=== PATIENT | female | born 1940 | race Caucasian/White ===

== ENCOUNTER 2023-10-09 22:49 | Inpatient (IN) | payer MEDICARE, SELFPAY ==
[2023-10-09] VITALS (8 sets, daily range): BP systolic 133–179; BP diastolic 80–103
[2023-10-09 20:48] LABS: Glucose - Point of Care 120 mg/dl (70-99)
--- NOTE | 2023-10-09 21:05 | ED.CVA ---
History of Present Illness
General
Chief Complaint: CVA/TIA Symptoms
Source: family (Son) and ambulance crew
Exam Limitations: none
Time Seen by Provider: 10/09/23 20:39
Onset of Stroke Symptoms
Onset of symptoms known: Yes
Date of onset of symptoms: 10/09/23
Time of onset of symptoms: 17:30
Travel History
Have you had any contact with someone who has COVID-19?: Unable to Answer
Do you have any symptoms of coronavirus? Fever > 100 degrees, chills, cough, shortness of breath, sore throat, loss of taste or smell, muscle aches, or headache?: Unable to Answer
History of Present Illness
History of Present Illness:
83-year-old female lives in assisted living with her . At about 530 her noted difficulty expressing herself and seemed confused. They contacted the staff and patient was brought in as a prehospital stroke alert. Initial history was
very difficult to get and the ambulance crew was somewhat confused as to the time onset and her baseline. Patient does not add history
Past History
Past History
ED Past Medical History: Arrthythmia, CAD, Other (Dementia) and Other (Rheumatoid arthritis)
Review of Systems
Review of Systems
All Other Systems: Not applicable
Phy Exam
Physical Exam
Physical Exam:
GENERAL: Alert. No distress. Nontoxic-appearing
EYE: Orbits normal.
NECK: Supple, no significant adenopathy.
ENT: Pharynx without erythema
CARDIAC: Regular rate and rhythm with moderate midsystolic murmur s.
LUNGS: Clear breath sounds,normal
ABDOMEN: Soft, without focal tenderness or distention
NEUROLOGICAL: Alert. Oriented to first name. Will reorient the last name with confrontation. Aware she is in the hospital. No facial droop. Eye confrontation normal. No arm drift. Bilateral lower extremity leg weakness but symmetrical. Light
touch difficult to evaluate but appears intact. Moderate expressive aphasia
SKIN: Warm and dry, no rash or lesion, no discoloration, skin intact.
MUSCULOSKELETAL: No edema,no deformity.Good color
PSYCH: Normal and appropriate interaction.
Scores
NIH Stroke Score
Level of Consciousness: 0 - Alert
LOC Questions: 0-Answers both correctly
LOC Commands: 0-Performs both correctly
Best Horizontal Gaze: 0-Normal
Visual Bridges: 0=Normal, no visual loss
Facial Palsy: 0=Normal, symmetrical
Motor - Right Arm: 0=No drift 10 seconds
Motor - Left Arm: 0=No drift 10 seconds
Motor - Right Le-No drift 5 seconds
Motor - Left Le-No drift 5 seconds
Limb Ataxia: 0-Absent
Sensation: 0-Normal
Best Language: 2-Severe aphasia
Dysarthria: 0-Normal
Extinction and Inattention: 0-No abnormality
Total Score:: 2
Course
Orders/Labs/Results
Orders:
Orders
10/09/23 20:35
CT Head W/o Cont STROKE ALERT Stat
Comment:
Reason For Exam: stroke alert
10/09/23 20:37
Electrocardiogram (*1) Urgent
Reason for Study: Other
Other Reason for Exam: Possible Stroke
Bedside Glucose- Treatment ONCE
Cardiac Monitoring- Treatment ONCE
EKG- Treatment ONCE
IV Insert/Care/Rem.- Treatment PRN
Urinalysis Reflex To Culture Urgent
Date Specimen was Collected: 10/09/23
Time Specimen was Collected: 20:37
Vital Signs As Directed
Frequency: Other
Weight As Directed
Frequency: Once
Comment: ZERO STRETCHER SCALE FOR ACCURATE WEIGHT
O2 Therapy [RESP] Urgent
Titrate/Wean O2 to maintain O2 sat greater than (%): 93
Special Instructions: MAINTAIN CONTINUOUS O2 SATS > OR = 93%
10/09/23 21:20
Complete Blood Count/With Diff Urgent
Comprehensive Metabolic Panel Urgent
PTT Urgent
Prothrombin Time Urgent
Troponin I Urgent
10/09/23 21:42
Aspirin Chewable [Low Strength Aspirin] 324 mg PO NOW STA
Clopidogrel Bisulfate [Plavix] 300 mg PO NOW STA
10/09/23 22:07
Admit/Transfer Patient As Directed
Co-Sign Provider:
Level of Care: Observation services
Assign to:: Telemetry
Physician / Group: lance
Diagnosis: cva
Reason for Telemetry: CVA/TIA
Date to Stop Telemetry: 10/12/23
Time to Stop Telemetry: 11:00
10/09/23 22:08
Code Status As Directed
Resuscitation Status: Full Code
10/09/23 22:49
Acetaminophen [Tylenol/Feverall] 650 mg RECTAL Q4HPRN PRN
Acetaminophen [Tylenol] 650 mg PO Q4HPRN PRN
Polyethylene Glycol Powder [Miralax] 17 grams PO DAILY PRN
10/09/23 22:49
Case Management Consult ONCE
Case Management Consult: Discharge Planning
Comment: stroke/tia
Consult Notification Routine
Specialty to Notify: Neurology
DIETARY CONSULT Routine
Reason for Consult: stroke/TIA
NEUROLOGY CONSULT Urgent
Consulting Provider: Steven Kunz
Was physician already notified: No
Reason for consult: cvA
Transition Program Manager Urgent
Glycohemoglobin (HgbA1c) Routine
MA [place] [facility] [place] Routine
Comment:
Reason For Exam: stroke/TIA
Recent pill cam endoscopy?: No
MA Neck With Contrast Routine
Comment:
Reason For Exam: stroke/TIA
Recent pill cam endoscopy?: No
MR Brain Without Contrast Routine
Comment:
Reason For Exam: stroke/TIA
Recent pill cam endoscopy?: No
Activity As Directed
Activity Level: As Tolerated
NIH Stroke Scale As Directed
Directions: Per protocol
Comment: every shift and with any change in condition or mental status
Neurological Checks As Directed
Frequency: q4h
Additional Instructions:: q4h x 24h upon admission to the floor, then qshift & with any change in condition
and mental status
Patient Education As Directed
Type: Stroke education packet
Comment: provide to patient and family
Pneumatic Compression Sleeves As Directed
Type: Thigh high
Swallow Screening CVA/TIA ONLY As Directed
Comment: NPO until swallowing screening completed
If patient FAILS swallow screening:: NPO, Speech Therapy consult, Aspiration Precautions
If patient PASSES swallow screening, diet:: Cholesterol Lowering
Vital Signs As Directed
Frequency: Per unit guidelines
Ot Eval And Treat Routine
Pt Eval And Treat Routine
Activity Level: As Tolerated
Speech Therapy Eval & Treat Routine
DX Deep Vein Thrombosis Video Routine
10/10/23 00:00
Oxycodone [Roxicodone] 10 mg PO Q6H
10/10/23 06:00
Basic Metabolic Panel IN AM
Cardiovascular Evaluation IN AM
Complete Blood Count/No Diff IN AM
Acetaminophen [Tylenol] 650 mg PO Q8H
mtuhnkvvtcu-njengjflb-ezk C-Mn [Glucosamine Chondroitin MaxStr] 1 cap PO TID@0600,1400,22
10/10/23 08:00
Aspirin Chewable [Low Strength Aspirin] 81 mg PO DAILY
Clopidogrel Bisulfate [Plavix] 75 mg PO DAILY
Docusate Sodium [Colace] 100 mg PO Q48H
Pantoprazole [Protonix] 40 mg PO DAILY
10/10/23 09:00
Rosuvastatin Calcium [Crestor] 40 mg PO DAILY@0900
camphor-methyl salicyl-menthol [Salonpas] 1 patch TOPICAL DAILY@0900
10/10/23 21:00
Sertraline HCl [Zoloft] 25 mg PO DAILY@2100
10/12/23 11:00
DC Protocol for Telemetry ONCE
Abnormal Lab Results
10/09/23 10/09/23
20:44 21:20
RBC 3.59 L 10^6/uL
(4.20-5.40)
Hgb 10.3 L g/dL
(12.0-16.0)
Hct 30.0 L %
(37.0-47.0)
Absolute Lymphs (auto) 1.1 L 10^3/uL
(1.2-3.4)
Absolute Monos (auto) 0.8 H 10^3/uL
(0.1-0.6)
Lymphocytes % 17.4 L %
(20.5-51.1)
Monocytes % 11.6 H %
(1.7-9.3)
Sodium 134 L mmol/L
(135-145)
Creatinine 0.5 L mg/dL
(0.6-1.0)
Glucose 111 H mg/dl
(70-99)
POC Glucose 120 H mg/dl
(70-99)
10/09/23 21:20
10/09/23 21:20
Vital Signs
Initial and Last Documented VS:
Initial Vital Signs
Temp Pulse Resp BP Pulse Ox
98.0 F 94 18 165/92 97
10/09/23 20:43 10/09/23 20:43 10/09/23 20:43 10/09/23 20:43 10/09/23 20:43
Last Documented Vital Signs
Temp Pulse Resp BP Pulse Ox
98.0 F 93 19 154/90 98
10/09/23 20:43 10/09/23 22:00 10/09/23 22:00 10/09/23 22:00 10/09/23 21:46
*Radiology
Radiology exam reviewed: radiology read reviewed (Negative CT)
*Pulse Oximetry
Patient hypoxic: no
*Critical Care Note
Total Time (30-74mins, 75-104mins- exclusive of procedures): 40
Update Note
Update Note:
2109.... Lengthy discussion with the son. Patient is in the window for thrombolytics. Major issue is clearly her speech. Risk of thrombolytics versus benefit explained to the son. 5% bleed rate. 30 to 35% improvement in 2 to 3 months. Son
states patient had a similar episode a year or so ago at [facility] that self resolved. He does not want to take the risk of a bleed. He is fully aware that this may not resolve and may stay permanent or may only partly improved.
ED Attending Note
-
Portions of this chart may have been created with voice recognition software.� Occasional wrong word or��sound alike� substitutions may have occurred due to the inherent limitations of voice recognition software.
Discharge Plan
Departure
Patient Disposition: Admit
Date of Disposition: 10/09/23
Time of Disposition: 21:43
Presentation/result/management discussed w/ accepting MD/DO: Neurology
Discharge Problem:
Expressive aphasia/CVA
Interventions
Interventions:
*Risk Screen - Suicide Last Done: 10/09/23 20:43
*General Assessment Last Done: 10/09/23 20:43
*Neglect/Abuse Screening Last Done: 10/09/23 20:43
ED- Fall Risk Assessment Last Done: 10/09/23 22:55
*ED COVID-19 Vaccine History Last Done: 10/09/23 22:54
*Nursing Disposition Last Done: 10/09/23 22:55
ED- Pulmonary Assessment Last Done: 10/09/23 21:23
ED- Neurological Assessment Last Done: 10/09/23 21:13
ED- Cardiac Assessment Last Done: 10/09/23 21:23
ED Swallowing Screen Last Done: 10/09/23 22:08
Discharge Date and Time
Discharge Date/Time: 10/09/23 22:56
[2023-10-09 21:26] LABS: % Basophils 0.6 % (0-2); % Eosinophils 2.9 % (0-6); % Immature Granulocytes 0.3 % (0-0.5); % Lymphocytes 17.4 % (20.5-51.1); % Monocytes 11.6 % (1.7-9.3); % Neutrophils 67.2 % (42.2-75.2); Absolute Eosinophils 0.2 10^3/uL (0-0.7); Absolute Lymphocytes 1.1 10^3/uL (1.2-3.4); Absolute Monocytes 0.8 10^3/uL (0.1-0.6); Absolute Neutrophils 4.4 10^3/uL (1.4-6.5); Hemoglobin 10.3 g/dL (12.0-16.0); Mean Corp Hgb Conc. 34.3 g/dL (33.0-37.0); Mean Corpuscular Hgb 28.7 pg (27.0-31.0); Mean Corpuscular Volume 83.6 fL (81.0-99.0); Mean Platelet Volume 8.9 fL (7.4-10.4); Nucleated Red Blood Cells % 0 %; Platelet Count 249 10^3/uL (130-400); Red Blood Cell Count 3.59 10^6/uL (4.20-5.40); Red Cell Dist. Width 14.4 % (11.5-14.5); White Blood Cell Count 6.6 10^3/uL (4.8-10.8)
[2023-10-09 21:38] LABS: ALT (SGPT) 11 U/L (0-35); AST (SGOT) 21 U/L (14-36); Alkaline Phosphatase 38 U/L (38-126); Blood Urea Nitrogen 15 mg/dl (7-17); Calcium 9.4 mg/dl (8.4-10.2); Carbon Dioxide 30 mmol/L (22-30); Chloride 99 mmol/L (98-107); Glucose 111 mg/dl (70-99); Potassium 3.7 mmol/L (3.5-5.1); Sodium 134 mmol/L (135-145); Total Bilirubin 0.4 mg/dl (0.2-1.3); Total Protein 6.6 g/dl (6.3-8.2); eGFR > 60.00
[2023-10-09 21:39] LABS: INR 0.96; PT 12.5 Sec (11.4-14.6)
[2023-10-09 21:40] LABS: APTT 27.5 Sec (23.4-35.0)
--- NOTE | 2023-10-09 21:46 | HPS.HSE ---
Family Physician
-
Family Physician: Luis Fernando Bonilla
Chief Complaint
-
dysphagia
History of Present Illness
83 year old with PMH for Gait dysfunction, CAD, Dementia, HLD, pulmonary HTn, valvular heart disease, GERD presented to us with dysphagia. patient having difficultly expressing. follows commands. denied FLAHERTY, dizzy or syncopal episode. denied chest
pain, sob. denied abdominal pain.
Head CT with no acute findings. admitting for further management.
Medical History
Past Medical History
Past Medical History: Reports Other
Additional Past Medical History:
gait dysfunction
CAD
RA
HLD
pulmonary HTN
Valvualr heart disease
GERD
Past Surgical History: Reports None
Social History
Unable to obtain full social history at this time due to: Other (aphasia)
Family History
Family History: Not pertinent
Allergies / Home Medications
Allergies reflects when Allergies were last updated in [facility].
Home Medications with original date entered in [facility]
Allergy/Medication List:
Allergies
Allergy/AdvReac Type Severity Reaction Status Date / Time
No Known Allergies Allergy Unverified 10/09/23 20:43
Home Medications
acetaminophen 325 mg tablet (Tylenol) 650 mg PO Q8H@0600,1400,22 3000 mg 10/09/23
camphor 3.1 %-methyl salicylate 10 %-menthol 6 % topical patch (Salonpas) 1 patch topical DAILY@0900 apply to painful area 10/09/23
docusate sodium 100 mg capsule 100 mg PO Q48H@0800 10/09/23
ahoksefrslf-oulajfggh-vnz C-Mn 500 mg-400 mg capsule (Glucosamine Chondroitin Maximum Strength) 1 cap PO TID@0600,1400,22 10/09/23
oxycodone 10 mg tablet 10 mg PO Q6H@0000,0600,12,18 10/09/23
pantoprazole 40 mg tablet,delayed release 40 mg PO DAILY 10/09/23
polyethylene glycol 3350 17 gram oral powder packet 17 g PO DAILY PRN constipation 10/09/23
rosuvastatin 10 mg tablet 10 mg PO DAILY@0900 10/09/23
sertraline 25 mg tablet 25 mg PO DAILY@2100 10/09/23
Review of Systems
-
Constitutional: Reports No Symptoms
EENT: Reports No Symptoms
Respiratory: Reports No Symptoms
Cardiac: Reports No Symptoms
Abdomen/GI: Reports No Symptoms
: Reports No Symptoms
Musculoskeletal: Reports No Symptoms
Skin: Reports No Symptoms
Neurological: Reports No Symptoms
Endocrine: Reports No Symptoms
Hematologic/Lymphatic: Reports No Symptoms
Psych: Reports No Symptoms
Physical Exam
Vital Signs
Vital Signs
Temp Pulse Resp BP Pulse Ox
98.0 F 97 16 157/101 95
10/09/23 20:43 10/09/23 21:15 10/09/23 21:15 10/09/23 21:15 10/09/23 21:00
Physical Exam
General: Well Developed, Well Nourished and No Apparent Distress
HEENT: NormoCephalic, Moist mucous membranes and Atraumatic
Respiratory: Clear
Cardiac: S1/S2 and Regular Rhythm; No Murmur or Rub
GI: Soft, Non Tender, Non Distended and Normal Bowel Sounds; No Organomegaly
Rectal: Deferred by Provider
Musculoskeletal: No Clubbing, No Cyanosis and No Edema
Skin: No Rash
Neuro: Nonfocal/grossly intact
Psych: Calm
Laboratory Results
-
10/09/23 21:20
10/09/23 21:20
Laboratory Results
PT 12.5 Sec (11.4-14.6) 10/09/23 21:20
INR 0.96 10/09/23 21:20
APTT 27.5 Sec (23.4-35.0) 10/09/23 21:20
Total Bilirubin 0.4 mg/dl (0.2-1.3) 10/09/23 21:20
AST 21 U/L (14-36) 10/09/23 21:20
ALT 11 U/L (0-35) 10/09/23 21:20
Alkaline Phosphatase 38 U/L (38-126) 10/09/23 21:20
Data Reviewed
-
CT Scan: Report Reviewed by me
Lab Data: Labs Reviewed by me
Impression/Plan
-
#expressive aphasia likely CVA
-head CT with no acute intracranial abnormality, moderate atrophy, minimal acute sphenoid sinusitis
-MRI of head
-MRA of neck
-asa/statin
-Plavix continued
-obtain a1c,lipid profile
-neurology consulted
#normocytic anemia likely chronic
-hgb 10.3
-no active bleeding
-ctm
#chronic pain
-oxy, Tylenol continued
#GERD
-PPI continued
#depression
-sertraline continued
#DVT prophylaxis
-scd
#CODE status
-full code
[2023-10-09 21:49] LABS: Troponin I < 0.012 ng/ml
[2023-10-09] MEDS: PLAVIX 300 MG PO (22:02)
[2023-10-09] MEDS: LOW STRENGTH ASPIRIN 324 MG PO (22:02)
--- NOTE | 2023-10-09 22:22 | W.PN.UPDATE ---
Update Note
Progress Note Update
Patient seen and examined independently. Agree with findings and plan as set forth in today's H&P by ARIS Mccoy.
Patient is an 83y F with PMH significant for ASCVD, dementia and valvular heart disease who presents to ED for evaluation of confusion, apparent speech abnormality. Patient resides at local assisted living where she was initially noted to appear
confused around 5:30PM by her . Patient was brought to the ED for further evaluation and treatment. Stroke alert was activated. Initial imaging of the head was unremarkable. Patient in the ED was noted to have significant expressive
aphasia without evident motor deficits or apparent receptive aphasia.
ED staff spoke with son re: thrombolytic therapy. Family decline TNKase.
Son states that patient had a similar episode about one year ago at [facility] which fully resolved.
Ass:
Expressive Aphasia
Likely CVA
ASCVD
Valvular Heart Disease
Pulmonary Hypertension
Senile Dementia
Normocytic Anemia
Plan:
Admit for further evaluation and treatment.
Family opted against thrombolytic therapy.
Begin DAPT.
Follow for changes in serial neuro exams.
PT / OT Speech therapy evals in AM.
Neuro consult.
MRI brain in AM.
Loose BP control for now - goal of normotension prior to discharge.
Check iron studies, etc.
[2023-10-10] VITALS (7 sets, daily range): BP systolic 143–166; BP diastolic 82–97; PULSE 94; O2SAT 96
[2023-10-10] MEDS: ROXICODONE 10 MG PO ×4 (00:39→17:33)
--- NOTE | 2023-10-10 01:41 | PTCARENOTE ---
Patient arrived from ED via stretcher at approximately 2245. Patient ambulated from stretcher to bed x1 assist with rolling walker. Patient AAOx1 - self only, confused/forgetful @ times w/ severe aphasia. Patient with history of dementia. VSS as
documented. Assessment as documented. NIH performed and documented upon admission. Patient with NIH of 6 - see NIH documentation. NIH of 2 in ER. RESIDENTIAL CONCIERGE notified of changes in NIH assessment. Patient oriented to room. Bed in lowest position. Call winston
within reach. Bed alarm placed for patient safety.
[2023-10-10] MEDS: TYLENOL 650 MG PO ×3 (05:27→21:10)
[2023-10-10 05:30] LABS: Hematocrit 31.4 % (37.0-47.0); Hemoglobin 10.5 g/dL (12.0-16.0); Mean Corp Hgb Conc. 33.4 g/dL (33.0-37.0); Mean Corpuscular Hgb 28.2 pg (27.0-31.0); Mean Corpuscular Volume 84.2 fL (81.0-99.0); Mean Platelet Volume 8.9 fL (7.4-10.4); Platelet Count 252 10^3/uL (130-400); Red Blood Cell Count 3.73 10^6/uL (4.20-5.40); Red Cell Dist. Width 14.3 % (11.5-14.5); White Blood Cell Count 6.7 10^3/uL (4.8-10.8)
[2023-10-10 05:57] LABS: Urine Albumin Negative (Neg - Trace); Urine Bilirubin Negative (Negative); Urine Character Clear (Clear); Urine Color Yellow; Urine Glucose Negative (Negative); Urine Ketone Negative (Negative); Urine Leukocyte Negative (Negative); Urine Nitrite Negative (Negative); Urine Occult Blood Trace (Negative); Urine Urobilinogen Negative (Neg - 1+)
[2023-10-10 06:00] LABS: Blood Urea Nitrogen 11 mg/dl (7-17); Calcium 9.9 mg/dl (8.4-10.2); Carbon Dioxide 31 mmol/L (22-30); Chloride 96 mmol/L (98-107); Glucose 95 mg/dl (70-99); HDL Cholesterol 52 mg/dl; Iron 68 ug/dl (37-170); LDL Cholesterol, Calculated 38 mg/dl; Potassium 3.5 mmol/L (3.5-5.1); Sodium 137 mmol/L (135-145); Total Cholesterol 104 mg/dl (50-199); Triglyceride 73 mg/dl (10-149); Very Low Density Lipoprotein 14 mg/dl (0-30); eGFR > 60.00
[2023-10-10 06:09] LABS: Urine Red Blood Cell 0-2 /HPF (0-2); Urine White Cell None Seen /HPF (0-5)
[2023-10-10 06:10] LABS: Percent Saturation 28 % (20-50); Total Iron Binding Capacity 240 ug/dl (265-497)
[2023-10-10] MEDS: CRESTOR 40 MG PO (08:04)
[2023-10-10] MEDS: LIDOCAINE 4% PATCH 1 PATCH TOPICAL (08:05)
[2023-10-10] MEDS: PROTONIX 40 MG PO (08:05)
[2023-10-10] MEDS: DESENEX/MITRAZOL/ZEASORB 1 APPLIC TOPICAL ×2 (08:05→21:09)
[2023-10-10] MEDS: LOW STRENGTH ASPIRIN 81 MG PO (08:05)
[2023-10-10] MEDS: PLAVIX 75 MG PO (08:05)
[2023-10-10] MEDS: COLACE 100 MG PO (08:05)
--- NOTE | 2023-10-10 08:21 | W.PN.HOSP.TC ---
Today's Communication/Plan
-
Await brain MRI
Assessment / Plan
Assessment / Plan
HPI: 83y F with PMH significant for ASCVD, dementia and valvular heart disease who presents to ED for evaluation of confusion, apparent speech abnormality. Patient resides at local assisted living where she was initially noted to appear
confused around 5:30PM by her . Patient was brought to the ED for further evaluation and treatment. Stroke alert was activated. Initial imaging of the head was unremarkable. Patient in the ED was noted to have significant expressive
aphasia without evident motor deficits or apparent receptive aphasia.
ED staff spoke with son re: thrombolytic therapy. Family decline TNKase.
Son states that patient had a similar episode about one year ago at [facility] which fully resolved.
A/P:
#Expressive Aphasia
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
Patient's family declined TNK
She was loaded with aspirin and Plavix in the ER
Appreciate neurology input, for brain MRI today
Continue DAPT with aspirin 81mg and Plavix 75mg daily x21 days, then continue aspirin 81mg daily only, indefinitely.
Permissive hypertension until today (10/10/23) at 1730, then goal normotension.
LDL is 38. Continue home rosuvastatin 10mg daily, HgbA1c is 5.5.
PT/OT/ST
#Normocytic Anemia
Iron studies reviewed, add ferritin
#ASCVD
#Valvular Heart Disease
#Pulmonary Hypertension
#Senile Dementia
DVT prophylaxis�start subcu heparin
Full code
Physical Exam
General: Frail, elderly, no acute distress
HEENT: Normocephalic, Atraumatic, EOMI, MMM
Respiratory: Clear to Auscultation bilaterally
Cardiac: Normal S1/S2, Regular Rate and Rhythm, loud murmur noted
GI: Soft, Nontender, Nondistended, Normal Bowel Sounds
Extremities: No Clubbing, Cyanosis, or Edema
Neuro: Expressive aphasia noted
Psych: Calm, Cooperative
Anticipated Discharge: 24 - 48 hours
Subjective/Interval History
-
Date of Service: October 10, 2023
Patient continues to have expressive aphasia, improved from admission. No fever, no vomiting.
Objective Data
-
Labs:
Laboratory Results
10/09/23 10/10/23
21:20 04:06
WBC 6.6 6.7
Hgb 10.3 L 10.5 L
Hct 30.0 L 31.4 L
Plt Count 249 252
PT 12.5
INR 0.96
APTT 27.5
Sodium 134 L 137
Potassium 3.7 3.5
Chloride 99 96 L
Carbon Dioxide 30 31 H
BUN 15 11
Creatinine 0.5 L 0.5 L
Glucose 111 H 95
Calcium 9.4 9.9
Total Bilirubin 0.4
AST 21
ALT 11
Alkaline Phosphatase 38
Vital Signs:
Vital Signs
Temp Pulse Resp BP Pulse Ox
98.4 F 91 16 162/88 95
10/10/23 07:40 10/10/23 07:40 10/10/23 07:40 10/10/23 07:40 10/10/23 07:40
I&O
10/09/23 10/10/23 10/11/23
06:59 06:59 06:59
Intake Total 180 / 180
Balance 180 / 180
[2023-10-10 08:52] LABS: Glycohemoglobin (HgbA1c) 5.5 % (4.0-5.6)
--- NOTE | 2023-10-10 08:55 | PTOTSP ---
Speech Language Pathology
Pt seen for speech/language evaluations. No dysarthria or dysphonia noted. Language evaluated via the Quick Aphasia Battery (QAB), form 1. Pt with an overall score of 4.76, indicating overall severe deficits. Pt with the following scores
(severity ratings) on the following subtests: word comprehension= 7.92 (mild); sentence comprehension= 0.00 (severe); word-finding= 1.50 (severe); grammatical construction= 5.00 (mod); speech motor programming= 10.00 (WNL); repetition= 5.42 (mod);
reading= 8.33 (mild). Pt with frequent jargon with neologisms and phonemic paraphasias. Pt only intermittently aware of these errors.
Pt also seen for clinical bedside swallow evaluation. RN reported no difficulty with meds whole with water earlier this date. P.O. trials of puree, regular solids, and thin liquids provided. Adequate mastication, bolus formation, and A-P transit
noted with no oral residue. No overt signs of aspiration.
Recommend:
(1) Continue regular solids/thin liquids
(2) General aspiration precautions
(3) Meds as tolerated
(4) INVESTIGATOR FRAUD to continue to follow for aphasia tx
--- NOTE | 2023-10-10 09:09 | CON.NEURO4 ---
Addendum entered and electronically signed by Steven Kunz MD 10/10/23 11:31:
Studies reviewed.
I have personally examined the patient. I reviewed and agree with the CORRECTIONS SERGEANT's Note.
My addenda:
Awake, alert, interactive. No acute distress.
Speech some automatic phrases, some neologisms. Rate of speech production was unremarkable. Patient at times correctly produces short phrases. At times receptive aphasia, mostly patient able to perform two-step requests without difficulty. No
tremor.
Extra-ocular movements grossly intact.
Facial movements full and symmetric. Hearing intact to normal conversational volume.
Normal UE movements bilaterally.
Neck: full ROM.
Chest: no dyspnea
Heart: no JVD
Ext: (-) Clubbing, (-) Cyanosis, (-) Edema
IMPRESSIONS/RECOMMENDATIONS:
Abrupt onset of worsening aphasia
Although the patient was not utilizing present medications and has a history of rheumatoid arthritis, the possibility of encephalitis is possible although less likely than either exacerbation of underlying dementia or acute left�hemispheric ischemic
stroke
Check MRI of brain
Patient initiated on aspirin and clopidogrel, maintain same until clarity regarding the possibility of acute ischemic stroke
Consider lumbar puncture based on MRI of brain results
Continue rosuvastatin
Consider provision of medical educational materials
Check blood work for possible metabolic causes for the patient's underlying cognitive dysfunction
Will continue to follow patient.
Original Note:
Documented by User: Madison Real NP 10/10/23 10:58
Consultation - Neurology 4
-
CONSULTING PHYSICIAN: Steven Kunz MD
REFERRING PHYSICIAN: Hospitalists/ARIS Mccoy
DICTATED BY: ARIS Buitrago
DATE/TIME OF REQUEST: 10/09/23
DATE/TIME OF CONSULTATION: 10/10/23
Reason for Consultation: Aphasia
History of Present Illness:
This is an 83-year-old right-handed female who has presented to the hospital on 10/09/23 with report of confusion and expressive aphasia. Patient was noted to be in her usual state yesterday (10/09/23) when around 1730 her noted her to be
confused with nonsensical speech. CT head was obtained in the ER and was negative for any acute abnormalities. NIHSS was 2 for severe aphasia. Patient's family declined TNK and there was no evidence of LVO for IAT, NIHSS <6. She was loaded with
aspirin and Plavix in the ER. Today, patient remains aphasic and is unable to provide many details about recent events. She denies any headache, dizziness, swallowing difficulty, numbness, weakness, chest pain, palpitations, and shortness of breath.
She notes chronic left shoulder pain and intermittent nausea. She has no history of TIA, stroke, or events like this in the past and she is not taking any blood-thinning medications.
Past Medical History: Dementia, CAD, HTN, rheumatoid arthritis, anemia
Surgical History: b/l TKR, left shoulder TSA, b/l cataract removal
Family History: Reviewed and noncontributory.
Social History: Denies tobacco, alcohol, and illicit drug use.
Allergies: No known allergies.
Home Medications: See below.
Review of Symptoms:
Patient denies any fever, headache, chest pain, shortness of breath, or symptoms.
�Per the HPI.�All systems are reviewed negative except above.
Physical Exam:
The patient is afebrile, abdomen is nondistended, breathing is unlabored, skin is warm and dry, no edema.
NIH Stroke Scale:
I performed the NIH stroke scale on the patient on 10/10/23 at 0920. The patient scored 3 points on the NIH stroke scale assessment, which were assigned as follows: See below.
Neurologic Examination:
The patient is awake and alert. She is oriented to self only. She is able to follow commands. She can answer intermittent questions appropriately. There is moderate expressive aphasia, very slight receptive aphasia. Speech is jargon/perseveration
with intermittent appropriate words. No dysarthria. On cranial nerve assessment, pupils are 3 mm bilateral, round and reactive to light and accommodation. MAITE visual bridges. Extraocular movements are restricted upwards and laterally. There is no
facial asymmetry. Hearing is intact bilaterally to normal conversation volume. Tongue palate and uvula are midline. Sternocleidomastoid strengths are full bilaterally. Motor strengths are 5/5 bilateral upper and lower extremities on medical research
[place] scale. There is no drift or involuntary movement noted. Deep tendon reflexes are 2+ bilateral upper and lower extremities and Babinski is absent bilaterally. There was no extinction noted on double simultaneous stimulation. Coordination is
intact by finger to nose bilaterally. Severe swan neck changes.
Lab Results: See below.
Neuro Imaging:
1. CT Head 10/09/23: No acute intracranial abnormality noted. Moderate atrophy. Aspects score 10.
Differentials for the patient's presentation include:
1. Acute L MCA territory ischemic infarct likely producing speech changes.
Patient has the following risk factors for their symptoms: Age, HLD
IV Tenecteplase/IAT candidacy: Patient's family declined TNK and there was no evidence of LVO for IAT, NIHSS <6.
Recommendations:
-Continue DAPT with aspirin 81mg and Plavix 75mg daily x21 days. After 21 days, discontinue Plavix and continue aspirin 81mg daily only, indefinitely.
-Permissive hypertension until today (10/10/23) at 1730, then goal normotension.
-MRI brain noncontrast, MRA head/neck ordered/pending.
-LDL goal <70. LDL is 38. Continue home rosuvastatin 10mg daily.
-Goal normoglycemia, hbA1c is 5.5.
-NIHSS and neurological checks per unit guidelines.
-Provide patient/family with a stroke education packet.
-PT/OT/ST evaluations.
-DVT prophylaxis.
-Will follow pending results.
Discussed patient care with: Dr. Kunz, the patient
Vital Signs and Labs
-
Vital Signs and Labs:
Vital Signs
Temp Pulse Resp BP Pulse Ox
98.4 F 91 16 162/88 95
10/10/23 07:40 10/10/23 07:40 10/10/23 07:40 10/10/23 07:40 10/10/23 10:23
Lab Results
10/10/23 04:06
10/10/23 04:06
PT 12.5 Sec (11.4-14.6) 10/09/23 21:20
INR 0.96 10/09/23 21:20
APTT 27.5 Sec (23.4-35.0) 10/09/23 21:20
Sodium 137 mmol/L (135-145) 10/10/23 04:06
Potassium 3.5 mmol/L (3.5-5.1) 10/10/23 04:06
BUN 11 mg/dl (7-17) 10/10/23 04:06
Glucose 95 mg/dl (70-99) 10/10/23 04:06
Calcium 9.9 mg/dl (8.4-10.2) 10/10/23 04:06
LDL Cholesterol, Calc 38 mg/dl 10/10/23 04:06
Medications
-
Active Medications
Generic Name Dose Route Start Last Admin
Trade Name Freq PRN Reason Stop Dose Admin
Acetaminophen 650 mg 10/10/23 06:00 10/10/23 05:27
Acetaminophen 325 Mg Tablet PO 11/07/23 05:59 650 mg
Q8H CHRISTINE Administration
Aspirin 81 mg 10/10/23 08:00 10/10/23 08:05
Aspirin 81 Mg Chewable Tablet PO 11/07/23 07:59 81 mg
DAILY CHRISTINE Administration
Clopidogrel Bisulfate 75 mg 10/10/23 08:00 10/10/23 08:05
Clopidogrel 75 Mg Tablet PO 11/07/23 07:59 75 mg
DAILY CHRISTINE Administration
Docusate Sodium 100 mg 10/10/23 08:00 10/10/23 08:05
Docusate Sodium 100 Mg Capsule PO 11/07/23 07:59 100 mg
Q48H CHRISTINE Administration
Lidocaine 1 patch 10/10/23 08:00 10/10/23 08:05
Lidocaine 4% Topical Patch TOPICAL 11/07/23 07:59 1 patch
DAILY CHRISTINE Administration
Miconazole Nitrate 0 applic 10/10/23 08:00 10/10/23 08:05
Miconazole Powder Bottle TOPICAL 11/07/23 07:59 1 applic
BID CHRISTINE Administration
Oxycodone HCl 10 mg 10/10/23 00:00 10/10/23 05:27
Oxycodone 10 Mg Regular Release Tablet PO 10/24/23 00:00 10 mg
Q6H CHRISTINE Administration
Pantoprazole Sodium 40 mg 10/10/23 08:00 10/10/23 08:05
Pantoprazole 40 Mg Delayed Release Tablet PO 11/07/23 07:59 40 mg
DAILY CHRISTINE Administration
Patch Removal 1 patch 10/10/23 20:00
Remove Lidocaine Patch REMOVE 11/07/23 19:59
DAILY@2000 CHRISTINE
Polyethylene Glycol 17 grams 10/09/23 22:49
Polyethylene Glycol Powder 17 Grams Packet PO 11/06/23 22:48
DAILY PRN
constipation
Rosuvastatin Calcium 40 mg 10/10/23 09:00 10/10/23 08:04
Rosuvastatin (Crestor) 10 Mg Tablet PO 11/07/23 08:59 40 mg
DAILY@0900 CHRISTINE Administration
Sertraline HCl 25 mg 10/10/23 21:00
Sertraline 25 Mg Tablet PO 11/07/23 20:59
DAILY@2100 CHRISTINE
Sodium Chloride 0 flush 10/09/23 23:00
Sodium Chloride 0.9% (Flush) Syringe IV 11/06/23 22:59
PER PROTOCOL CHRISTINE
Home Medications
�Medication �Instructions �Recorded
acetaminophen 325 mg tablet 650 mg PO Q8H@0600,1400,22 3000 mg 10/09/23
(Tylenol)
camphor 3.1 %-methyl salicylate 10 1 patch topical DAILY@0900 apply 10/09/23
%-menthol 6 % topical patch to painful area
(Salonpas)
docusate sodium 100 mg capsule 100 mg PO Q48H@0800 Constipation 10/09/23
kdzzzxjnyxj-udexwycdp-shk C-Mn 500 1 cap PO TID@0600,1400,22 10/09/23
mg-400 mg capsule (Glucosamine Supplement
Chondroitin Maximum Strength)
oxycodone 10 mg tablet 10 mg PO Q6H@0000,0600,12,18 Pain 10/09/23
pantoprazole 40 mg tablet,delayed 40 mg PO DAILY Gastrointestinal 10/09/23
release Issue
polyethylene glycol 3350 17 gram 17 g PO DAILY PRN constipation 10/09/23
oral powder packet
rosuvastatin 10 mg tablet 10 mg PO DAILY@0900 High 10/09/23
Cholesterol
sertraline 25 mg tablet 25 mg PO DAILY@2100 Mental 10/09/23
Health/Anxiety
NIH Stroke Score
Subsequent NIH Scale
Date of Subsequent NIH Scale: 10/10/23
Time of Subsequent NIH Scale: 09:20
NIH Stroke Score
Level of Consciousness: 0 - Alert
LOC Questions: 2-Neither correct
LOC Commands: 0-Performs both correctly
Best Horizontal Gaze: 0-Normal
Visual Bridges: 0=Normal, no visual loss
Facial Palsy: 0=Normal, symmetrical
Motor - Right Arm: 0=No drift 10 seconds
Motor - Left Arm: 0=No drift 10 seconds
Motor - Right Le-No drift 5 seconds
Motor - Left Le-No drift 5 seconds
Limb Ataxia: 0-Absent
Sensation: 0-Normal
Best Language: 1-Mild aphasia
Dysarthria: 0-Normal
Extinction and Inattention: 0-No abnormality
Total Score:: 3
Modified [place] (mRS) Score
Modified [place] Scale (mRS): Moderate disability. Requires some help, able to walk unassisted.
Score: 3

Documented by User: Steven Kunz MD 10/10/23 11:23
NIH Stroke Score
NIH Stroke Score
Total Score:: 3
Modified [place] (mRS) Score
Score: 3
[2023-10-10] MEDS: HEPARIN 5000 UNITS SC ×2 (11:58→21:10)
[2023-10-10 12:59] LABS: Erythrocyte Sed Rate 12 mm/hour (0-20)
[2023-10-10 14:19] LABS: Folate 12.5 ng/ml (2.76-20); Vitamin B12 500 pg/ml (239-931)
--- NOTE | 2023-10-10 14:31 | CM ---
Reviewed the chart notes and spoke with the patient at the bedside. The patient is admitted under observational status. The [facility] letter was provided and explained. The patient had no questions with regards to the letter.
The patient reports she resides with her son in a two story home with two steps to enter. The patient has a rolling walker. The patient reports no VN or SNF in the past. CM continues to be available to patient/family and is monitoring medical
plan for needs at discharge.
Plan: Discharge plans will depend on the patient's progress.
[2023-10-10] MEDS: APRESOLINE 20 MG PO (17:33)
[2023-10-10] MEDS: ZOLOFT 25 MG PO (21:10)
[2023-10-11] VITALS (11 sets, daily range): BP systolic 123–183; BP diastolic 67–104; PULSE 118–148; O2SAT 96
[2023-10-11] MEDS: ROXICODONE 10 MG PO ×5 (00:07→23:27)
[2023-10-11] MEDS: APRESOLINE 20 MG PO (03:56)
[2023-10-11] MEDS: TYLENOL 650 MG PO ×3 (05:31→20:41)
--- NOTE | 2023-10-11 07:46 | W.PN.NEURO.1 ---
Addendum entered and electronically signed by Simon Fuentes MD 10/11/23 14:11:
Other possibility is polypharmacy, consideration for small decrease in Oxycodone, is on 10 mg q6hr.
Discussed over the phone with her Son had said he had no knowledge of an existing diagnosis of dementia or cognitive or memory problems.
Original Note:
Today's Communication / Plan
-
-Goal normotension
-Continue NIH and neurologic checks
-Minimize sedating medications to prevent delirium
-Continue aspirin and clopidogrel DAPT therapy, total 21 days ten aspirin thereafter
-Would check TTE to see if signs of left atrial dilation that may indicate underlying arrhythmia
-Would pursue short term cardiac monitoring in the outpatient setting
-Continue her home Rosuvastatin 10 mg on discharge, LDL is at goal
-Speech therapy evaluations
-Supportive care otherwise
-Neurology follow up in 4-6 weeks
Will sign off call with questions and concerns
Neuro Assessment/Plan
Assessment
83 year old woman history of CAD, dementia, valvular heart disease presenting with confusion, speech difficulty
Luckily great improvement in symptoms to point of no appreciable aphasia AM of 10/10
MRI brain negative for infarction or any significant stenosis
Given aspirin nand plavix in ER
LDL 38
Most likely this was a left hemisphere TIA versus fluctuation in confusion with language/aphasia problem due to dementia
Most likely an Alzheimer's dementia present given no Parkinsonism, brain MRI not supportive of vascular dementia
Subjective/Objective
Subjective Data
Date of Service: October 11, 2023
No acute events, patient with no complaints, can't remember any of the speech difficulty seen yesterday
Objective Data
Vital Signs
Temp Pulse Resp BP Pulse Ox
97.7 F 93 18 156/85 96
10/11/23 03:30 10/11/23 06:23 10/11/23 03:30 10/11/23 06:23 10/11/23 03:30
Lab Results
10/10/23 04:06
10/10/23 04:06
PT 12.5 Sec (11.4-14.6) 10/09/23 21:20
INR 0.96 10/09/23 21:20
APTT 27.5 Sec (23.4-35.0) 10/09/23 21:20
Sodium 137 mmol/L (135-145) 10/10/23 04:06
Potassium 3.5 mmol/L (3.5-5.1) 10/10/23 04:06
BUN 11 mg/dl (7-17) 10/10/23 04:06
Glucose 95 mg/dl (70-99) 10/10/23 04:06
Calcium 9.9 mg/dl (8.4-10.2) 10/10/23 04:06
LDL Cholesterol, Calc 38 mg/dl 10/10/23 04:06
Vitamin B12 500 pg/ml (399-931) 10/10/23 04:06
Patient Allergies
No Known Allergies Allergy (Unverified 10/09/23 20:43)
Review of Systems
-
History Source: Patient
All other systems: Reviewed and negative
Constitutional: No Symptoms
EENT: No Symptoms Reported
Respiratory: No Symptoms
Cardiac: No Symptoms
Abdomen/GI: No Symptoms
Genitourinary: No Symptoms
Musculoskeletal: No Symptoms
Skin: No Symptoms
Neuro: Speech Problem
Endocrine: No Symptoms
Hematologic / Lymphatic: No Symptoms
Allergy / Immunology: No Symptoms
Physical Exam
-
General: No Apparent Distress
Eyes: No Ptosis
HEENT: Normocephalic
Neck: No Bruits Bilaterally
Respiratory: Clear to Auscultation
Cardiac: Regular Rhythm
GI: Normal Bowel Sounds
Skin: Unremarkable
Extremities: No Clubbing
Psych: Unremarkable
Extended Neurological Exam
Mood & Affect: Mood Unremarkable and Affect Unremarkable
Attention Span & Concentration: Awake, Alert and Interactive
Memory: Other (Doesn't know month or year, knows current president, no recall of recent events)
Tremor: Hand Tremor Absent
Involuntary Movement: None
Speech: Quality Unremarkable and Quantity Unremarkable; Negative Expressive Aphasia, Receptive Aphasia or Dysarthric
Cranial Nerve II: Left Eye: Pupillary Reactivity Unremarkable, Pupillary Size Unremarkable, Visual Bridges Intact and Visual Bridges Reduced
Cranial Nerve II: Right Eye: Pupillary Reactivity Unremarkable, Pupillary Size Unremarkable and Visual Bridges Intact
Cranial Nerves III, IV, : Extraocular Movement: Extraocular Movement Full in all Directions
Cranial Nerve VII: Facial Symmetry: Normal Facial Symmetry
Muscle Strength, Overall: Full Throughout
Muscle Bulk & Tone: Bulk Unremarkable
Pronator Drift: No Drift in Upper Extremities
Deep Tendon Reflexes: Trace Throughout
Babinski Sign: Absent Bilaterally
Data Reviewed
-
CT Head: Report Reviewed and Image Reviewed
MRI Head: Report Reviewed and Image Reviewed
MRA Head: Report Reviewed and Image Reviewed
MRA Neck: Report Reviewed and Image Reviewed
Labs: Report Reviewed
[2023-10-11] MEDS: CRESTOR 40 MG PO (08:32)
[2023-10-11] MEDS: ZESTRIL 10 MG PO ×2 (08:32→20:37)
[2023-10-11] MEDS: PROTONIX 40 MG PO (08:32)
--- NOTE | 2023-10-11 08:32 | W.PN.HOSP.TC ---
Today's Communication/Plan
-
Discharge to short-term rehab when bed available
Assessment / Plan
Assessment / Plan
HPI: 83y F with PMH significant for ASCVD, dementia and valvular heart disease who presents to ED for evaluation of confusion, apparent speech abnormality. Patient resides at local assisted living where she was initially noted to appear
confused around 5:30PM by her . Patient was brought to the ED for further evaluation and treatment. Stroke alert was activated. Initial imaging of the head was unremarkable. Patient in the ED was noted to have significant expressive
aphasia without evident motor deficits or apparent receptive aphasia.
ED staff spoke with son re: thrombolytic therapy. Family decline TNKase.
Son states that patient had a similar episode about one year ago at [facility] which fully resolved.
A/P:
#Expressive Aphasia
Brain MRI negative for acute CVA
Neurology suspect secondary to TIA versus dementia versus polypharmacy
Patient's family declined TNK
She was loaded with aspirin and Plavix in the ER
Continue DAPT with aspirin 81mg and Plavix 75mg daily x21 days, then continue aspirin 81mg daily only, indefinitely.
LDL is 38. Continue home rosuvastatin 10mg daily, HgbA1c is 5.5.
PT/OT/ST -stable for discharge to short-term rehab when bed available
#Benign essential hypertension
Start lisinopril 10 mg twice a day
# Anemia of chronic disease
Iron studies normal
#ASCVD
#Valvular Heart Disease
#Pulmonary Hypertension
#Senile Dementia
DVT prophylaxis�change to subcu Lovenox
Full code
Called 10/10 to give him update, he did not answer
Total time spent to see the patient on the floor, examine the patient, review data and lab results, discuss treatment plan with patient, nursing staff around 50 minutes.
Physical Exam
General: Frail, elderly, no acute distress
HEENT: Normocephalic, Atraumatic, EOMI, MMM
Respiratory: Clear to Auscultation bilaterally
Cardiac: Normal S1/S2, Regular Rate and Rhythm, loud murmur noted
GI: Soft, Nontender, Nondistended, Normal Bowel Sounds
Extremities: No Clubbing, Cyanosis, or Edema
Neuro: Expressive aphasia noted
Psych: Calm, Cooperative
Anticipated Discharge: Within 24 hours
Subjective/Interval History
-
Date of Service: October 11, 2023
Patient speech has normalized. She complains of chronic left shoulder pain. No fever, no vomiting.
Objective Data
-
Vital Signs:
Vital Signs
Temp Pulse Resp BP Pulse Ox
97.7 F 93 18 156/85 96
10/11/23 03:30 10/11/23 06:23 10/11/23 03:30 10/11/23 06:23 10/11/23 03:30
I&O
10/10/23 10/11/23 10/12/23
06:59 06:59 06:59
Intake Total 180 / 180 1080 / 1080
Balance 180 / 180 1080 / 1080
[2023-10-11] MEDS: LOW STRENGTH ASPIRIN 81 MG PO (08:33)
[2023-10-11] MEDS: HEPARIN 5000 UNITS SC (08:33)
[2023-10-11] MEDS: LIDOCAINE 4% PATCH 1 PATCH TOPICAL ×2 (08:33→12:14)
[2023-10-11] MEDS: PLAVIX 75 MG PO (08:33)
[2023-10-11] MEDS: DESENEX/MITRAZOL/ZEASORB 1 APPLIC TOPICAL ×2 (08:34→20:38)
[2023-10-11] MEDS: MIRALAX 17 GRAMS PO (08:34)
[2023-10-11] MEDS: APRESOLINE 50 MG PO (12:13)
--- NOTE | 2023-10-11 15:00 | PTCARENOTE ---
Patient tachy on tele monitor, 110s-120s sinus tach with PACs. Patient sitting in chair, states no complaints at this time. MD made aware, PRN hydralazine discontinued.
--- NOTE | 2023-10-11 16:50 | CM ---
Reviewed the chart notes and spoke with the patient's son Sha via telephone. Per Sha, patient resides with spouse in assisted living at [facility]. Will need to reach out to administration tomorrow to see if willing to accept back with PT/OT in
facility. PT recommending SNF, son requests return to facility. CM continues to be available to patient/family and is monitoring medical plan for needs at discharge.
Plan: Discharge plans will depend on if [facility] will accept back.
[2023-10-11] MEDS: LOVENOX 40 MG SC (18:12)
--- NOTE | 2023-10-11 18:45 | PTCARENOTE ---
Patient with sustained tachycardia on monitor, 120s-130s sinus tach with PACs. Patient sitting in chair, denies any concerns at this time. MD made aware, EKG obtained by tech - sinus tachycardia. Results sent to MD, no new orders at this time.
[2023-10-11] MEDS: ZOLOFT 25 MG PO (20:37)
[2023-10-12 03:21] VITALS: BP 110/64
[2023-10-12] MEDS: TYLENOL 650 MG PO ×2 (04:05→13:57)
[2023-10-12] MEDS: ROXICODONE 10 MG PO ×2 (05:42→12:34)
--- NOTE | 2023-10-12 07:28 | W.PN.HOSP.TC ---
Addendum entered and electronically signed by Minh Espinoza MD 10/13/23 11:16:
No encephalopathy, patient has dementia
Original Note:
Today's Communication/Plan
-
Medically stable for discharge today
Assessment / Plan
Assessment / Plan
HPI: 83y F with PMH significant for ASCVD, dementia and valvular heart disease who presents to ED for evaluation of confusion, apparent speech abnormality. Patient resides at local assisted living where she was initially noted to appear
confused around 5:30PM by her . Patient was brought to the ED for further evaluation and treatment. Stroke alert was activated. Initial imaging of the head was unremarkable. Patient in the ED was noted to have significant expressive
aphasia without evident motor deficits or apparent receptive aphasia.
ED staff spoke with son re: thrombolytic therapy. Family decline TNKase.
Son states that patient had a similar episode about one year ago at [facility] which fully resolved.
A/P:
#Expressive Aphasia
Brain MRI negative for acute CVA
Neurology suspect secondary to TIA versus dementia versus polypharmacy
Patient's family declined TNK
She was loaded with aspirin and Plavix in the ER
Continue DAPT with aspirin 81mg and Plavix 75mg daily x21 days, then continue aspirin 81mg daily only, indefinitely.
LDL is 38. Continue home rosuvastatin 10mg daily, HgbA1c is 5.5.
PT/OT/ST -stable for [facility] to [facility] to [facility] today
Family wishes her to go back to [facility] as if [facility] will take her back
#Benign essential hypertension
Started lisinopril 10 mg twice a day
#Sinus tachycardia with PACs
Start metoprolol tartrate 12.5 mg twice a day
# Anemia of chronic disease
Iron studies normal
#Chronic left shoulder pain
Continue oxycodone 10 mg 4 times daily, continue lidocaine patch, add ice treatment
#ASCVD
#Valvular Heart Disease
#Pulmonary Hypertension
#Senile Dementia
DVT prophylaxis�change to subcu Lovenox
Full code
Updated on
Physical Exam
General: Frail, elderly, no acute distress
HEENT: Normocephalic, Atraumatic, EOMI, MMM
Respiratory: Clear to Auscultation bilaterally
Cardiac: Normal S1/S2, Regular Rate and Rhythm, loud murmur noted
GI: Soft, Nontender, Nondistended, Normal Bowel Sounds
Extremities: No Clubbing, Cyanosis, or Edema
Neuro: Expressive aphasia noted
Psych: Calm, Cooperative
Anticipated Discharge: Within 24 hours
Subjective/Interval History
-
Date of Service: October 12, 2023
No acute events. Patient complains of left shoulder pain. No speech changes. No fever, no vomiting.
Objective Data
-
Vital Signs:
Vital Signs
Temp Pulse Resp BP Pulse Ox
97.4 F 100 16 110/64 97
10/12/23 03:21 10/12/23 03:21 10/12/23 03:21 10/12/23 03:21 10/12/23 03:21
I&O
10/11/23 10/12/23 10/13/23
06:59 06:59 06:59
Intake Total 1080 / 1080 1260 / 1260
Balance 1080 / 1080 1260 / 1260
[2023-10-12 07:50] VITALS: BP 146/83
[2023-10-12] MEDS: PROTONIX 40 MG PO (08:53)
[2023-10-12] MEDS: CRESTOR 40 MG PO (08:56)
[2023-10-12] MEDS: LOW STRENGTH ASPIRIN 81 MG PO (08:57)
[2023-10-12] MEDS: ZESTRIL 10 MG PO (08:58)
[2023-10-12] MEDS: COLACE 100 MG PO (08:58)
[2023-10-12] MEDS: MIRALAX PO ×2 (09:00→09:23)
[2023-10-12] MEDS: LIDOCAINE 4% PATCH 1 PATCH TOPICAL (09:01)
[2023-10-12] MEDS: PLAVIX 75 MG PO (09:03)
[2023-10-12] MEDS: DESENEX/MITRAZOL/ZEASORB 1 APPLIC TOPICAL (09:04)
[2023-10-12 10:37] VITALS: BP 160/85
[2023-10-12] MEDS: LOPRESSOR 12.5 MG PO (10:38)
--- NOTE | 2023-10-12 12:35 | PTOTSP ---
ST Follow-Up
Given pt's acute change in mental status upon admission and unclear baseline cognitive status (difficult to discern if she has completely returned to her baseline or not) pt would benefit from ongoing supervision, support, and cognitive linguistic
[employer] tx upon discharge for her own safety at the SNF level of care.
Recommendations:
- Pt to continue to receive cognitive linguistic tx while in house from [facility] [employer].
- Pt to be d/c to SNF for further [employer] cognitive linguistic tx.
--- NOTE | 2023-10-12 13:24 | W.DCSUMMARY ---
Discharge Summary
Discharge Data
Date of Admission: 10/09/23
Date of Discharge: 10/12/23
-
Pending Results: No
Hospital Course
Discharge diagnoses:
Worsening expressive aphasia, possibly from transient ischemic attack versus worsening dementia versus polypharmacy
Senile dementia
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
Uncontrolled hypertension
Sinus tachycardia with premature atrial contractions
Anemia of chronic disease
Coronary artery disease
Valvular heart disease
Pulmonary hypertension
Consults: Neurology
Brain MRI:
No acute intracranial abnormality noted.
No focal hemodynamically significant stenosis, aneurysm or occlusion.
Hospital course:
83-year-old female with a past medical history of senile dementia, chronic left shoulder pain on chronic opioids, hypertension, and coronary artery disease presents with worsening aphasia. Patient was seen in conjunction with neurology. Brain MRI
is negative for acute CVA. Neurology suspects either transient ischemic attack versus dementia versus polypharmacy. Patient is on oxycodone 10 mg 4 times a day for left shoulder pain.
In either case, patient was treated for transient ischemic attack. Neurology recommended aspirin 81 mg and Plavix 75 mg daily for 21 days through 10/29/23, then aspirin 81 mg only. Patient's LDL is 30, she can continue her home rosuvastatin. Her
hemoglobin A1c is 5.5.
Patient had uncontrolled hypertension. She is continued on lisinopril 10 mg twice a day. Her blood pressure improved.
Patient was also noted to have sinus tachycardia with premature atrial contractions. She was started on metoprolol tartrate 12.5 mg twice a day, this was increased to 25 mg twice a day upon discharge.
Patient was seen in conjunction with PT, who recommended short-term rehab. Patient and family wish for her to return to [facility]. She is medically stable for discharge back to [facility] with home PT. She needs to follow-up with her primary care
doctor 1 week.
Disposition: Home with home PT
Discharge planning: Required 45 minutes
Discharge Plan
-
Patient Disposition: Home with Home Care
Discharge Diagnosis/Procedures: Transient expressive aphasia, possible transient ischemic attack versus worsening dementia versus polypharmacy, chronic left shoulder pain on chronic opioids with dependency, hypertension, sinus tachycardia
Condition: Good
Diet: Regular
Activity: As tolerated
Other Services: VN and PT
Activity Restrictions/Additional Instructions:
Take Plavix 75 mg daily through 10/29/2023. Continue aspirin 81 mg daily.
Consider decreasing oxycodone dose or frequency if possible.
Follow-up with your primary care doctor in 1 week.
Referrals:
Luis Fernando Bonilla MD [Family Provider] - in one week
Prescriptions:
New
miconazole nitrate [Miconazorb AF] 2 % Powder
1 applic topical BID 7 Days Qty: 85 0RF
Rx Instructions:
to moist groin folds or breast folds
lidocaine 4 % Adhesive Patch,Medicated
1 patch topical DAILY Qty: 30 0RF
metoprolol succinate 25 mg tablet extended release 24 hr
25 mg PO HS Qty: 30 0RF
aspirin [Children's Aspirin] 81 mg Tablet,Chewable
81 mg PO DAILY Qty: 30 0RF
clopidogrel 75 mg Tablet
75 mg PO DAILY Qty: 16 0RF
lisinopril 10 mg Tablet
10 mg PO BID Qty: 60 0RF
polyethylene glycol 3350 17 gram/dose powder
17 g PO DAILY Qty: 510 0RF
Continued
acetaminophen [Tylenol] 325 mg Tablet
650 mg PO Q8H@0600,1400,22
polyethylene glycol 3350 17 gram Powder In Packet
17 g PO DAILY PRN (Reason: constipation)
pantoprazole 40 mg Tablet,Delayed Release (Dr/Ec)
40 mg PO DAILY
docusate sodium 100 mg Capsule
100 mg PO Q48H@0800
Patient Comments:
10/09/2023, next date on Monday (10/10/2023) per [place] paperwork.
sertraline 25 mg Tablet
25 mg PO DAILY@2100
jsglgfsoiio-twvdjcguv-pqh C-Mn [Glucosamine Chondroitin MaxStr] 500-400 mg Capsule
1 cap PO TID@0600,1400,22
rosuvastatin 10 mg Tablet
10 mg PO DAILY@0900
oxycodone 10 mg Tablet
10 mg PO Q6H@0000,0600,12,18
Salonpas 3.1-10-6 % Adhesive Patch,Medicated
1 patch TOPICAL DAILY@0900
Patient Comments:
10/09/2023, on 12 hrs, off 12 hours.
Discharge Orders:
Discharge Patient (As Directed); Ordered 10/12/23
Ordered By: Minh Espinoza
Discharge Date and Time
Discharge Date/Time: 10/12/23 16:47
Print Language: [place] LUCIAN
--- NOTE | 2023-10-12 13:56 | CM ---
Addendum entered by Tonia Morales RN 10/12/23 14:07:
[facility] Call report to: [phone]
Fax report to: [phone]
Patient's son Sha will transport patient around 4pm today.
Addendum entered by Tonia Morales RN 10/12/23 14:05:
Patient's son does not want patient to go to SNF. Son feels that the needs can be met at the facility where the patient resides with her spouse in an assisted living situation.
Original Note:
Reviewed the chart notes and spoke with Itzel with [facility] ([phone]). Informed ready for discharge. IMM discussed with kristi Dalton via telephone. Sha will provide transportation home to [facility]. VN referral sent to .
[facility]'s/[facility] VN which is what [facility] uses. CM continues to be available to patient/family and is monitoring medical plan for needs at discharge.
Plan: [facility] with [facility] VN services.
--- NOTE | 2023-10-12 14:34 | PTCARENOTE ---
Addendum entered by Erinn Arnold RN 10/12/23 16:34:
pt discharged via wheelchair back to [facility]. son is helping patient get back to previous living facility. IV site and tele monitor removed prior to discharge.
Original Note:
report called to [phone] to return to [facility] which is her previous living site. pt son will be taking her back to the facility at 1600. vitals to be taken at 1500 for regular
[2023-10-12 14:46] VITALS: BP 157/84
--- NOTE | 2023-10-13 09:20 | PN.CDI ---
CDI
- -
CDI:
Physician Documentation Request
Admit Date: 10/09/23 22:49
Dear Doctor Do,
Please review the following and provide your response in the progress notes.
Clinical Indicators:
- 10/08 ER Physician 'difficulty expressing herself and seemed confused'
- 10/11 PN 'Brain MRI negative for acute CVA...Neurology suspect secondary to TIA versus dementia versus polypharmacy'
- new diagnosis 'Benign essential hypertension'
- started lisinopril
- Hydralazine given x 3
Selected Entries
10/09/23
20:43 10/09/23
21:45 10/11/23
03:30
Blood pressure 165/92 179/103 172/96
10/11/23
03:48 10/11/23
07:30 10/11/23
08:32
Blood pressure 176/90 183/104 176/98
Please clarify the diagnosis with the above findings:
Hypertensive encephalopathy
TIA and confusion without encephalopathy
Other
Use of terms such as suspected, likely, concern for, or probable (associated with a specific diagnosis that is being evaluated, monitored, or treated as if it exists) are acceptable and can be coded in the inpatient setting, when documented at the
time of discharge.
Thank you,
Juan Ramon Storm RN
CDI Specialist
Please use your independent medical judgment in providing your response.
== END 2023-10-12 16:47 | disposition home health service (06) | DRG 92 ==
LOC: 2 NORTH 22:49
PROVIDERS: Registered Nurse; ADMITTING PHYSICIAN Hospitalist; ATTENDING PHYSICIAN Family Medicine; CONSULT PHYSICIAN Psychiatry & Neurology Neurology; EMERGENCY PHYSICIAN Emergency Medicine; FAMILY PHYSICIAN Internal Medicine
DX: R47.01 Aphasia (principal); G45.9 Transient cerebral ischemic attack, unspecified; F03.90 Unspecified dementia, unspecified severity, without behavioral disturbance, psychotic disturbance, mood disturbance, and anxiety; G89.29 Other chronic pain; K21.9 Gastro-esophageal reflux disease without esophagitis; F32.A Depression, unspecified; D63.8 Anemia in other chronic diseases classified elsewhere; I25.10 Atherosclerotic heart disease of native coronary artery without angina pectoris; I27.20 Pulmonary hypertension, unspecified; I10 Essential (primary) hypertension; M25.512 Pain in left shoulder
CPT/HCPCS: 70450; 70544; 70548; 70551; 80048; 80053; 80061; 81003; 81015; 82607; 82728; 82746; 82962; 83036; 83540; 83550; 84443; 84484; 85025; 85027; 85610; 85652; 85730; 87070; 92507; 92523; 92610; 93005; 93306; 97116; 97163; 97167; 97530; 97535; 99291; A9585

== ENCOUNTER 2024-01-18 23:34 | Inpatient (IN) | payer MEDICARE, SELFPAY ==
[2024-01-18] VITALS (9 sets, daily range): BP systolic 87–143; BP diastolic 49–77; BMI 20.6
--- NOTE | 2024-01-18 19:46 | ED.GENMED ---
History of Present Illness
General
Chief Complaint: Fever
Source: patient and records
Time Seen by Provider: 01/18/24 19:39
History of Present Illness
History of Present Illness:
This patient is an 83-year-old female presents emergency department for weakness tremors and chills. Patient states that the tremor started last night, however as per bedside RN, staff reported tremors started today. Patient was noted to have a
fever here. In review of systems, patient denies headache, new neck pain, chest pain, cough, sore throat, rhinorrhea, abdominal pain, back pain, urinary symptoms. She describes her chronic extremity and neck pain, but otherwise no new symptoms
with the exception of feeling very fatigued with chills.
Past History
Past History
ED Past Medical History: Arrthythmia, CAD, HTN, Other (Dementia) and Other (Rheumatoid arthritis, anemia, dementia, pulmonary hypertension)
Social History
Tobacco: Non-smoker
Alcohol: None
Drug: None
Living: assisted
Phy Exam
Physical Exam
Physical Exam:
awake, but tired appearing, pleasant, answers most questions
PERRL, no photophobia
mm sl dry, o/p clear, no trismus/drool
neck supple, nontender, trach midline
hrt rrr, loud systolic murmur noted
lung cta
abd soft, nt, nd
extrem contracted (baseline), no c/c, tr le edema
skin warm, well perfused
neuro intact, oriented X3 except for month
Course
Orders/Labs/Results
Orders:
Orders
01/18/24 19:31
Electrocardiogram (*1) Urgent
Reason for Study: Other
Other Reason for Exam: Possible Sepsis
Cardiac Monitoring- Treatment ONCE
EKG- Treatment ONCE
IV Insert/Care/Rem.- Treatment PRN
CR Chest - 2 Views Urgent
Comment:
Reason For Exam: suspected infection
O2 Therapy [RESP] Urgent
Titrate/Wean O2 to maintain O2 sat greater than (%): 93
Special Instructions: TO MAINTAIN CONTINUOUS O2 SATS > OR = 93%
Pulse Ox/cont/shift [RESP] Urgent
Quantity: 1
Special Instructions: CONTINUOUS
01/18/24 19:36
Acetaminophen [Tylenol] 1,000 mg .ROUTE .STK-MED ONE
01/18/24 19:46
COVID-19 Antigen Urgent
Source: Nasal Swab
Complete Blood Count/With Diff Urgent
Comprehensive Metabolic Panel Urgent
Lactic Acid Q4H
Comment: ON ICE, CANCEL 2ND ORDER IF FIRST LACTIC ACID LEVEL <2
Blood Culture Urgent
FIONA Source: Blood/Venous
Specimen Description:
01/18/24 20:06
Acetaminophen [Tylenol] 1,000 mg PO NOW STA
01/18/24 21:44
Urinalysis Reflex To Culture Urgent
Date Specimen was Collected: 01/18/24
Time Specimen was Collected: 19:31
Urine Microscopic Reflex Cult Urgent
01/18/24 22:13
Piperacillin/Tazo 4.5 Gram [Zosyn] 4.5 gram in 100 ml IV NOW
Vancomycin 1 Gram/200 ml [Vancocin] 1 gram in 200 ml IV NOW
01/18/24 22:14
0.9% Sodium Chloride 500 ml [Nss] 500 ml IV BOLUS
01/18/24 23:00
Flush (0.9% Sodium Chloride) [Flush (Nss)] See Dose Instructions IV PER PROTOCOL
01/18/24 23:08
0.9% Sodium Chloride 500 ml [Nss] 500 ml IV BOLUS
01/18/24 23:09
INF RAPID [Influenza A+B Rapid Molecular] Urgent
FIONA Source: Nasal Swab
Specimen Description:
01/18/24 23:27
Admit/Transfer Patient As Directed
Co-Sign Provider:
Level of Care: Inpatient admission
Assign to:: IMU- Intermediate Care
Physician / Group: otis rodriguez
Diagnosis: septic shock unclear source, chronic tachycardia
Reason for Hospitalization: septic shock unclear source, chronic tachycardia
Expected length of stay greater than two midnights?: Yes
ELOS- Estimated Length of Stay in days: 5
I certify the patient meets the requirements for IP care: Yes
01/18/24 23:28
Code Status As Directed
Resuscitation Status: Full Code
01/19/24 01:31
0.9% Sodium Chloride 1000 ml [Nss] 1,000 ml IV 80 mls/hr
Acetaminophen [Tylenol] 650 mg PO Q4HPRN PRN
Oxycodone [Roxicodone] 10 mg PO Q6@0000,0600,1200,1800
Polyethylene Glycol Powder [Miralax] 17 grams PO DAILYPRN PRN
VANCOMYCIN Pharmacy to Dose [VANCOCIN Pharmacy to Dose] 1 each Pharmacy To Prepare [Call Pharmacy To Prepare] 0 ml IV PER PROTOCOL
01/19/24 01:31
Activity As Directed
Activity Level: With Assistance
Intake/ Output As Directed
Frequency: Per unit guidelines
Vital Signs As Directed
Frequency: Per unit guidelines
Weight As Directed
Frequency: Daily
Ot Eval And Treat Routine
Pt Eval And Treat Routine
Activity Level: With Assistance
DX Deep Vein Thrombosis Video Routine
01/19/24 04:00
Piperacillin/Tazo 3.375 Gram [Zosyn] 3.375 gram in 50 ml IV Q6H
01/19/24 06:00
Complete Blood Count/With Diff IN AM
Comprehensive Metabolic Panel IN AM
Procalcitonin IN AM
PCT Algorithmm Indication: Sepsis
01/19/24 08:00
Aspirin Chewable [Low Strength Aspirin] 81 mg PO DAILY
Docusate Sodium [Colace] 100 mg PO Q48H
Ondansetron Orally Disint [Zofran Odt (Orally Disintegrating)] 4 mg PO DAILY
Pantoprazole [Protonix] 40 mg PO DAILY
01/19/24 09:00
Rosuvastatin Calcium [Crestor] 10 mg PO DAILY@0900
camphor-methyl salicyl-menthol [Salonpas] See Dose Instructions TOPICAL DAILY@0900
01/19/24 Dinner
Cholesterol Lowering
Cholesterol Lowering: Sodium, 2 Gram
01/19/24 18:00
Enoxaparin Sodium [Lovenox] 30 mg SC QPM
01/19/24 22:00
Sertraline HCl [Zoloft] 25 mg PO HS
01/20/24 06:00
Complete Blood Count/With Diff IN AM
Comprehensive Metabolic Panel IN AM
01/21/24 06:00
Complete Blood Count/With Diff IN AM
Comprehensive Metabolic Panel IN AM
01/22/24 06:00
Complete Blood Count/With Diff IN AM
Comprehensive Metabolic Panel IN AM
Abnormal Lab Results
01/18/24 01/18/24
19:46 21:44
WBC 12.0 H 10^3/uL
(4.8-10.8)
RBC 3.48 L 10^6/uL
(4.20-5.40)
Hgb 10.1 L g/dL
(12.0-16.0)
Hct 30.8 L %
(37.0-47.0)
MCHC 32.8 L g/dL
(33.0-37.0)
Absolute Neuts (auto) 10.3 H 10^3/uL
(1.4-6.5)
Absolute Lymphs (auto) 0.9 L 10^3/uL
(1.2-3.4)
Neutrophils % 85.7 H %
(42.2-75.2)
Lymphocytes % 7.4 L %
(20.5-51.1)
Chloride 97 L mmol/L
(98-107)
BUN 18 H mg/dl
(7-17)
Glucose 108 H mg/dl
(70-99)
Calcium 10.3 H mg/dl
(8.4-10.2)
Ur Occult Blood Reflex 2+ A
(Negative)
Leukocyte Esterase Rfl Trace A
(Negative)
Urine RBC 11-15 A /HPF
(0-2)
Urine Bacteria (Reflex) Few A
(Negative)
01/18/24 19:46
01/18/24 19:46
Vital Signs
Initial and Last Documented VS:
Initial Vital Signs
Temp Pulse Resp BP Pulse Ox
102.3 F H 122 18 141/77 94
01/18/24 19:32 01/18/24 19:32 01/18/24 19:32 01/18/24 19:32 01/18/24 19:32
Last Documented Vital Signs
Temp Pulse Resp BP Pulse Ox
98.9 F 92 13 90/52 95
01/19/24 01:55 01/19/24 01:30 01/19/24 01:30 01/19/24 01:30 01/19/24 01:30
MDM/Problems Addressed
Differential Diagnosis Includes:
But not limited to sepsis, UTI, pneumonia, COVID, etc. etc.
*Pulse Oximetry
Patient hypoxic: no
*EKG
Interpreted by ED Provider?: Yes
Rate: tachycardiac
Rhythm: sinus
Interval: normal interval
QRS Pattern: right bundle branch block
Ischemia: no ischemia
*Critical Care Note
Total Time (30-74mins, 75-104mins- exclusive of procedures): Not Applicable
Update Note
Update Note:
Although patient has neck and extremity pain, she does not exhibit signs or symptoms to suggest source of infection and neck, moves neck easily, nontender, etc.
Chest x-ray read by me NAD
BMP pending, lactic within normal limits, COVID-negative. Patient has leukocytosis which is consistent with suspected SIRS/infection. Baseline anemia.
U/a not suggestive of uti, unclear source, rigors/fevers etc noted with sustained tachycardia. Will rx abx, admission, ivf.
ED Attending Note
-
Portions of this chart may have been created with voice recognition software.� Occasional wrong word or��sound alike� substitutions may have occurred due to the inherent limitations of voice recognition software.
Discharge Plan
Departure
Patient Disposition: Admit
Date of Disposition: 01/18/24
Time of Disposition: 22:15
Admit to: Telemetry
Presentation/result/management discussed w/ accepting MD/DO: Hospitalist
Condition: Fair
Discharge Problem:
Fever
Interventions
Interventions:
*Risk Screen - Suicide Last Done: 01/18/24 19:32
*General Assessment Last Done: 01/18/24 19:32
*Neglect/Abuse Screening Last Done: 01/18/24 19:32
*ED COVID-19 Vaccine History Last Done: 01/18/24 19:32
*Nursing Disposition Last Done: 01/19/24 01:19
ED- Neurological Assessment Last Done: 01/18/24 19:43
ED-Skin Assessment Last Done: 01/18/24 19:43
Discharge Date and Time
Discharge Date/Time: 01/19/24 01:19
[2024-01-18 19:57] LABS: % Basophils 0.4 % (0-2); % Eosinophils 1.6 % (0-6); % Immature Granulocytes 0.3 % (0-0.5); % Lymphocytes 7.4 % (20.5-51.1); % Monocytes 4.6 % (1.7-9.3); % Neutrophils 85.7 % (42.2-75.2); Absolute Basophils 0.1 10^3/uL (0-0.2); Absolute Eosinophils 0.2 10^3/uL (0-0.7); Absolute Lymphocytes 0.9 10^3/uL (1.2-3.4); Absolute Monocytes 0.6 10^3/uL (0.1-0.6); Absolute Neutrophils 10.3 10^3/uL (1.4-6.5); Hematocrit 30.8 % (37.0-47.0); Hemoglobin 10.1 g/dL (12.0-16.0); Mean Corp Hgb Conc. 32.8 g/dL (33.0-37.0); Mean Corpuscular Volume 88.5 fL (81.0-99.0); Mean Platelet Volume 8.7 fL (7.4-10.4); Nucleated Red Blood Cells % 0 %; Platelet Count 312 10^3/uL (130-400); Red Blood Cell Count 3.48 10^6/uL (4.20-5.40); Red Cell Dist. Width 12.6 % (11.5-14.5)
[2024-01-18 20:06] LABS: Lactic Acid 1.1 mmol/L (0.7-2.0)
[2024-01-18] MEDS: TYLENOL 1000 MG PO (20:06)
[2024-01-18 20:15] LABS: COVID-19 Antigen Negative (Negative)
[2024-01-18 20:34] LABS: ALT (SGPT) < 10 U/L (0-35); AST (SGOT) 26 U/L (14-36); Albumin 4.3 g/dl (3.5-5.0); Alkaline Phosphatase 46 U/L (38-126); Blood Urea Nitrogen 18 mg/dl (7-17); Calcium 10.3 mg/dl (8.4-10.2); Carbon Dioxide 28 mmol/L (22-30); Chloride 97 mmol/L (98-107); Estimated Creatinine Clearance 61 ml/min; Glucose 108 mg/dl (70-99); Potassium 4.6 mmol/L (3.5-5.1); Sodium 135 mmol/L (135-145); Total Bilirubin 0.4 mg/dl (0.2-1.3); Total Protein 7.2 g/dl (6.3-8.2); eGFR > 60.00
[2024-01-18 22:00] LABS: Urine Albumin Trace (Neg - Trace); Urine Bilirubin Negative (Negative); Urine Character Clear (Clear); Urine Color Yellow; Urine Glucose Negative (Negative); Urine Ketone Negative (Negative); Urine Leukocyte Trace (Negative); Urine Nitrite Negative (Negative); Urine Occult Blood 2+ (Negative); Urine Specific Gravity 1.015 (<1.030); Urine Urobilinogen Negative (Neg - 1+)
[2024-01-18] MEDS: ZOSYN 100 IV (22:23)
[2024-01-18] MEDS: NSS 500 IV ×3 (22:23→23:57)
[2024-01-18 22:24] LABS: Urine Bacteria Few (Negative)
--- NOTE | 2024-01-18 22:44 | HPS.HSE ---
Family Physician
-
Family Physician: Kavon Elias
Chief Complaint
-
Weakness, tremors, chills today
History of Present Illness
83-year-old female complaining of weakness, tremors and chills that started last night although staff reported to ER symptoms started today. She was noted to have 100.4 fever in the ER. She denies headache, sore throat, chest pain, cough,
shortness of breath, abdominal pain, nausea, vomiting, diarrhea, urinary symptoms. She is oriented to name, place of living, hospital, and some of history. According to her MAR from [facility] she started Augmentin 875 mg twice daily on 01/10
for unclear reason I spoke with Khai and Renetta [employer] at [facility] medication was ordered but never given unclear reason why it was ordered no documentation in the patient's chart per [facility] staff. I attempted to clarify with patient's
Elias he is unsure what she was placed on this for. She has chronic shoulder pain and neck pain for which she is on oral opiates.
She has past medical history mild�moderate dementia, chronic ambulatory dysfunction, moderate aortic stenosis, CAD, HLD, GERD, dysphagia, RA, depression, chronic left shoulder pain on chronic oral opiates, history sinus tachycardia, TIA October 2023
suspected versus polypharmacy had negative brain MRI, chronic ambulatory dysfunction uses walker
Medical History
Past Medical History
Past Medical History: Reports Other
Additional Past Medical History:
mild�moderate dementia
chronic ambulatory dysfunction uses walker at baseline
RA
History chronic sinus tachycardia
moderate aortic stenosis
chronic left shoulder pain on chronic oral opiates
CAD
HLD
GERD
, depression
TIA October 2023 suspected versus polypharmacy had negative brain MRI
Past Surgical History: Reports Other
Additional Past Surgical History:
Bilateral knee replacements
Bilateral toe bunionectomies
Tonsillectomy as child
Social History
Tobacco: Non-smoker
Alcohol: None
Drug: None
Personal:
Living: Assisted Living ([facility] with [facility]as)
Employment: Retired
Family History
Family History: Not pertinent
Allergies / Home Medications
Allergies reflects when Allergies were last updated in Sendmail.
Home Medications with original date entered in Sendmail
Allergy/Medication List:
Allergies
Allergy/AdvReac Type Severity Reaction Status Date / Time
No Known Allergies Allergy Unverified 10/09/23 20:43
Home Medications
acetaminophen 325 mg tablet (Tylenol) 650 mg PO Q8H@,,22 3000 mg 10/09/23
camphor 3.1 %-methyl salicylate 10 %-menthol 6 % topical patch (Salonpas) 1 patch topical DAILY@0900 apply to painful area 10/09/23
docusate sodium 100 mg capsule 100 mg PO Q48H@0800 Constipation 10/09/23
azocvexcvkg-oxhtndywe-qui C-Mn 500 mg-400 mg capsule (Glucosamine Chondroitin Maximum Strength) 1 cap PO TID@06,14, Supplement 10/09/23
oxycodone 10 mg tablet 10 mg PO Q6H@00,06,12,18 Pain 10/09/23
pantoprazole 40 mg tablet,delayed release 40 mg PO DAILY Gastrointestinal Issue 10/09/23
polyethylene glycol 3350 17 gram oral powder packet 17 g PO DAILYPRN PRN constipation 10/09/23
rosuvastatin 10 mg tablet 10 mg PO DAILY@0900 High Cholesterol 10/09/23
sertraline 25 mg tablet 25 mg PO HS Mental Health/Anxiety 10/09/23
aspirin 81 mg chewable tablet (Children's Aspirin) 81 mg PO DAILY #30 tabs 10/12/23
lisinopril 10 mg tablet 10 mg PO BID #60 tabs 10/12/23
metoprolol succinate 25 mg tablet,extended release 24 hr 25 mg PO HS #30 tabs 10/12/23
amoxicillin 875 mg-potassium clavulanate 125 mg tablet 1 tab PO BID 01/18/24
bismuth subsalicylate 262 mg chewable tablet (Pepto-Bismol) 2 tab PO QIDPRN PRN upset stomach 01/18/24
mirtazapine 7.5 mg tablet 7.5 mg PO HS 01/18/24
ondansetron 4 mg disintegrating tablet 4 mg translingual DAILY 01/18/24
Review of Systems
-
History Source: Patient
Constitutional: Reports Fever, Fatigue and Chills
EENT: Denies Sore Throat or Runny Nose
Respiratory: Denies Cough or Trouble Breathing
Cardiac: Denies Chest Pain, Diaphoresis, Palpitations or Syncope
Abdomen/GI: Denies Abdominal Pain, Nausea, Vomiting, Diarrhea, Constipated or Bloody Stools
: Denies Dysuria, Frequency, Flank Pain, Incontinence or Difficulty Voiding
Musculoskeletal: Reports Other (Chronic deformities to PIP and MCP joints and bilateral feet secondary to RA); Denies Joint Pain or Edema
Skin: Denies Itching or Rash
Neurological: Denies Dizzy, Headache or Weakness
Endocrine: Reports No Symptoms
Hematologic/Lymphatic: Reports No Symptoms
Psych: Reports Calm
Physical Exam
Vital Signs
Vital Signs
Temp Pulse Resp BP Pulse Ox
100.4 F H 127 15 119/61 97
01/18/24 22:28 01/18/24 21:00 01/18/24 21:00 01/18/24 21:00 01/18/24 21:00
Physical Exam
General: Comfortable, Conversant, Fever, Chills and Other (Lethargic)
HEENT: NormoCephalic, Anicteric, PERRLA and Other (Dry oral mucosa)
Respiratory: Clear; No Wheezes, Rales or Rhonchi
Cardiac: S1/S2, Tachycardia (Sinus) and Murmur (Holosystolic 4/6); No Peripheral Edema
Breast: Deferred by me
GI: Soft, Non Tender, Non Distended, Normal Bowel Sounds and No Hepatosplenomegaly
Rectal: Deferred by Provider
Genito-urinary: Deferred by me
Musculoskeletal: No Clubbing, No Cyanosis and No Edema
Skin: Warm and Dry; No Rash
Neuro: Awake, Alert, Oriented (To name, place of living [facility], hospital, Elias), No Motor Deficits, Nonfocal/grossly intact and No Sensory Deficits; No Slurred Speech, Facial Droop, Tremors or Sedated
Psych: Calm
Laboratory Results
-
01/18/24 19:46
01/18/24 19:46
Laboratory Results
Lactic Acid 1.1 mmol/L (0.7-2.0) 01/18/24 19:46
Total Bilirubin 0.4 mg/dl (0.2-1.3) 01/18/24 19:46
AST 26 U/L (14-36) 01/18/24 19:46
ALT < 10 U/L (0-35) 01/18/24 19:46
Alkaline Phosphatase 46 U/L (38-126) 01/18/24 19:46
Data Reviewed
-
Diagnostic Radiology: Report Reviewed by me
Lab Data: Labs Reviewed by me
Impression/Plan
-
Impression/plan:
Admit to IMU
#Septic shock unclear source possible bacteremia
Symptoms symptoms of hypotension, tachycardia, fever today
-Recent Augmentin 875mg bid started 01/11/24 unclear reason spoke with Sravan [employer] at [facility] medication was ordered but never given unclear reason why it was ordered no documentation in the patient's chart per [facility] staff
WBC 12 with left shift, 100.4 F, HR 127, 119/61 > 87/63
COVID-negative, CXR negative, flu neg UA trace leukocytes few bacteria
-Check blood culture x 1, check lactic acid
-Tylenol as needed fever
-IV vancomycin IV Zosyn given in ER
IV NSS 500 cc bolus given in ER, will give additional NSS 500 cc bolus due to hypotension 87/63
-still persistent 93/51-Additional IV NSS 500 cc bolus given will observe in ER
CXR: No acute cardiopulmonary process
#Tachycardia with history of sinus tachycardia
IV NSS, IV Tylenol
-Hold metoprolol succinate 25 mg at bedtime due to hypotension May resume when BP stable
EKG: Sinus tach 121 bpm incomplete RBBB with history of, QTc 443 MS
2D echo 10/11/2023: EF 65 to 70%, small left ventricle, no wall abnormalities. Moderate LVH, stage II diastolic dysfunction and increased filling pressures
Severely dilated left atrium
Mild mitral stenosis
Moderate aortic stenosis peak mean gradient 42 mmHg / 25 mmHg
Pulm arterial pressure 20-25 mmHg
#Mild�moderate dementia
-Oriented to first and last name, place of living [facility], 's name and some of medical history
#Chronic right shoulder pain on chronic oral opiates
#Rheumatoid arthritis with deformities to hands and feet
#Chronic ambulatory dysfunction uses walker at baseline
Continue oxycodone 10 mg every 6 hours with Colace 100 mg every 48 H and as needed MiraLAX for constipation
-May continue Salonpas to shoulder
#Chronic RBBB
#Chronic moderate aortic stenosis peak mean gradient 42 mmHg / 25 mmHg
#Chronic anemia-normocytic
Hgb 10.1 appears baseline
#TIA versus polypharmacy October 2023
Had negative brain MRI
-Was started on aspirin 81 mg, Plavix 75 mg 21 days and to continue home Crestor A1c was 5.5
#HTN with history of uncontrolled HTN
BP 119/61
-Continue metoprolol succinate 25 mg at bedtime
-Continue lisinopril 10 mg twice daily
#GERD
Continue Protonix 40 mg daily
#Anxiety
-Continue Zoloft 25 mg at bedtime
#Insomnia
-Hold mirtazapine for sedation
DVT prophylaxis
Subcu Lovenox
Full code per patient and chart from [facility]
--- NOTE | 2024-01-18 23:01 | W.PN.UPDATE ---
Addendum entered and electronically signed by Sheeba Strickland MD 01/19/24 00:35:
systolic pressure mid-80's despite 1.5L
-continue admission to IMU
-additional 500cc, if remains hypotensive will start levophed
Addendum entered and electronically signed by Sheeba Strickland MD 01/19/24 00:00:
Able to contact facility - Augmentin was ordered 01/10 for unknown reason but patient had not taken.
Original Note:
Update Note
Progress Note Update
This is an addendum to H&P written by CONTROLS DESIGN ENGINEER Binta Garcia
I saw and examined the patient.
The CONTROLS DESIGN ENGINEER's note was reviewed and I agree with the note.
Comment:
Ms. Angelia Patterson is a 83 yo woman with hx dementia, chronic pain with opiate dependence, essential HTN, CAD presents to the ER with rigors. Patient found to be febrile to 102.3. She denies cough, congestion, headache, abdominal pain, or any
other localizing symptoms.
VS: T 102.3, P 122, RR 18, BP 141/77, SpO2 94%.
Labs with WBC 12, Hg 10.1, PLT 312, Na 135, K+ 4.6, Cl 97, CO2 28, Cr 0.6, Glucose 108, lactate 1.1
UA with 6-10 WBC
CXR
IMPRESSION:
No Acute cardiopulmonary process.
covid negative
MAR: NS 500cc, Vanc/Zosyn
Sepsis unknown source
-BP drop to mid-80's in ER, will give additional fluids
-blood cultures drawn, lactate OK
-patient was on Augmentin prescribed 01/10 but patient and unable to state why
-covid negative, flu testing ordered
-will continue Vanc/Zosyn until cultures return
-procal tomorrow AM
Essential HTN
-hold ELECTRONIC SYSTEMS TECHNICIAN lisinopril
opioid dependence
chronic pain
-ELECTRONIC SYSTEMS TECHNICIAN oxycodone
Anxiety/Depression
-ELECTRONIC SYSTEMS TECHNICIAN Sertraline
DVT PPx Lovenox subQ
FULL CODE
[2024-01-18] MEDS: FLUSH (NSS) 1 FLUSH IV (23:18)
[2024-01-18] MEDS: VANCOCIN 200 IV (23:19)
[2024-01-19] VITALS (46 sets, daily range): BP systolic 86–149; BP diastolic 50–89; PULSE 96–97; BMI 20.4
[2024-01-19] MEDS: NSS 500 IV (00:37)
[2024-01-19] MEDS: NSS 1000 IV ×2 (02:42→17:32)
[2024-01-19] MEDS: ROXICODONE PO (02:43)
--- NOTE | 2024-01-19 02:44 | PTCARENOTE ---
received patient from the ED. awake but drowsy, able to answer admission questions. lungs clear on 2L NC. +BS. pt voiding using the purewick. fluids started. BP stable
[2024-01-19 05:45] LABS: Hematocrit 25.9 % (37.0-47.0); Hemoglobin 8.7 g/dL (12.0-16.0); Mean Corpuscular Volume 88.4 fL (81.0-99.0); Red Blood Cell Count 2.93 10^6/uL (4.20-5.40); White Blood Cell Count 14.3 10^3/uL (4.8-10.8)
[2024-01-19 05:46] LABS: % Basophils 0.4 % (0-2); % Immature Granulocytes 0.4 % (0-0.5); % Lymphocytes 9.2 % (20.5-51.1); % Monocytes 5.1 % (1.7-9.3); % Neutrophils 83.9 % (42.2-75.2); Absolute Basophils 0.1 10^3/uL (0-0.2); Absolute Eosinophils 0.1 10^3/uL (0-0.7); Absolute Lymphocytes 1.3 10^3/uL (1.2-3.4); Absolute Monocytes 0.7 10^3/uL (0.1-0.6); Mean Corp Hgb Conc. 33.6 g/dL (33.0-37.0); Mean Corpuscular Hgb 29.7 pg (27.0-31.0); Mean Platelet Volume 9.1 fL (7.4-10.4); Platelet Count 313 10^3/uL (130-400); Red Cell Dist. Width 12.8 % (11.5-14.5)
[2024-01-19 05:47] LABS: Absolute Immature Granulocytes 0.1 10^3/uL (0-0.05); Nucleated Red Blood Cells % 0 %
[2024-01-19 05:54] LABS: Procalcitonin 0.62 ng/ml (0.0-0.25)
[2024-01-19 06:04] LABS: ALT (SGPT) < 10 U/L (0-35); AST (SGOT) 21 U/L (14-36); Albumin 3.2 g/dl (3.5-5.0); Alkaline Phosphatase 35 U/L (38-126); Blood Urea Nitrogen 13 mg/dl (7-17); Calcium 9.3 mg/dl (8.4-10.2); Carbon Dioxide 24 mmol/L (22-30); Chloride 105 mmol/L (98-107); Estimated Creatinine Clearance 61 ml/min; Glucose 105 mg/dl (70-99); Potassium 4.2 mmol/L (3.5-5.1); Sodium 135 mmol/L (135-145); Total Bilirubin 0.5 mg/dl (0.2-1.3); Total Protein 5.8 g/dl (6.3-8.2); eGFR > 60.00
[2024-01-19] MEDS: ZOSYN 50 IV ×4 (06:07→21:19)
[2024-01-19] MEDS: ROXICODONE 10 MG PO ×3 (06:08→17:12)
[2024-01-19] MEDS: COLACE 100 MG PO (07:52)
[2024-01-19] MEDS: LOW STRENGTH ASPIRIN 81 MG PO (07:53)
[2024-01-19] MEDS: PROTONIX 40 MG PO (07:53)
--- NOTE | 2024-01-19 08:01 | PHA.VAN.IN ---
Assessment
- Assessment
Renal Function: Appears similar to baseline
Maximum Temperature: 102.3 - 01/18/24 19:32
Concomitant Antimicrobials: piperacillin/tazobactam
AUC Dosing Plan
- Dosing Variables
Dosing Weight (kg): 52.2
Dosing CrCl (ml/min): 0.7
- Empiric Dosing
Initial / Loading Dose: 1000 mg - given ~ 0000 01/19/24
Maintenance Regimen: 1000 mg q24h - to start 1200 today, then daily at 0600
Estimated AUC (mcg*h/mL): 511
Estimated Peak (mcg*h/mL): 37.3
Estimated Trough (mcg/ml): 10.5
Estimated Half Life (H): 12.6
- Monitoring
No levels ordered at this time: consider levels after 4th dose
Pharmacokinetics Vancomycin I
- -
Patient Age: 83
Patient Sex: Male
Vancomycin Day #: 1
Indication: Other
Requesting Provider: Binta Garcia
Height / Weight:
Height 5 ft 3 in
Actual Weight 52.2 kg
Pertinent Past Medical History: augmentin ordered 01/10 - unclear reason and never given
- Vital Signs / Lab Results
Temp Pulse Resp BP Pulse Ox
98.4 F 87 14 125/78 96
01/19/24 07:13 01/19/24 07:15 01/19/24 07:15 01/19/24 07:15 01/19/24 07:15
Lab Results - Hematology
01/18/24 01/19/24
19:46 03:58
WBC 12.0 H 14.3 H
Lab Results - Chemistry
01/18/24 01/19/24
19:46 03:58
BUN 18 H 13
Creatinine 0.6 0.4 L
Estimated Creat Clear 61 61
Albumin 4.3 3.2 L
01/18/24 01/18/24
19:46 23:45
Lactic Acid 1.1 Cancelled
Lab Results - Urine
01/18/24
21:44
Urine Nitrite (Reflex) Negative
Leukocyte Esterase Rfl Trace A
Urine WBC (Reflex) 6-10
Ur Squamous Epith Cells 11-15
Urine Bacteria (Reflex) Few A
Microbiology Results
01/18/24 23:09 Influenza Types A & B (MARCY) - Final
Nasal Swab Negative for Influenza A & B, NAAT
Negative results must be combined with clinical observations
and patient history.
Nucleic Acid Amplification test (NAAT)performed on the
[employer] platform.
[2024-01-19] MEDS: CRESTOR 10 MG PO (08:13)
[2024-01-19] MEDS: ZOFRAN ODT (ORALLY DISINTEGRATING) 4 MG PO (08:13)
--- NOTE | 2024-01-19 08:27 | PTCARENOTE ---
0700 patient in bed. AAO x3, Forgetful. VSS; PX 100%/2L , RA 96%. SR, Heart Murmur Auscultated; Lungs diminished. Incontinent of urine. Purwick in place draining clear yellow urine . denies nausea. pt on low cholesterol diet. chronic generalized
pain due to rheumatic authorities . pt on scheduled oxy and tylenol prn
--- NOTE | 2024-01-19 10:38 | PTCARENOTE ---
Patient received from day shift RN. Patient presents as assessed. Patient is alert and oriented, but forgetful. NSR on chief operator lock tender. Patient assisted OOB to chair, offers no complaints at this time.
[2024-01-19] MEDS: VANCOCIN 200 IV (11:12)
--- NOTE | 2024-01-19 13:06 | CM ---
CM following re: discharge planning.
Reviewed pt's chart, met with pt.
Pt is an 83 year old female, admitted with primary dx of Septic shock unclear source possible bacteremia.
Pt reports she lives with in an apartment at [facility], has supportive son, oldest son . Emotional support offered and provided. Pt reports she ambulates with a walker at baseline, known to Rosaline WOOD, no SNF history. Pt
expressed her desire to return back to her living arrangements at [facility] with [facility] home care.
PCP: [facility]
Pharmacy: [facility]
D/C plan: per pt's request, home with [facility] and family support.
CM will follow with discharge plan updates as hospitalization progresses
[2024-01-19] MEDS: LIDOCAINE 4% PATCH 1 PATCH TOPICAL (13:49)
--- NOTE | 2024-01-19 15:15 | W.PN.HOSP.TC ---
Today's Communication/Plan
-
mrsa swab
cont abx
f/u cultures
dg
Assessment / Plan
Assessment / Plan
Physical Exam
General: Comfortable, Conversant, Fever, Chills and Other (Lethargic)
HEENT: NormoCephalic, Anicteric, PERRLA and Other (Dry oral mucosa)
Respiratory: Clear; No Wheezes, Rales or Rhonchi
Cardiac: S1/S2, Tachycardia (Sinus) and Murmur (Holosystolic /6); No Peripheral Edema
Breast: Deferred by me
GI: Soft, Non Tender, Non Distended, Normal Bowel Sounds and No Hepatosplenomegaly
Rectal: Deferred by Provider
Genito-urinary: Deferred by me
Musculoskeletal: No Clubbing, No Cyanosis and No Edema
Skin: Warm and Dry; No Rash
Neuro: Awake, Alert, Oriented (To name, place of living [facility], [facility]), No Motor Deficits, Nonfocal/grossly intact and No Sensory Deficits; No Slurred Speech, Facial Droop, Tremors or Sedated
Psych: Calm
#SIRS with Probable Infectious Etiology
-f/u cultures
-empiric abx
-covid, flu negative
-f/u mrsa swab
-apparently was on empiric abx therapy for possible tooth infection? - although no evidence of infection in the oral orifice upon my examination
#Mild�moderate dementia
-Oriented to first and last name, place of [facility], 's name and some of medical history
#Chronic right shoulder pain on chronic oral opiates
#Rheumatoid arthritis with deformities to hands and feet
#Chronic ambulatory dysfunction uses walker at baseline
Continue oxycodone 10 mg every 6 hours with Colace 100 mg every 48 H and as needed MiraLAX for constipation
-May continue Salonpas to shoulder
#Chronic RBBB
#Chronic moderate aortic stenosis peak mean gradient 42 mmHg / 25 mmHg
#Chronic anemia-normocytic
Hgb 10.1 appears baseline
#TIA versus polypharmacy October 2023
Had negative brain MRI
-Was started on aspirin 81 mg, Plavix 75 mg 21 days and to continue home Crestor A1c was 5.5
#HTN with history of uncontrolled HTN
-Continue metoprolol succinate 25 mg at bedtime
-Continue lisinopril 10 mg twice daily
#GERD
Continue Protonix 40 mg daily
#Anxiety
-Continue Zoloft 25 mg at bedtime
#Insomnia
-Hold mirtazapine for sedation
DVT prophylaxis
Subcu Lovenox
Full code per patient and chart from [facility]
Anticipated Discharge: 24 - 48 hours
Subjective/Interval History
-
Date of Service: January 19, 2024
sitting in chair, resting comfortable. AAOx2-3
Objective Data
-
Labs:
Laboratory Results
01/19/24
03:58
WBC 14.3 H
Hgb 8.7 L
Hct 25.9 L
Plt Count 313
Sodium 135
Potassium 4.2
Chloride 105
Carbon Dioxide 24
BUN 13
Creatinine 0.4 L
Glucose 105 H
Calcium 9.3
Total Bilirubin 0.5
AST 21
ALT < 10
Alkaline Phosphatase 35 L
Vital Signs:
Vital Signs
Temp Pulse Resp BP Pulse Ox
98 F 86 11 103/56 87
01/19/24 11:10 01/19/24 13:00 01/19/24 13:00 01/19/24 13:00 01/19/24 13:00
I&O
01/18/24 01/19/24 01/20/24
06:59 06:59 06:59
Intake Total 400 / 400
Output Total 650 / 650
Balance -250 / -250
Review of Systems
-
History Source: Patient
All other systems: Not reviewed unless documented
Data Reviewed
-
Diagnostic Radiology: Image personally visualized and interpreted and Report Reviewed by me
Labs: Labs Reviewed by me
[2024-01-19] MEDS: LOVENOX 40 MG SC (17:12)
[2024-01-19] MEDS: ZOLOFT 25 MG PO (21:11)
[2024-01-19] MEDS: TYLENOL 650 MG PO (21:12)
[2024-01-20] VITALS (18 sets, daily range): BP systolic 104–164; BP diastolic 56–90; BMI 20.5
[2024-01-20] MEDS: ROXICODONE 10 MG PO ×5 (00:07→23:01)
[2024-01-20] MEDS: ZOSYN 50 IV (03:29)
[2024-01-20 03:52] LABS: % Basophils 0.6 % (0-2); % Eosinophils 4.3 % (0-6); % Immature Granulocytes 0.4 % (0-0.5); % Monocytes 7.8 % (1.7-9.3); % Neutrophils 70.9 % (42.2-75.2); Absolute Eosinophils 0.2 10^3/uL (0-0.7); Absolute Lymphocytes 0.9 10^3/uL (1.2-3.4); Absolute Monocytes 0.4 10^3/uL (0.1-0.6); Absolute Neutrophils 3.8 10^3/uL (1.4-6.5); Hematocrit 20.7 % (37.0-47.0); Mean Corp Hgb Conc. 33.8 g/dL (33.0-37.0); Mean Corpuscular Volume 88.8 fL (81.0-99.0); Mean Platelet Volume 8.8 fL (7.4-10.4); Nucleated Red Blood Cells % 0 %; Platelet Count 180 10^3/uL (130-400); Red Blood Cell Count 2.33 10^6/uL (4.20-5.40); Red Cell Dist. Width 12.8 % (11.5-14.5); White Blood Cell Count 5.4 10^3/uL (4.8-10.8)
[2024-01-20 04:13] LABS: ALT (SGPT) < 10 U/L (0-35); AST (SGOT) 15 U/L (14-36); Albumin 2.2 g/dl (3.5-5.0); Alkaline Phosphatase 29 U/L (38-126); Blood Urea Nitrogen 9 mg/dl (7-17); Calcium 7.5 mg/dl (8.4-10.2); Carbon Dioxide 22 mmol/L (22-30); Chloride 112 mmol/L (98-107); Estimated Creatinine Clearance 61 ml/min; Glucose 78 mg/dl (70-99); Potassium 3.1 mmol/L (3.5-5.1); Sodium 137 mmol/L (135-145); Total Bilirubin 0.2 mg/dl (0.2-1.3); Total Protein 4.5 g/dl (6.3-8.2); eGFR > 60.00
[2024-01-20 04:29] LABS: % Basophils 0.8 % (0-2); % Eosinophils 3.8 % (0-6); % Immature Granulocytes 0.2 % (0-0.5); % Lymphocytes 16.4 % (20.5-51.1); % Monocytes 8.1 % (1.7-9.3); % Neutrophils 70.7 % (42.2-75.2); Absolute Basophils 0.1 10^3/uL (0-0.2); Absolute Eosinophils 0.3 10^3/uL (0-0.7); Absolute Lymphocytes 1.1 10^3/uL (1.2-3.4); Absolute Monocytes 0.5 10^3/uL (0.1-0.6); Absolute Neutrophils 4.6 10^3/uL (1.4-6.5); Hematocrit 24.9 % (37.0-47.0); Mean Corp Hgb Conc. 32.1 g/dL (33.0-37.0); Mean Corpuscular Hgb 28.5 pg (27.0-31.0); Mean Corpuscular Volume 88.6 fL (81.0-99.0); Mean Platelet Volume 8.9 fL (7.4-10.4); Nucleated Red Blood Cells % 0 %; Platelet Count 222 10^3/uL (130-400); Red Blood Cell Count 2.81 10^6/uL (4.20-5.40); Red Cell Dist. Width 12.7 % (11.5-14.5); White Blood Cell Count 6.5 10^3/uL (4.8-10.8)
[2024-01-20] MEDS: NSS 1000 IV (05:16)
[2024-01-20] MEDS: VANCOCIN 200 IV (05:17)
--- NOTE | 2024-01-20 05:46 | PTCARENOTE ---
pt alert and orientated. ringing call winston appropriately. oob with one assist and the rolling walker. c/o chronic neck pain overnight requested prn tylenol. pt asleep shortly after. RA throughout the night.
[2024-01-20] MEDS: TYLENOL 650 MG PO ×2 (06:06→19:51)
--- NOTE | 2024-01-20 08:17 | PHA.VAN.FU ---
Vancomycin Assessment / Plan
- Assessment
Renal Function: Stable
WBC's are: Stable
In the past 24 hrs, patient has been: Afebrile
Concomitant Antimicrobials: Pip-tazo
- Dosing Plan
Continue: Vanc 1000mg IV q24h
- Monitoring Plan
Peak Level: 01/20 at 0830
Trough Level: 01/21 at 0530
- Follow Up
Pharmacy will continue to follow.
Vancomycin Follow UP
- -
Patient Age: 83
Patient Sex: Male
Vancomycin Day #: 2
Indication: Other
Requesting Provider: Binta Garcia
Height / Weight:
Height 5 ft 3 in
Actual Weight 52.5 kg
Pertinent Past Medical History: augmentin ordered 01/10 - unclear reason and never given
- Vital Signs / Lab Results
Temp Pulse Resp BP Pulse Ox
98.0 F 88 11 149/70 96
01/20/24 08:05 01/20/24 06:00 01/20/24 06:00 01/20/24 06:00 01/20/24 06:00
Lab Results - Hematology
01/18/24 01/19/24 01/20/24
19:46 03:58 03:29
WBC 12.0 H 14.3 H 5.4
01/20/24
04:09
WBC 6.5
Lab Results - Chemistry
01/18/24 01/19/24 01/20/24
19:46 03:58 03:29
BUN 18 H 13 9
Creatinine 0.6 0.4 L 0.4 L
Estimated Creat Clear 61 61 61
Albumin 4.3 3.2 L 2.2 L
01/18/24 01/18/24
19:46 23:45
Lactic Acid 1.1 Cancelled
Microbiology Results
01/19/24 01:43 MRSA Screen - Final
Nose No Methicillin Resistant Staphylococcus aureus isolated.
01/18/24 19:46 Blood Culture - Preliminary
Blood/Venous No Growth in 24 hours- Final report to follow
01/18/24 23:09 Influenza Types A & B (MARCY) - Final
Nasal Swab Negative for Influenza A & B, NAAT
Negative results must be combined with clinical observations
and patient history.
Nucleic Acid Amplification test (NAAT)performed on the
[employer] platform.
[2024-01-20] MEDS: LOW STRENGTH ASPIRIN 81 MG PO (08:23)
[2024-01-20] MEDS: LIDOCAINE 4% PATCH 1 PATCH TOPICAL (08:24)
[2024-01-20] MEDS: ZOFRAN ODT (ORALLY DISINTEGRATING) 4 MG PO (08:24)
[2024-01-20] MEDS: PROTONIX 40 MG PO (08:24)
--- NOTE | 2024-01-20 08:54 | PTCARENOTE ---
Updated assessment, vital signs ongoing and as documented. Update with patient, family via phone as per her request. Breakfast at this with assist. Continue to follow up plan of cares. Await hospitalist team follow up medications and plan of cares.
[2024-01-20] MEDS: KCL ELIXIR 40 MEQ PO (10:16)
[2024-01-20] MEDS: STERILE WATER FOR INJECTION 10 ML IV (10:16)
[2024-01-20] MEDS: ROCEPHIN 1000 MG IV (10:16)
[2024-01-20] MEDS: CRESTOR 10 MG PO (10:16)
--- NOTE | 2024-01-20 11:48 | PTCARENOTE ---
Hospitalist at bedside with patient updated plan of cares. Vital signs and assessment follow up unchanged. Await transfer orders. Continue with rounds.
[2024-01-20] MEDS: KCL ELIXIR PO (12:20)
--- NOTE | 2024-01-20 13:59 | W.PN.HOSP.TC ---
Today's Communication/Plan
-
f/u cultures
cont empiric abx
dc fluids
resume antihypertensives
Assessment / Plan
Assessment / Plan
Physical Exam
General: Comfortable, Conversant, Fever, Chills and Other (Lethargic)
HEENT: NormoCephalic, Anicteric, PERRLA and Other (Dry oral mucosa)
Respiratory: Clear; No Wheezes, Rales or Rhonchi
Cardiac: S1/S2, Tachycardia (Sinus) and Murmur (Holosystolic /6); No Peripheral Edema
Breast: Deferred by me
GI: Soft, Non Tender, Non Distended, Normal Bowel Sounds and No Hepatosplenomegaly
Rectal: Deferred by Provider
Genito-urinary: Deferred by me
Musculoskeletal: No Clubbing, No Cyanosis and No Edema
Skin: Warm and Dry; No Rash
Neuro: Awake, Alert, Oriented (To name, place of living [facility], [facility]), No Motor Deficits, Nonfocal/grossly intact and No Sensory Deficits; No Slurred Speech, Facial Droop, Tremors or Sedated
Psych: Calm
#SIRS with Probable Infectious Etiology
-f/u cultures
-empiric abx
-covid, flu negative
-f/u mrsa swab negative, discontinue vancomycin
-apparently was on empiric abx therapy for possible tooth infection? - although no evidence of infection in the oral orifice upon my examination
#Mild�moderate dementia
-Oriented to first and last name, place of [facility], 's name and some of medical history
#Chronic right shoulder pain on chronic oral opiates
#Rheumatoid arthritis with deformities to hands and feet
#Chronic ambulatory dysfunction uses walker at baseline
Continue oxycodone 10 mg every 6 hours with Colace 100 mg every 48 H and as needed MiraLAX for constipation
-May continue Salonpas to shoulder
#Hypokalemia
� Monitor and replete
#Chronic RBBB
#Chronic moderate aortic stenosis peak mean gradient 42 mmHg / 25 mmHg
#Chronic anemia-normocytic
Hgb 10.1 appears baseline
#TIA versus polypharmacy October 2023
Had negative brain MRI
-Was started on aspirin 81 mg, Plavix 75 mg 21 days and to continue home Crestor A1c was 5.5
#HTN with history of uncontrolled HTN
-Continue metoprolol succinate 25 mg at bedtime
-Continue lisinopril 10 mg twice daily
#GERD
Continue Protonix 40 mg daily
#Anxiety
-Continue Zoloft 25 mg at bedtime
#Insomnia
-Hold mirtazapine for sedation
DVT prophylaxis
Subcu Lovenox
Full code per patient and chart from [facility]
Anticipated Discharge: 24 - 48 hours
Subjective/Interval History
-
Date of Service: January 20, 2024
Hemodynamically stable
Objective Data
-
Labs:
Laboratory Results
01/20/24 01/20/24
03:29 04:09
WBC 5.4 6.5
Hgb 7.0 L 8.0 L
Hct 20.7 L* 24.9 L
Plt Count 180 D 222 D
Sodium 137
Potassium 3.1 L D
Chloride 112 H
Carbon Dioxide 22
BUN 9
Creatinine 0.4 L
Glucose 78
Calcium 7.5 L D
Total Bilirubin 0.2
AST 15
ALT < 10
Alkaline Phosphatase 29 L
Vital Signs:
Vital Signs
Temp Pulse Resp BP Pulse Ox
98.7 F 91 20 164/90 98
01/20/24 11:46 01/20/24 13:31 01/20/24 13:31 01/20/24 13:31 01/20/24 13:31
I&O
01/19/24 01/20/24 01/21/24
06:59 06:59 06:59
Intake Total 2880 / 2880 480 / 480
Output Total 650 / 650
Balance 2230 / 2230 480 / 480
Review of Systems
-
History Source: Patient
All other systems: Not reviewed unless documented
Data Reviewed
-
Diagnostic Radiology: Image personally visualized and interpreted and Report Reviewed by me
Labs: Labs Reviewed by me
[2024-01-20] MEDS: ZESTRIL 10 MG PO (14:25)
--- NOTE | 2024-01-20 14:32 | PTCARENOTE ---
Patient assessment unchanged. In and out of bed to chair. Ambulate to Bathroom with rolling walker assist. Left shoulder pain much improved with medication and warm blanket. Continue to follow up with hospitalist and cares team. Call winston in reach
and in use as needed.
--- NOTE | 2024-01-20 15:19 | PTCARENOTE ---
Updated patient and familly of transfer to [facility](1). Follow up with [facility] team and prep for transfer.
--- NOTE | 2024-01-20 15:56 | PTCARENOTE ---
rec'd pt from ICU via wheelchair. Pt walked to chair. Only complaint of pain is her chronic shoulder pain. Will get scheduled Oxycodone at 1800. oriented to unit and call winston in reach.
[2024-01-20] MEDS: LOVENOX 40 MG SC (18:19)
[2024-01-20] MEDS: ZOLOFT 25 MG PO (22:02)
[2024-01-20] MEDS: REMERON 7.5 MG PO (22:03)
[2024-01-20] MEDS: TOPROL XL 25 MG PO (22:03)
[2024-01-20] MEDS: MELATONIN 5 MG PO (23:45)
[2024-01-21] MEDS: ROXICODONE 10 MG PO ×4 (05:58→23:26)
[2024-01-21 06:00] VITALS: BMI 19.9
[2024-01-21 07:00] VITALS: BP 137/70
[2024-01-21 07:57] VITALS: BP 137/70
[2024-01-21] MEDS: PROTONIX 40 MG PO (08:20)
[2024-01-21] MEDS: ZOFRAN ODT (ORALLY DISINTEGRATING) 4 MG PO (08:20)
[2024-01-21] MEDS: COLACE 100 MG PO (08:20)
[2024-01-21] MEDS: LOW STRENGTH ASPIRIN 81 MG PO (08:20)
[2024-01-21] MEDS: LIDOCAINE 4% PATCH 1 PATCH TOPICAL (08:21)
[2024-01-21] MEDS: CRESTOR 10 MG PO (08:28)
[2024-01-21 08:34] LABS: % Basophils 0.7 % (0-2); % Eosinophils 5.8 % (0-6); % Immature Granulocytes 0.2 % (0-0.5); % Lymphocytes 20.2 % (20.5-51.1); % Monocytes 8.9 % (1.7-9.3); % Neutrophils 64.2 % (42.2-75.2); Absolute Eosinophils 0.3 10^3/uL (0-0.7); Absolute Lymphocytes 1.2 10^3/uL (1.2-3.4); Absolute Monocytes 0.5 10^3/uL (0.1-0.6); Absolute Neutrophils 3.8 10^3/uL (1.4-6.5); Hematocrit 27.8 % (37.0-47.0); Hemoglobin 9.1 g/dL (12.0-16.0); Mean Corp Hgb Conc. 32.7 g/dL (33.0-37.0); Mean Corpuscular Hgb 28.8 pg (27.0-31.0); Mean Platelet Volume 9.1 fL (7.4-10.4); Nucleated Red Blood Cells % 0 %; Platelet Count 275 10^3/uL (130-400); Red Blood Cell Count 3.16 10^6/uL (4.20-5.40); Red Cell Dist. Width 12.6 % (11.5-14.5); White Blood Cell Count 5.9 10^3/uL (4.8-10.8)
[2024-01-21 08:56] LABS: ALT (SGPT) < 10 U/L (0-35); AST (SGOT) 21 U/L (14-36); Albumin 3.2 g/dl (3.5-5.0); Alkaline Phosphatase 35 U/L (38-126); Blood Urea Nitrogen 6 mg/dl (7-17); Calcium 9.8 mg/dl (8.4-10.2); Carbon Dioxide 30 mmol/L (22-30); Chloride 101 mmol/L (98-107); Estimated Creatinine Clearance 59 ml/min; Glucose 82 mg/dl (70-99); Potassium 4.2 mmol/L (3.5-5.1); Sodium 136 mmol/L (135-145); Total Bilirubin 0.2 mg/dl (0.2-1.3); Total Protein 5.9 g/dl (6.3-8.2); eGFR > 60.00
[2024-01-21] MEDS: ROCEPHIN 1000 MG IV (10:15)
[2024-01-21] MEDS: STERILE WATER FOR INJECTION 10 ML IV (10:16)
[2024-01-21] MEDS: MIRALAX 17 GRAMS PO (11:07)
--- NOTE | 2024-01-21 12:18 | W.PN.HOSP.TC ---
Today's Communication/Plan
-
cont empiric abx
pending SNF placement
Assessment / Plan
Assessment / Plan
Physical Exam
General: Comfortable, Conversant, Fever, Chills and Other (Lethargic)
HEENT: NormoCephalic, Anicteric, PERRLA and Other (Dry oral mucosa)
Respiratory: Clear; No Wheezes, Rales or Rhonchi
Cardiac: S1/S2, Tachycardia (Sinus) and Murmur (Holosystolic /); No Peripheral Edema
Breast: Deferred by me
GI: Soft, Non Tender, Non Distended, Normal Bowel Sounds and No Hepatosplenomegaly
Rectal: Deferred by Provider
Genito-urinary: Deferred by me
Musculoskeletal: No Clubbing, No Cyanosis and No Edema
Skin: Warm and Dry; No Rash
Neuro: Awake, Alert, Oriented (To name, place of living [facility], [place]), No Motor Deficits, Nonfocal/grossly intact and No Sensory Deficits; No Slurred Speech, Facial Droop, Tremors or Sedated
Psych: Calm
#SIRS with Probable Infectious Etiology
-cultures negative
-will complete 5 day course of abx;
-covid, flu negative
-f/u mrsa swab negative, discontinue vancomycin
-apparently was on empiric abx therapy for possible tooth infection? - although no evidence of infection in the oral orifice upon my examination
#Mild�moderate dementia
-Oriented to first and last name, [facility], 's name and some of medical history
#Chronic right shoulder pain on chronic oral opiates
#Rheumatoid arthritis with deformities to hands and feet
#Chronic ambulatory dysfunction uses walker at baseline
Continue oxycodone 10 mg every 6 hours with Colace 100 mg every 48 H and as needed MiraLAX for constipation
-May continue Salonpas to shoulder
#Hypokalemia
� Monitor and replete
#Chronic RBBB
#Chronic moderate aortic stenosis peak mean gradient 42 mmHg / 25 mmHg
#Chronic anemia-normocytic
Hgb 10.1 appears baseline
#TIA versus polypharmacy October 2023
Had negative brain MRI
-Was started on aspirin 81 mg, Plavix 75 mg 21 days and to continue home Crestor A1c was 5.5
#HTN with history of uncontrolled HTN
-Continue metoprolol succinate 25 mg at bedtime
-Continue lisinopril 10 mg twice daily
#GERD
Continue Protonix 40 mg daily
#Anxiety
-Continue Zoloft 25 mg at bedtime
#Insomnia
-Hold mirtazapine for sedation
DVT prophylaxis
Subcu Lovenox
Full code per patient and chart from [facility]
DC ready: Pending SNF placement
Anticipated Discharge: Within 24 hours
Subjective/Interval History
-
Date of Service: January 21, 2024
no acute events
Objective Data
-
Labs:
Laboratory Results
01/21/24
06:50
WBC 5.9
Hgb 9.1 L
Hct 27.8 L
Plt Count 275 D
Sodium 136
Potassium 4.2 D
Chloride 101
Carbon Dioxide 30
BUN 6 L
Creatinine 0.5 L
Glucose 82
Calcium 9.8 D
Total Bilirubin 0.2
AST 21
ALT < 10
Alkaline Phosphatase 35 L
Vital Signs:
Vital Signs
Temp Pulse Resp BP Pulse Ox
97.8 F 78 18 137/70 98
01/21/24 07:00 01/21/24 07:00 01/21/24 07:00 01/21/24 07:00 01/21/24 07:00
I&O
01/20/24 01/21/24 01/22/24
06:59 06:59 06:59
Intake Total 2880 / 2880 960 / 960
Output Total 650 / 650
Balance 223 / 2230 960 / 960
Review of Systems
-
History Source: Patient
All other systems: Not reviewed unless documented
Data Reviewed
-
Diagnostic Radiology: Image personally visualized and interpreted and Report Reviewed by me
Labs: Labs Reviewed by me
[2024-01-21 15:00] VITALS: BP 149/76
--- NOTE | 2024-01-21 15:47 | CM ---
Addendum entered by Mercedes Alvarado 01/21/24 15:53:
Still no answer from [facility] plan is for patient to return to [facility] with [facility] [phone]

[facility].

Original Note:
Patient is anxious to leave, physical therapy are recommending skilled placement, patient resides with her spouse in assisted living, message left for Sally in admissions at assisted Living to see if they could accept patient back today.
Plan; Back to [facility] with spouse and visiting nurses when stable.
[2024-01-21 15:51] VITALS: BP 149/88; PULSE 81; O2SAT 99
[2024-01-21] MEDS: LOVENOX 40 MG SC (17:56)
[2024-01-21] MEDS: TOPROL XL 25 MG PO (21:29)
[2024-01-21] MEDS: MELATONIN 5 MG PO (21:29)
[2024-01-21] MEDS: ZOLOFT 25 MG PO (21:29)
[2024-01-21] MEDS: TYLENOL 1000 MG PO (21:29)
[2024-01-21] MEDS: ROXICODONE 5 MG PO (21:29)
[2024-01-21] MEDS: REMERON 7.5 MG PO (21:30)
[2024-01-22 00:47] VITALS: BP 123/71
[2024-01-22] MEDS: ROXICODONE 10 MG PO ×2 (05:13→11:09)
[2024-01-22 06:00] VITALS: BMI 19.9
[2024-01-22 06:40] LABS: % Basophils 0.6 % (0-2); % Eosinophils 3.4 % (0-6); % Immature Granulocytes 0.4 % (0-0.5); % Lymphocytes 12.4 % (20.5-51.1); % Monocytes 9.3 % (1.7-9.3); % Neutrophils 73.9 % (42.2-75.2); Absolute Basophils 0.1 10^3/uL (0-0.2); Absolute Eosinophils 0.3 10^3/uL (0-0.7); Absolute Monocytes 0.8 10^3/uL (0.1-0.6); Hematocrit 27.3 % (37.0-47.0); Mean Corpuscular Hgb 28.9 pg (27.0-31.0); Mean Corpuscular Volume 87.8 fL (81.0-99.0); Mean Platelet Volume 9.1 fL (7.4-10.4); Nucleated Red Blood Cells % 0 %; Platelet Count 304 10^3/uL (130-400); Red Blood Cell Count 3.11 10^6/uL (4.20-5.40); Red Cell Dist. Width 12.6 % (11.5-14.5); White Blood Cell Count 8.2 10^3/uL (4.8-10.8)
[2024-01-22 06:43] LABS: ALT (SGPT) < 10 U/L (0-35); AST (SGOT) 21 U/L (14-36); Albumin 3.4 g/dl (3.5-5.0); Alkaline Phosphatase 37 U/L (38-126); Blood Urea Nitrogen 12 mg/dl (7-17); Calcium 9.7 mg/dl (8.4-10.2); Carbon Dioxide 31 mmol/L (22-30); Chloride 99 mmol/L (98-107); Estimated Creatinine Clearance 59 ml/min; Glucose 86 mg/dl (70-99); Potassium 3.9 mmol/L (3.5-5.1); Sodium 135 mmol/L (135-145); Total Bilirubin 0.3 mg/dl (0.2-1.3); eGFR > 60.00
[2024-01-22 07:30] VITALS: BP 134/73
[2024-01-22] MEDS: PROTONIX 40 MG PO (07:54)
[2024-01-22] MEDS: CRESTOR 10 MG PO (07:54)
[2024-01-22] MEDS: ZOFRAN ODT (ORALLY DISINTEGRATING) 4 MG PO (07:55)
[2024-01-22] MEDS: LIDOCAINE 4% PATCH 1 PATCH TOPICAL (07:55)
[2024-01-22] MEDS: LOW STRENGTH ASPIRIN 81 MG PO (07:55)
[2024-01-22] MEDS: TYLENOL 650 MG PO (08:01)
[2024-01-22] MEDS: ROCEPHIN 1000 MG IV (09:37)
[2024-01-22] MEDS: STERILE WATER FOR INJECTION 10 ML IV (09:37)
--- NOTE | 2024-01-22 09:47 | W.PN.HOSP.TC ---
Addendum entered and electronically signed by Yamilet Delgado MD 01/23/24 12:11:
# Opioid use with dependence
Addendum entered and electronically signed by Yamilet Delgado MD 01/22/24 14:49:
total DC time 36 min
Addendum entered and electronically signed by Yamilet Delgado MD 01/22/24 14:17:
# SIRS, unclear sepsis or not. No clear cause of infectious etiology
Original Note:
Today's Communication/Plan
-
see A/P
Assessment / Plan
Assessment / Plan
Physical Exam
General: Comfortable, Conversant, Fever, Chills and Other (Lethargic)
HEENT: NormoCephalic, Anicteric, PERRLA and Other (Dry oral mucosa)
Respiratory: Clear; No Wheezes, Rales or Rhonchi
Cardiac: S1/S2, Tachycardia (Sinus) and Murmur (Holosystolic 4/6); No Peripheral Edema
Breast: Deferred by me
GI: Soft, Non Tender, Non Distended, Normal Bowel Sounds and No Hepatosplenomegaly
Rectal: Deferred by Provider
Genito-urinary: Deferred by me
Musculoskeletal: No Clubbing, No Cyanosis and No Edema
Skin: Warm and Dry; No Rash
Neuro: Awake, Alert, Oriented (To name, place of living [facility], [place]), No Motor Deficits, Nonfocal/grossly intact and No Sensory Deficits; No Slurred Speech, Facial Droop, Tremors or Sedated
Psych: Calm
A/P:
# SIRS with Probable Infectious Etiology
Blood culture negative, covid, flu negative, MRSA screen neg
Started empiric ceftriaxone, Plan to complete 5 days abx;
apparently was on empiric abx therapy for possible tooth infection? although no evidence of infection in the oral orifice upon examination
# Mild�moderate dementia
Oriented to first and last name, place of living [facility], 's name and some of medical history
# Chronic right shoulder pain on chronic oral opiates
# Rheumatoid arthritis with deformities to hands and feet
# Chronic ambulatory dysfunction uses walker at baseline
Continue oxycodone 10 mg every 6 hours with Colace 100 mg every 48 H and as needed MiraLAX for constipation
May continue Salonpas to shoulder
# Hypokalemia
repleted
# Chronic RBBB
# Chronic moderate aortic stenosis peak mean gradient 42 mmHg / 25 mmHg
# Chronic anemia-normocytic
Hgb 10.1 appears baseline
# TIA versus polypharmacy October 2023
Had negative brain MRI
Was started on aspirin 81 mg, s/p Plavix 75 mg 21 days
continue home Crestor
A1c was 5.5
# HTN with history of uncontrolled HTN
Continue metoprolol succinate 25 mg at bedtime
Continue lisinopril 10 mg twice daily
# GERD
Continue Protonix 40 mg daily
# Anxiety
Continue Zoloft 25 mg at bedtime
# Insomnia
Hold mirtazapine due to sedation
DVT prophylaxis: Subcu Lovenox
Full code per patient and chart from [facility]
DC ready: Pending SNF placement
DW CM
Anticipated Discharge: Within 24 hours
Subjective/Interval History
-
Date of Service: January 22, 2024
Objective Data
-
Labs:
Laboratory Results
01/22/24
05:10
WBC 8.2
Hgb 9.0 L
Hct 27.3 L
Plt Count 304
Sodium 135
Potassium 3.9
Chloride 99
Carbon Dioxide 31 H
BUN 12
Creatinine 0.5 L
Glucose 86
Calcium 9.7
Total Bilirubin 0.3
AST 21
ALT < 10
Alkaline Phosphatase 37 L
Vital Signs:
Vital Signs
Temp Pulse Resp BP Pulse Ox
36.7 C 82 17 134/73 93
01/22/24 07:30 01/22/24 07:30 01/22/24 07:30 01/22/24 07:30 01/22/24 07:30
I&O
01/21/24 01/22/24 01/23/24
06:59 06:59 06:59
Intake Total 960 / 960 1080 / 1080
Balance 960 / 960 1080 / 1080
Review of Systems
-
All other systems: Reviewed and negative
Data Reviewed
-
Diagnostic Radiology: Image personally visualized and interpreted and Report Reviewed by me
Labs: Labs Reviewed by me
--- NOTE | 2024-01-22 10:38 | CM ---
CM spoke with Hannah ([phone]), correspondence analyst nursing cab supervisor for [facility], reports Sally is on vacation. MILADYS reports patient is clear for discharge to return with [facility]. Hannah requesting call from nurse to review any changes to meds prior to
discharge.
Patient seen bedside, patient eager to return home, agreeable to VN through [facility]. Patient spoke with son while CM present, son will transport patient home around 1:30 p.m. IMM reviewed, signed, placed in chart, patient provided with copy. CM will
continue to follow for all discharge plannine needs.
Plan; return to [facility] with [facility], son to provide transport home.
[facility]: please call reports to [phone]

[facility].
--- NOTE | 2024-01-22 13:05 | PN.CDI ---
CDI
- -
CDI:
Physician Documentation Request
Admit Date: 01/18/24 23:34
Dear Doctor Sandy,
Please review the following and provide your response in the progress notes.
Clinical Indicators:
- per H&P 'Septic shock unclear source possible bacteremia'
- hypotension 87/63...persistent 93/51'
- 4L IVF given
- per Update note 'Sepsis unknown source'
- 01/21 PN 'SIRS with Probable Infectious Etiology'
- 'was on empiric abx therapy for possible tooth infection?'
- 'Started empiric ceftriaxone, Plan to complete 5 days abx'
- On admission: WBC 12.0, Tmax 102.3, HR 120s
- procal 0.62
Please clarify which most accurately describes the patient:
Sepsis due to
Septic shock due to
SIRS due to a non-infectious source (please specify)
Other
Use of terms such as suspected, likely, concern for, or probable (associated with a specific diagnosis that is being evaluated, monitored, or treated as if it exists) are acceptable and can be coded in the inpatient setting, when documented at the
time of discharge.
Thank you,
Juan Ramon Storm RN
CDI Specialist
Please use your independent medical judgment in providing your response.
--- NOTE | 2024-01-22 14:36 | W.DCSUMMARY ---
Discharge Summary
Discharge Data
Date of Admission: 01/18/24
Date of Discharge: 01/22/24
-
Pending Results: No
Hospital Course
Principal Diagnosis:
SIRS with Probable Infectious Etiology
Chronic Diagnoses:�
Mild�moderate dementia
Chronic right shoulder pain on chronic oral opiates
Rheumatoid arthritis with deformities to hands and feet
Chronic ambulatory dysfunction uses walker at baseline
Chronic right bundle branch block
Chronic moderate aortic stenosis peak mean gradient 42 mmHg / 25 mmHg
Hypertension
Gastroesophageal reflux disease
Anxiety
Insomnia
Consultations:�
None
Procedures:�
None
Clinical course:�
This is a 83-year-old female, with past medical history as stated above, who presented with weakness, tremors and chills.
Problem 1:
SIRS with Probable Infectious Etiology.
Her blood culture was negative, COVID/Flu were negative, MRSA screen was negative.
It is unclear what the source of infection is, however, given the patient improved with empiric ceftriaxone which she received during her hospital stay, she can continue with oral cefdinir for 3 more days (total 5 days following discharge).
As for the rest of her medical problems, they were stable during her hospital stay.
Discharge Plan
-
Patient Disposition: Home (Routine Discharge)
Discharge Diagnosis/Procedures: SIRS with Probable Infectious Etiology
Condition: Fair
Diet: Low Fat, Low Cholesterol and Low Fiber
Activity: As tolerated
Driving Restrictions: As prior to admission
Blood Work: bmp in 1 week with pcp
Referrals:
Kavon Elias MD [Family Provider] - in less than 1 week
Additional Discharge Medication Instructions: Continue cefdinir for 3 more days
Prescriptions:
New
cefdinir 300 mg capsule
300 mg PO BID 3 Days Qty: 6 0RF
Continued
acetaminophen [Tylenol] 325 mg Tablet
650 mg PO Q8H@06,14,22
polyethylene glycol 3350 17 gram Powder In Packet
17 g PO DAILYPRN PRN (Reason: constipation)
pantoprazole 40 mg Tablet,Delayed Release (Dr/Ec)
40 mg PO DAILY
docusate sodium 100 mg Capsule
100 mg PO Q48H@0800
Patient Comments:
10/09/2023, next date on Monday (10/10/2023) per [place] paperwork.
sertraline 25 mg Tablet
25 mg PO HS
gzwjsrmujlt-sfdrunxwz-vck C-Mn [Glucosamine Chondroitin MaxStr] 500-400 mg Capsule
1 cap PO TID@
rosuvastatin 10 mg Tablet
10 mg PO DAILY@0900
Salonpas 3.1-10-6 % Adhesive Patch,Medicated
1 patch TOPICAL DAILY@0900
Patient Comments:
10/09/2023, on 12 hrs, off 12 hours.
metoprolol succinate 25 mg tablet extended release 24 hr
25 mg PO HS Qty: 30 0RF
aspirin [Children's Aspirin] 81 mg Tablet,Chewable
81 mg PO DAILY Qty: 30 0RF
lisinopril 10 mg Tablet
10 mg PO BID Qty: 60 0RF
bismuth subsalicylate [Pepto-Bismol] 262 mg Tablet,Chewable
2 tab PO QIDPRN PRN (Reason: upset stomach)
ondansetron 4 mg tablet,disintegrating
4 mg translingual DAILY
mirtazapine 7.5 mg tablet
7.5 mg PO HS
lidocaine 4 % Adhesive Patch,Medicated
1 patch TOPICAL DAILY
oxycodone 10 mg Tablet
10 mg PO Q6H@00,06,12,18 Qty: 3 0RF
Discontinued
amoxicillin-pot clavulanate 875-125 mg tablet
1 tab PO BID
Discharge Orders:
Discharge Patient (As Directed); Ordered 01/22/24
Ordered By: Yamilet Delgado
Discharge Date and Time
Discharge Date/Time: 01/22/24 14:09
Print Language: PALAUAN
--- NOTE | 2024-01-23 07:45 | PN.CDI ---
CDI
- -
CDI:
Physician Documentation Request
Admit Date: 01/18/24 23:34
Dear Doctor Sandy,
Please review the following and provide your response in the progress notes.
Clinical Indicators:
- 01/21 PN 'Chronic right shoulder pain on chronic oral opiates
- per 01/17 H&P home medication Oxycodone 10mg PO Q6H
- Documented Oxycodone as scheduled 10mg x14
- Additional 5mg Oxycodone x 1 given
If possible, please provide further specificity as outlined below:
Opioid use with dependence
Opioid dependence
Other
Use of terms such as suspected, likely, concern for, or probable (associated with a specific diagnosis that is being evaluated, monitored, or treated as if it exists) are acceptable and can be coded in the inpatient setting, when documented at the
time of discharge.
Thank you,
Juan Ramon Storm RN
CDI Specialist
Please use your independent medical judgment in providing your response.
== END 2024-01-22 14:09 | disposition home or self-care (01) | DRG 872 ==
LOC: 4 WEST ACU 23:34
PROVIDERS: Clinical Nurse Specialist Family Health; Emergency Medicine; Internal Medicine; ADMITTING PHYSICIAN Student in an Organized Health Care Education/Training Program; ATTENDING PHYSICIAN Internal Medicine; EMERGENCY PHYSICIAN Emergency Medicine; FAMILY PHYSICIAN Internal Medicine
DX: A41.9 Sepsis, unspecified organism (principal); F03.B3 Unspecified dementia, moderate, with mood disturbance; F11.20 Opioid dependence, uncomplicated; R65.10 Systemic inflammatory response syndrome (SIRS) of non-infectious origin without acute organ dysfunction; R00.0 Tachycardia, unspecified; I95.9 Hypotension, unspecified; I45.10 Unspecified right bundle-branch block; I10 Essential (primary) hypertension; I35.0 Nonrheumatic aortic (valve) stenosis; K21.9 Gastro-esophageal reflux disease without esophagitis; G89.29 Other chronic pain
CPT/HCPCS: 71046; 80053; 81003; 81015; 83605; 84145; 85025; 87040; 87070; 87502; 87811; 93005; 96365; 96367; 97116; 97162; 97167; 99285

== ENCOUNTER 2024-02-16 11:06 | Emergency (ER) | payer MEDICARE, SELFPAY ==
[2024-02-16 11:11] VITALS: BMI 19.2
[2024-02-16 11:18] VITALS: BP 104/59
--- NOTE | 2024-02-16 11:34 | ED.MUSCINJ ---
HPI-Injury
General
Chief Complaint: Fall
Source: patient and ambulance crew
Exam Limitations: none
Time Seen by Provider: 02/16/24 11:12
Nursing documentation reviewed up to this point in time: agreed with
History of Present Illness-Injury
Initial Injury comments:
83 yo female from [facility] states she was walking with her walker, turned corner, felt dizzy and fell. Denies LOC. Denies hitting head, denies headache. Is not anticoagulated. Has pain in the lateral aspect of her right thigh. Denies
pain elsewhere. Denies feeling dizzy at this time. Denies chest pain or SOB. Denies abdominal pain. Denies N/V/D/C. Denies urinary symptoms.
Past History
Past History
ED Past Medical History: Arrthythmia, CAD, HTN, Other (Dementia) and Other (Rheumatoid arthritis, anemia, dementia, pulmonary hypertension)
Social History
Tobacco: Non-smoker
Alcohol: None
Drug: None
Living: [facility]
Review of Systems
Review of Systems
Allergies reviewed?: Yes
All Other Systems: ROS reviewed and negative except as documented in HPI and ROS
Constitutional: Denies fever
Respiratory: Denies trouble breathing
Cardiac: Denies chest pain, palpitations or syncope
ABD/GI: Denies abdominal pain, nausea, vomiting, diarrhea or constipated
: Denies dysuria, frequency or difficulty voiding
Musculoskeletal: Reports other (pain outer right thigh); Denies edema, neck pain or back pain
Skin: Reports no symptoms
Neurological: Denies dizzy, headache, weakness or numbness
Phy Exam
Physical Exam
Physical Exam:
GENERAL: No acute distress. A&Ox3.
CONSTITUTIONAL: Afebrile.
EYES: PERRL, conjunctivae normal
Neck: Supple
ENMT: dry mucus membranes, Pharynx nl
RESPIRATORY: Regular respirations, nonlabored, lungs clear.
CARDIOVASCULAR: Regular rate and rhythm, + murmurs, no rubs.
GI: Soft, nontender, normal BS
MUSCULOSKELETAL: No spinal bony tenderness. Tender to palpate lateral aspect of upper right thigh, there is a palm sized hematoma there. Pelvic rock is negative. Distal n/v intact. Well perfused.
Deformities of hand and feet from RA
SKIN: Warm, dry, pink
PSYCH: Normal mood and affect. Well kept, interactive and appropriate
NEUROLOGIC: Awake, alert and oriented. No focal neurological deficits
Injury Course
Orders/Labs/Results
Orders:
Orders
02/16/24 11:33
Acetaminophen [Tylenol] 1,000 mg PO NOW STA
Femur, Right 2 View [CR Femur - Right Min 2 Vw] Urgent
Comment:
Reason For Exam: pain, swelling after fall.
Hip, Right 2-3 Views [CR Hip - RT w/wo Pel 2-3 Vw*] Urgent
Comment:
Reason For Exam: pain after fall
Include a pelvis x-ray?: Yes
02/16/24 11:36
Electrocardiogram (*1) Urgent
Reason for Study: Vertigo / Dizzy
02/16/24 11:37
EKG- Treatment ONCE
02/16/24 11:39
Complete Blood Count/With Diff Urgent
Comprehensive Metabolic Panel Urgent
02/16/24 12:32
0.9% Sodium Chloride 500 ml [Nss] 500 ml IV BOLUS
02/16/24 13:20
Straight cath- Treatment ONCE
02/16/24 14:02
Urinalysis Reflex To Culture Urgent
Urine Microscopic Reflex Cult Urgent
Abnormal Lab Results
02/16/24 02/16/24
11:39 14:02
RBC 3.36 L 10^6/uL
(4.20-5.40)
Hgb 9.5 L g/dL
(12.0-16.0)
Hct 29.0 L %
(37.0-47.0)
MCHC 32.8 L g/dL
(33.0-37.0)
Absolute Lymphs (auto) 1.0 L 10^3/uL
(1.2-3.4)
Lymphocytes % 13.7 L %
(20.5-51.1)
Sodium 133 L mmol/L
(135-145)
Chloride 97 L mmol/L
(98-107)
BUN 22 H mg/dl
(7-17)
Urine Ketones Trace A
(Negative)
Ur Occult Blood Reflex 2+ A
(Negative)
Urine RBC 7-10 A /HPF
(0-2)
Urine Bacteria (Reflex) Few A
(Negative)
02/16/24 11:39
02/16/24 11:39
MDM/Problems Addressed
Differential Diagnosis Includes:
Contusion vs fracture right femur/thigh
Hip fracture
Dehydration, UTI
MDM/Problems Addressed:
83 yo female from [facility] states she was walking with her walker, turned corner, felt dizzy and fell. Denies LOC. Denies hitting head, denies headache. Is not anticoagulated. Has pain in the lateral aspect of her right thigh. Denies
pain elsewhere. Denies feeling dizzy at this time. Denies chest pain or SOB. Denies abdominal pain. Denies N/V/D/C. Denies urinary symptoms.
EKG NSR Long QT no change
2:00 PM:
CBC: No clinically significant abnormality patient at her baseline anemia
CMP: No clinically significant abnormality, IV fluids ordered for mild dehydration with BUN of 22
Xray R femur: Initially read by this examiner: No acute abnormality
x-ray right hip: Initially read by this examiner, no acute abnormality
U/A neg
This examiner got pt OOB with walker and she was able to take several steps slowly, with some pain in the right thigh but was able to stand and take steps independently. She sat on edge of bed independently while getting dressed.
Spoke with Goldie RN at [facility], she states pt typically walks with walker very slowly.
Informed Goldie the patient should not get up or out of bed without assistance until evaluated by PT OT. She requested a prescription for PT OT which I will send with her
*Critical Care Note
Total Time (30-74mins, 75-104mins- exclusive of procedures): Not Applicable
ED Attending Note
-
Portions of this chart may have been created with voice recognition software.� Occasional wrong word or��sound alike� substitutions may have occurred due to the inherent limitations of voice recognition software.
Discharge Plan
Departure
Patient Disposition: [facility]/SNF
Date of Disposition: 02/16/24
Time of Disposition: 14:31
Patient with high blood pressure during this ER visit?: No
Condition: Fair
Discharge Problem:
Fall from slip, trip, or stumble, Contusion of right hip and thigh, Mild dehydration
Instructions: Contusion (DC), Preventing falls in adults, Dehydration, Adult ED
Prescriptions:
No Action
acetaminophen [Tylenol] 325 mg Tablet
650 mg PO Q8H@
polyethylene glycol 3350 17 gram Powder In Packet
17 g PO DAILYPRN PRN (Reason: constipation)
pantoprazole 40 mg Tablet,Delayed Release (Dr/Ec)
40 mg PO DAILY
docusate sodium 100 mg Capsule
100 mg PO Q48H@0800
Patient Comments:
10/09/2023, next date on Monday (10/10/2023) per [place] paperwork.
sertraline 25 mg Tablet
25 mg PO HS
mnbpvifucev-zeylbpqxg-dyy C-Mn [Glucosamine Chondroitin MaxStr] 500-400 mg Capsule
1 cap PO TID@
rosuvastatin 10 mg Tablet
10 mg PO DAILY@0900
Salonpas 3.1-10-6 % Adhesive Patch,Medicated
1 patch TOPICAL DAILY@0900
Patient Comments:
10/09/2023, on 12 hrs, off 12 hours.
metoprolol succinate 25 mg tablet extended release 24 hr
25 mg PO HS Qty: 30 0RF
aspirin [Children's Aspirin] 81 mg Tablet,Chewable
81 mg PO DAILY Qty: 30 0RF
lisinopril 10 mg Tablet
10 mg PO BID Qty: 60 0RF
bismuth subsalicylate [Pepto-Bismol] 262 mg Tablet,Chewable
2 tab PO QIDPRN PRN (Reason: upset stomach)
ondansetron 4 mg tablet,disintegrating
4 mg translingual DAILY
mirtazapine 7.5 mg tablet
7.5 mg PO HS
lidocaine 4 % Adhesive Patch,Medicated
1 patch TOPICAL DAILY
cefdinir 300 mg capsule
300 mg PO BID 3 Days Qty: 6 0RF
oxycodone 10 mg Tablet
10 mg PO Q6H@00,06,12,18 Qty: 3 0RF
Referrals:
Carmina Mckinney, [Family Provider] - Call in 1-3 days for appt
Activity Restrictions/Additional Instructions:
As we discussed, your hip and femur x-rays show nothing broken or out of place.
Tylenol 1000 mg up to 3 times a day as needed for pain.
Do not get out of bed until you are cleared by physical therapy at your facility.
I sent a prescription for physical therapy/Occupational Therapy with you to give to the facility
Interventions
Interventions:
*Risk Screen - Suicide Last Done: 02/16/24 11:13
*General Assessment Last Done: 02/16/24 11:12
*Neglect/Abuse Screening Last Done: 02/16/24 11:12
ED- Fall Risk Assessment Last Done: 02/16/24 11:13
*ED COVID-19 Vaccine History Last Done: 02/16/24 11:12
ED-Musculoskeletal Assessment Last Done: 02/16/24 11:17
ED- Neurological Assessment Last Done: 02/16/24 11:13
ED-Skin Assessment Last Done: 02/16/24 11:17
Discharge Date and Time
Print Language: LITHUANIAN
[2024-02-16] MEDS: TYLENOL 1000 MG PO (11:40)
[2024-02-16 11:55] LABS: % Basophils 0.9 % (0-2); % Eosinophils 5.4 % (0-6); % Immature Granulocytes 0.1 % (0-0.5); % Lymphocytes 13.7 % (20.5-51.1); % Monocytes 7.2 % (1.7-9.3); % Neutrophils 72.7 % (42.2-75.2); Absolute Basophils 0.1 10^3/uL (0-0.2); Absolute Eosinophils 0.4 10^3/uL (0-0.7); Absolute Monocytes 0.5 10^3/uL (0.1-0.6); Absolute Neutrophils 5.4 10^3/uL (1.4-6.5); Hemoglobin 9.5 g/dL (12.0-16.0); Mean Corp Hgb Conc. 32.8 g/dL (33.0-37.0); Mean Corpuscular Hgb 28.3 pg (27.0-31.0); Mean Corpuscular Volume 86.3 fL (81.0-99.0); Nucleated Red Blood Cells % 0 %; Platelet Count 246 10^3/uL (130-400); Red Blood Cell Count 3.36 10^6/uL (4.20-5.40); Red Cell Dist. Width 13.5 % (11.5-14.5); White Blood Cell Count 7.4 10^3/uL (4.8-10.8)
[2024-02-16 12:08] LABS: ALT (SGPT) 11 U/L (0-35); AST (SGOT) 25 U/L (14-36); Albumin 4.1 g/dl (3.5-5.0); Alkaline Phosphatase 42 U/L (38-126); Blood Urea Nitrogen 22 mg/dl (7-17); Calcium 9.9 mg/dl (8.4-10.2); Carbon Dioxide 29 mmol/L (22-30); Chloride 97 mmol/L (98-107); Estimated Creatinine Clearance 50 ml/min; Glucose 95 mg/dl (70-99); Potassium 4.7 mmol/L (3.5-5.1); Sodium 133 mmol/L (135-145); Total Bilirubin 0.3 mg/dl (0.2-1.3); Total Protein 6.6 g/dl (6.3-8.2); eGFR > 60.00
[2024-02-16] MEDS: NSS 500 IV (12:44)
[2024-02-16 14:00] VITALS: BP 126/67
[2024-02-16 14:10] LABS: Urine Albumin Negative (Neg - Trace); Urine Bilirubin Negative (Negative); Urine Character Clear (Clear); Urine Color Yellow; Urine Glucose Negative (Negative); Urine Ketone Trace (Negative); Urine Leukocyte Negative (Negative); Urine Nitrite Negative (Negative); Urine Occult Blood 2+ (Negative); Urine Specific Gravity 1.015 (<1.030); Urine Urobilinogen Negative (Neg - 1+)
[2024-02-16 14:36] LABS: Urine Squamous Cell >30 /LPF (Few)
[2024-02-16 14:44] LABS: Urine Bacteria Few (Negative)
[2024-02-16 17:57] VITALS: BP 121/63
== END 2024-02-16 18:03 ==
LOC: EMR 11:06
PROVIDERS: Registered Nurse; EMERGENCY PHYSICIAN Student in an Organized Health Care Education/Training Program; FAMILY PHYSICIAN Hospitalist
DX: S70.01XA Contusion of right hip, initial encounter (principal); S70.11XA Contusion of right thigh, initial encounter; E86.0 Dehydration; W01.0XXA Fall on same level from slipping, tripping and stumbling without subsequent striking against object, initial encounter
CPT/HCPCS: 99285; 73502; 73552; 80053; 81003; 81015; 85025; 93005

== ENCOUNTER → 2024-11-18 12:47 | Outpatient (REF) | payer MEDICARE, SELFPAY | LOC: WOUND 12:47 | PROVIDERS: ATTENDING PHYSICIAN Surgery; FAMILY PHYSICIAN Family Medicine | DX: L89.154 Pressure ulcer of sacral region, stage 4 (principal); S50.01XA Contusion of right elbow, initial encounter; M06.9 Rheumatoid arthritis, unspecified; I25.118 Atherosclerotic heart disease of native coronary artery with other forms of angina pectoris; F03.A2 Unspecified dementia, mild, with psychotic disturbance; I27.20 Pulmonary hypertension, unspecified; W19.XXXA Unspecified fall, initial encounter | CPT/HCPCS: 11043; 72220; 99204 ==

== ENCOUNTER → 2024-11-28 11:00 | Outpatient (REF) | payer MEDICARE, SELFPAY | LOC: WOUND 11:00 | PROVIDERS: ATTENDING PHYSICIAN Surgery; FAMILY PHYSICIAN Family Medicine | DX: L89.154 Pressure ulcer of sacral region, stage 4 (principal); S50.01XA Contusion of right elbow, initial encounter; M06.9 Rheumatoid arthritis, unspecified; I25.118 Atherosclerotic heart disease of native coronary artery with other forms of angina pectoris; F03.A2 Unspecified dementia, mild, with psychotic disturbance; I27.20 Pulmonary hypertension, unspecified; W19.XXXA Unspecified fall, initial encounter | CPT/HCPCS: 11043 ==

== ENCOUNTER → 2024-12-05 13:13 | Outpatient (REF) | payer MEDICARE, SELFPAY | LOC: WOUND 13:13 | PROVIDERS: ATTENDING PHYSICIAN Surgery | DX: L89.154 Pressure ulcer of sacral region, stage 4 (principal); S50.01XA Contusion of right elbow, initial encounter; M06.9 Rheumatoid arthritis, unspecified; I25.118 Atherosclerotic heart disease of native coronary artery with other forms of angina pectoris; F03.A2 Unspecified dementia, mild, with psychotic disturbance; I27.20 Pulmonary hypertension, unspecified; W19.XXXA Unspecified fall, initial encounter | CPT/HCPCS: 99213 ==

== ENCOUNTER → 2024-12-12 14:53 | Outpatient (REF) | payer MEDICARE, SELFPAY | LOC: WOUND 14:53 | PROVIDERS: ATTENDING PHYSICIAN Surgery; FAMILY PHYSICIAN Family Medicine | DX: L89.154 Pressure ulcer of sacral region, stage 4 (principal); S50.01XA Contusion of right elbow, initial encounter; M06.9 Rheumatoid arthritis, unspecified; I25.118 Atherosclerotic heart disease of native coronary artery with other forms of angina pectoris; F03.A2 Unspecified dementia, mild, with psychotic disturbance; I27.20 Pulmonary hypertension, unspecified; W19.XXXA Unspecified fall, initial encounter | CPT/HCPCS: 99215 ==

== ENCOUNTER 2024-12-12 18:12 | Inpatient (IN) | payer MEDICARE, SELFPAY ==
[2024-12-12] VITALS (10 sets, daily range): BP systolic 83–131; BP diastolic 43–82; BMI 17.2; BMI 16.7
--- NOTE | 2024-12-12 15:56 | ED.GENMED ---
History of Present Illness
General
Chief Complaint: Skin Problem
Source: patient and spouse
Exam Limitations: none
Time Seen by Provider: 12/12/24 15:49
History of Present Illness
History of Present Illness:
See MDM
Past History
Past History
ED Past Medical History: Arrthythmia, CAD, HTN, Other (Dementia) and Other (Rheumatoid arthritis, anemia, dementia, pulmonary hypertension)
Social History
Tobacco: Non-smoker
Alcohol: None
Drug: None
Living: [facility]
Phy Exam
Physical Exam
Physical Exam:
See MDM
Course
Orders/Labs/Results
Orders:
Orders
12/12/24 15:55
Morphine Sulfate 4 mg IV NOW STA
Piperacillin/Tazo 3.375 Gram [Zosyn] 3.375 gram in 50 ml IV NOW
12/12/24 16:27
Complete Blood Count/With Diff Urgent
Comprehensive Metabolic Panel Urgent
Abnormal Lab Results
12/12/24
16:27
RBC 3.05 L 10^6/uL
(4.20-5.40)
Hgb 8.3 L g/dL
(12.0-16.0)
Hct 26.2 L %
(37.0-47.0)
MCHC 31.7 L g/dL
(33.0-37.0)
Absolute Lymphs (auto) 1.1 L 10^3/uL
(1.2-3.4)
Absolute Monos (auto) 0.8 H 10^3/uL
(0.1-0.6)
Lymphocytes % 13.2 L %
(20.5-51.1)
Monocytes % 9.4 H %
(1.7-9.3)
Sodium 133 L mmol/L
(135-145)
BUN 31 H mg/dl
(7-17)
Alkaline Phosphatase 31 L U/L
(38-126)
12/12/24 16:27
12/12/24 16:27
Vital Signs
Initial and Last Documented VS:
Initial Vital Signs
Temp Pulse Resp BP Pulse Ox
97.9 F 89 20 90/54 97
12/12/24 15:24 12/12/24 15:24 12/12/24 15:24 12/12/24 15:24 12/12/24 15:24
Last Documented Vital Signs
Temp Pulse Resp BP Pulse Ox
97.9 F 86 20 90/54 95
12/12/24 15:24 12/12/24 16:53 12/12/24 15:24 12/12/24 15:24 12/12/24 16:53
MDM/Problems Addressed
Differential Diagnosis Includes:
Note:
CHIEF COMPLAINT(S)
Wound
HISTORY OF PRESENT ILLNESS
The patient is an 84-year-old female who presents with a wound that she has been dealing with for a couple of weeks. She was referred by her solar project coordination specialist for further evaluation and management. She reports that the wound bothers her. The
plan is to admit her for intravenous antibiotics and pain management and possible surgical debridement.
ALLERGIES
The patient states she has no known drug allergies.
PHYSICAL EXAM
General: Weak and frail
HEENT: protecting airway
Neck: appears supple
CV: No evidence of cyanosis
Resp: No accessory muscle use
Abd: Non-distended
Back: Large decubitus ulcer with packing in place
Extremities: No deformities
Neuro: alert
Psych: Normal affect
Skin: Intact
PLAN
The patient will be admitted for overnight observation to receive intravenous antibiotics and pain management. Surgical debridement is planned but will not occur today.
DIFFERENTIAL DIAGNOSIS
The Differential Diagnosis includes, in no particular order and is not limited to:
1. Chronic wound infection
2. Diabetic ulcer (if applicable)
3. Venous stasis ulcer
4. Osteomyelitis
SUMMARY OF ENCOUNTER
The patient is an 84-year-old female who presented with a wound that has been problematic for a couple of weeks. She was referred by her solar project coordination specialist for further evaluation and management. The plan includes admission for intravenous
antibiotics and pain management due to the patients ongoing symptoms and discomfort from the wound. Blood work showed evidence of anemia, but it was noted to be not far from her baseline levels. Her wound care plan involved a consideration of
surgical debridement.
DISPOSITION
Admit
CONSIDERATION FOR ADMISSION
Yes, for intravenous antibiotics and pain management due to ongoing symptoms and potential surgical intervention.
PLAN
The patient will be admitted for overnight observation to receive intravenous antibiotics and pain management. There is a plan for general surgery evaluation for possible debridement, but this will not occur today.
REASSESSMENT
On reassessment after administration of pain medication, the patient reported feeling better.
MEDICATION RECONCILIATION
An admission order for intravenous antibiotics was placed as part of the management plan.
MANAGEMENT OF THE PATIENTS CARE WAS DISCUSSED WITH
Discussion with hospice was conducted to include them in the wound care plan and ensure the possibility of surgical debridement is evaluated by general surgery.
MEDICAL DECISION MAKING
Number and Complexity of Problems Addressed:
The patient presented with a wound that has been challenging to manage and required careful assessment for ongoing infection and pain management. Considerations included potential complications like a chronic wound infection requiring
hospitalization for treatment.
Data:
Blood work revealing anemia was reviewed in relation to the patients previous levels. The decision to initiate IV antibiotics and possibly involve surgical intervention underscored the complexity of the management required.
Risk:
Given the patients age and wound condition, the risk of complications such as infection spread warranted proactive intervention. The decision to admit for hospitalization and initiate IV antibiotics highlights this risk, impacted further by social
determinants such as the need for comprehensive wound care not manageable outside the hospital setting.
*Critical Care Note
Total Time (30-74mins, 75-104mins- exclusive of procedures): Not Applicable
ED Attending Note
-
Portions of this chart may have been created with voice recognition software.� Occasional wrong word or��sound alike� substitutions may have occurred due to the inherent limitations of voice recognition software.
Discharge Plan
Departure
Patient Disposition: Admit
Date of Disposition: 12/12/24
Time of Disposition: 17:14
Admit to: Med/Surg
Presentation/result/management discussed w/ accepting MD/DO: Hospitalist
Discharge Problem:
Sacral decubitus ulcer
Prescriptions:
No Action
acetaminophen [Tylenol] 325 mg Tablet
650 mg PO Q8H@
polyethylene glycol 3350 17 gram Powder In Packet
17 g PO DAILYPRN PRN (Reason: constipation)
pantoprazole 40 mg Tablet,Delayed Release (Dr/Ec)
40 mg PO DAILY
docusate sodium 100 mg Capsule
100 mg PO Q48H@0800
Patient Comments:
10/09/2023, next date on Monday (10/10/2023) per [place] paperwork.
sertraline 25 mg Tablet
25 mg PO HS
ojgmcpmbude-vkrubfayi-zar C-Mn [Glucosamine Chondroitin MaxStr] 500-400 mg Capsule
1 cap PO TID@
rosuvastatin 10 mg Tablet
10 mg PO DAILY@0900
Salonpas 3.1-10-6 % Adhesive Patch,Medicated
1 patch TOPICAL DAILY@0900
Patient Comments:
10/09/2023, on 12 hrs, off 12 hours.
metoprolol succinate 25 mg tablet extended release 24 hr
25 mg PO HS Qty: 30 0RF
aspirin [Children's Aspirin] 81 mg Tablet,Chewable
81 mg PO DAILY Qty: 30 0RF
lisinopril 10 mg Tablet
10 mg PO BID Qty: 60 0RF
bismuth subsalicylate [Pepto-Bismol] 262 mg Tablet,Chewable
2 tab PO QIDPRN PRN (Reason: upset stomach)
ondansetron 4 mg tablet,disintegrating
4 mg translingual DAILY
mirtazapine 7.5 mg tablet
7.5 mg PO HS
lidocaine 4 % Adhesive Patch,Medicated
1 patch TOPICAL DAILY
cefdinir 300 mg capsule
300 mg PO BID 3 Days Qty: 6 0RF
oxycodone 10 mg Tablet
10 mg PO Q6H@00,06,12,18 Qty: 3 0RF
Referrals:
Jamil Alejo DO [Family Provider, Family Practice]
Interventions
Interventions:
*General Assessment Last Done: 12/12/24 15:24
*Neglect/Abuse Screening Last Done: 12/12/24 15:24
Discharge Date and Time
Print Language: WELSH
[2024-12-12] MEDS: ZOSYN 50 IV (16:29)
[2024-12-12] MEDS: MORPHINE SULFATE 4 MG IV ×2 (16:29→20:15)
[2024-12-12 16:41] LABS: % Basophils 0.6 % (0-2); % Eosinophils 1.9 % (0-6); % Immature Granulocytes 0.2 % (0-0.5); % Lymphocytes 13.2 % (20.5-51.1); % Monocytes 9.4 % (1.7-9.3); % Neutrophils 74.7 % (42.2-75.2); Absolute Basophils 0.1 10^3/uL (0-0.2); Absolute Eosinophils 0.2 10^3/uL (0-0.7); Absolute Lymphocytes 1.1 10^3/uL (1.2-3.4); Absolute Monocytes 0.8 10^3/uL (0.1-0.6); Absolute Neutrophils 6.2 10^3/uL (1.4-6.5); Hematocrit 26.2 % (37.0-47.0); Hemoglobin 8.3 g/dL (12.0-16.0); Mean Corp Hgb Conc. 31.7 g/dL (33.0-37.0); Mean Corpuscular Hgb 27.2 pg (27.0-31.0); Mean Corpuscular Volume 85.9 fL (81.0-99.0); Nucleated Red Blood Cells % 0 %; Red Blood Cell Count 3.05 10^6/uL (4.20-5.40); Red Cell Dist. Width 14.1 % (11.5-14.5); White Blood Cell Count 8.3 10^3/uL (4.8-10.8)
[2024-12-12 16:48] LABS: ALT (SGPT) < 10 U/L (0-35); AST (SGOT) 21 U/L (14-36); Albumin 3.6 g/dl (3.5-5.0); Alkaline Phosphatase 31 U/L (38-126); Blood Urea Nitrogen 31 mg/dl (7-17); Calcium 9.8 mg/dl (8.4-10.2); Carbon Dioxide 28 mmol/L (22-30); Chloride 100 mmol/L (98-107); Estimated Creatinine Clearance 39 ml/min; Glucose 81 mg/dl (70-99); Potassium 5.1 mmol/L (3.5-5.1); Sodium 133 mmol/L (135-145); Total Bilirubin 0.4 mg/dl (0.2-1.3); Total Protein 6.7 g/dl (6.3-8.2); eGFR > 60.00
[2024-12-12 17:06] LABS: Mean Platelet Volume 9.6 fL (7.4-10.4); Platelet Count 346 10^3/uL (130-400)
--- NOTE | 2024-12-12 17:26 | HPS.HSE ---
Family Physician
-
Family Physician: Jamil Alejo
Chief Complaint
-
sacral wound
History of Present Illness
84-year-old female with past medical history for hypertension, rheumatoid arthritis, coronary artery disease, pulmonary hypertension presented to us with worsening sacral wound for past few weeks. Patient follow-up with wound care as outpatient.
She was recommended by woundcare physician for ER evaluation. Patient denied any fever, chills, chest pain, short of breath. Patient denied any headache, dizzy or syncope. Patient denied abdominal pain, nausea, vomiting or diarrhea. Patient
denied dysuria hematuria.
Patient received Zosyn in ER. Admitted for further management
Medical History
Past Medical History
Past Medical History: Reports Other
Additional Past Medical History:
Hypertension
Rheumatoid arthritis
Coronary artery disease
Pulmonary hypertension
Past Surgical History: Reports Other
Additional Past Surgical History:
Bilateral knee replacement
Left shoulder TSA
Social History
Tobacco: Non-smoker
Alcohol: None
Drug: None
Personal:
Living: [facility]
Family History
Family History: Not pertinent
Allergies / Home Medications
Allergies reflects when Allergies were last updated in [employer].
Home Medications with original date entered in [employer]
Allergy/Medication List:
Allergies
Allergy/AdvReac Type Severity Reaction Status Date / Time
No Known Allergies Allergy Unverified 10/09/23 20:43
Home Medications
acetaminophen 325 mg tablet (Tylenol) 650 mg PO Q8H@06,14,22 Pain 10/09/23
camphor 3.1 %-methyl salicylate 10 %-menthol 6 % topical patch (Salonpas) 1 patch topical DAILY@0900 apply to painful area 10/09/23
docusate sodium 100 mg capsule 100 mg PO Q48H@0800 Constipation 10/09/23
zfyyaksfrdv-mxqqrsbal-pvb C-Mn 500 mg-400 mg capsule (Glucosamine Chondroitin Maximum Strength) 1 cap PO TID@06,14,22 Supplement 10/09/23
pantoprazole 40 mg tablet,delayed release 40 mg PO DAILY Gastrointestinal Issue 10/09/23
polyethylene glycol 3350 17 gram oral powder packet 17 g PO DAILYPRN PRN constipation 10/09/23
rosuvastatin 10 mg tablet 10 mg PO DAILY@0900 High Cholesterol 10/09/23
sertraline 25 mg tablet 25 mg PO HS Mental Health/Anxiety 10/09/23
aspirin 81 mg chewable tablet (Children's Aspirin) 81 mg PO DAILY #30 tabs 10/12/23
lisinopril 10 mg tablet 10 mg PO BID #60 tabs 10/12/23
metoprolol succinate 25 mg tablet,extended release 24 hr 25 mg PO HS #30 tabs 10/12/23
bismuth subsalicylate 262 mg chewable tablet (Pepto-Bismol) 2 tab PO QIDPRN PRN upset stomach 01/18/24
mirtazapine 7.5 mg tablet 7.5 mg PO HS Mental Health/Anxiety 01/18/24
ondansetron 4 mg disintegrating tablet 4 mg translingual DAILY NAUSEA 01/18/24
lidocaine 4 % topical patch 1 patch topical DAILY left shoulder pain 01/19/24
cefdinir 300 mg capsule 300 mg PO BID 3 days #6 caps 01/21/24
oxycodone 10 mg tablet 10 mg PO Q6H@00,06,12,18 Pain #3 tabs 01/22/24
Review of Systems
-
Constitutional: Reports No Symptoms
EENT: Reports No Symptoms
Respiratory: Reports No Symptoms
Cardiac: Reports No Symptoms
Abdomen/GI: Reports No Symptoms
: Reports No Symptoms
Musculoskeletal: Reports No Symptoms
Skin: Reports Other (Sacral wound)
Neurological: Reports No Symptoms
Endocrine: Reports No Symptoms
Hematologic/Lymphatic: Reports No Symptoms
Psych: Reports No Symptoms
Physical Exam
Vital Signs
Vital Signs
Temp Pulse Resp BP Pulse Ox
97.9 F 86 20 90/54 95
12/12/24 15:24 12/12/24 16:53 12/12/24 15:24 12/12/24 15:24 12/12/24 16:53
Physical Exam
General: Well Developed, Well Nourished and No Apparent Distress
HEENT: NormoCephalic, Moist mucous membranes and Atraumatic
Respiratory: Clear
Cardiac: S1/S2 and Regular Rhythm; No Murmur or Rub
GI: Soft, Non Tender, Non Distended and Normal Bowel Sounds; No Organomegaly
Rectal: Deferred by Provider
Musculoskeletal: No Clubbing, No Cyanosis and No Edema
Skin: Rash and Other (Large sacral wound)
Neuro: AO x 3 and Nonfocal/grossly intact
Psych: Calm
Laboratory Results
-
12/12/24 16:27
12/12/24 16:27
Laboratory Results
Total Bilirubin 0.4 mg/dl (0.2-1.3) 12/12/24 16:27
AST 21 U/L (14-36) 12/12/24 16:27
ALT < 10 U/L (0-35) 12/12/24 16:27
Alkaline Phosphatase 31 U/L (38-126) L 12/12/24 16:27
Data Reviewed
-
Lab Data: Labs Reviewed by me
Impression/Plan
-
# Sacral wound
- Surgical consult for debridement
- Wound care consult
- IV Zosyn in ER.
-Dilaudid prn for apin
# Anemia of chronic disease
- Hemoglobin stable at 8.3
- Not active bleeding
- Continue to monitor
# Chronic right shoulder pain on chronic oral opiates
# Rheumatoid arthritis with deformities to hands and feet
# Chronic ambulatory dysfunction uses walker at baseline
# Chronic RBBB
# Chronic moderate aortic stenosis peak mean gradient 42 mmHg / 25 mmHg
# TIA
-ASA continued
# HTN
# GERD
Continue Protonix 40 mg daily
# Anxiety
# Insomnia
DVT prophylaxis: Subcu Lovenox
#CODE status
-full code
attempted multiple times get med rec, unfortunately unable to [facility] and [facility] was also not working
--- NOTE | 2024-12-12 17:55 | W.PN.UPDATE ---
Update Note
Progress Note Update
This is an addendum to H&P written by INTERPRETER TRANSLATOR Griselda Taylor
I saw and examined the patient.
The INTERPRETER TRANSLATOR's note was reviewed and I agree with the note.
Comment:
Ms. Angelia Patterson is a 84 yo woman with hx dementia, [place] resident, rheumatoid arthritis, moderate , HTN, GERD sent to the ER from wound clinic for progression of sacral wound.
Triage VS: T 97.9, P 89, RR 20, BP 90/54, SpO2 97%
On exam patient is awake, alert, in no distress. Stage IV sacral ulcer with mild surrounding erythema no significant drainage
LABS: WBC 8.3, Hg 8.3, PLT 346, Na 133, K+ 5.1, Cr 0.8, Glucose 81, liver enzymes
Stage IV Sacral Ulcer
-hold off on antibiotics for now
General Surgery to see patient tomorrow
RA
Moderate
Essential HTN
GERD
-*remainder of plan per INTERPRETER TRANSLATOR note
*awaiting med rec
FULL CODE
--- NOTE | 2024-12-12 18:18 | EDRN ---
this RN spoke to the nurse from [facility] and she stated that she would fax this RN over the medication list for the pt, this RN never received the medication list and called [facility] again at [phone] and spoke to the pocket secretary assembler who stated that the
nurse was in the middle of a med pass however she stated that the nurse has the ED fax number and that she would fax over the medication list once she was done her med pass, this RN will notify the provider
--- NOTE | 2024-12-12 18:54 | EDRN ---
this RN notified [facility] that the medication reconciliation was not performed per their request, this RN called [facility] again and they stated that they would fax over the medication list when they had a moment to do so
[2024-12-12] MEDS: LOVENOX 40 MG SC (21:05)
[2024-12-13 07:20] VITALS: BP 107/57
--- NOTE | 2024-12-13 08:37 | CM ---
Addendum entered by Trang Barrera RN 12/13/24 09:21:
CM received call from [facility] that patient is currently on service with them. CM sent referral via [facility] for [facility].
CM will continue to follow.
PLAN: return to [place], with [facility].
Original Note:
CM reviewed medical records. Patient live at [facility] with . CM left message for AURELIANO Rodriguez at [facility] for assessment.
[2024-12-13 08:53] LABS: Blood Urea Nitrogen 16 mg/dl (7-17); Calcium 9.8 mg/dl (8.4-10.2); Carbon Dioxide 28 mmol/L (22-30); Chloride 99 mmol/L (98-107); Estimated Creatinine Clearance 50 ml/min; Glucose 95 mg/dl (70-99); Potassium 4.6 mmol/L (3.5-5.1); Sodium 135 mmol/L (135-145); eGFR > 60.00
--- NOTE | 2024-12-13 08:55 | W.PN.HOSP.TC ---
Today's Communication/Plan
-
awaiting GS Eval
Assessment / Plan
Assessment / Plan
Ms. Angelia Patterson is a 84 yo woman with hx dementia, [place] resident, rheumatoid arthritis, moderate , HTN, GERD sent to the ER from wound clinic for progression of sacral wound.
Triage VS: T 97.9, P 89, RR 20, BP 90/54, SpO2 97%
On exam patient is awake, alert, in no distress. Stage IV sacral ulcer with mild surrounding erythema no significant drainage
LABS: WBC 8.3, Hg 8.3, PLT 346, Na 133, K+ 5.1, Cr 0.8, Glucose 81, liver enzymes
Stage IV Sacral Ulcer
-hold off on antibiotics for now
General Surgery to see patient this morning
-pain control
RA
Moderate
Essential HTN
-BP low/normal here, hold PILOT CONTROL OPERATOR Metoprolol, Lisinopril
GERD - PILOT CONTROL OPERATOR Protonix
*awaiting med rec
DVT PPx Lovenox subQ
FULL CODE
Anticipated Discharge: > 48 hours
Subjective/Interval History
-
Date of Service: December 13, 2024
repositioned in bed, states feeling achey
Objective Data
-
Labs:
Laboratory Results
12/13/24
07:38
WBC Pending
Hgb Pending
Hct Pending
Plt Count Pending
Sodium 135
Potassium 4.6
Chloride 99
Carbon Dioxide 28
BUN 16
Creatinine 0.6
Glucose 95
Calcium 9.8
Vital Signs:
Vital Signs
Temp Pulse Resp BP Pulse Ox
98.8 F 104 16 107/57 98
12/13/24 07:20 12/13/24 07:20 12/13/24 07:20 12/13/24 07:20 12/13/24 07:20
I&O
12/12/24 12/13/24 12/14/24
06:59 06:59 06:59
Intake Total 480 / 480
Balance 480 / 480
Review of Systems
-
History Source: Patient
All other systems: Reviewed and negative
Physical Exam
-
General: Other (frail appearing)
HEENT: PERRLA
Respiratory: Clear to Auscultation; Negative Wheezes
Cardiac: Regular Rhythm and S1/S2
GI: Soft and Nontender
Musculoskeletal: No Edema
Skin: Other (stage IV sacral wound without drainage)
Neuro: Awake and Alert
Psych: Calm
Data Reviewed
-
Diagnostic Radiology: Report Reviewed by me
Labs: Labs Reviewed by me
[2024-12-13 08:57] LABS: Hematocrit 25.1 % (37.0-47.0); Mean Corp Hgb Conc. 31.9 g/dL (33.0-37.0); Mean Corpuscular Hgb 27.5 pg (27.0-31.0); Mean Corpuscular Volume 86.3 fL (81.0-99.0); Mean Platelet Volume 8.8 fL (7.4-10.4); Platelet Count 339 10^3/uL (130-400); Red Blood Cell Count 2.91 10^6/uL (4.20-5.40); Red Cell Dist. Width 14.2 % (11.5-14.5); White Blood Cell Count 7.2 10^3/uL (4.8-10.8)
--- NOTE | 2024-12-13 09:07 | CON.GS ---
Addendum entered and electronically signed by Emmanuel Landis MD 12/13/24 16:52:
Patient seen and examined in consultation this afternoon with surgical MEDICAL AFFAIRS MANAGER. Agree with documented consultation note from earlier today.
Patient's at bedside who assists with history taking.
HPI: 84-year-old female with known stage IV sacral decubitus ulcer which reportedly started after a fall at home on her tailbone. She has been seen at the [facility] wound care center. Her has been caring for her wound at home with
the assistance of nursing. She was referred for further evaluation and admission for wound care yesterday. Pain at the site of her pressure ulcer.
AFVSS
NAD AAO x 3, pleasant; forgetful with parts of history
Sacral region with approximately 4 cm decubitus ulcer and surrounding undermining extending an additional 3 cm. Palpable presacral fascia. No immediate bone. Some purulent exudate and mild sloughing overlying presacral fascia. No necrotic
tissue. Subcutaneous tissues granulating in areas. No significant buildup of softening.
Assessment/plan: 84-year-old female with stage IV sacral decubitus ulcer
While there is some purulent exudate there does not appear to be excessive sloughing nor subcutaneous/dermal necrosis to require sharp excisional or mechanical debridement at this time. Would carefully cleanse region with Dakin's and take care to
ensure that all undermining areas are being packed with Dakin's moistened Kerlix/gauze. Likely after 5 to 7 days of Dakin's packings any residual sloughing may be treated with Santyl.
Continue with additional typical sacral decubitus precautions such as offloading, mobilize as able and ensuring adequate nutritional intake.
Patient and her questioning role for plastic surgery evaluation as well. While I have no objections for an evaluation/consultation I advised that the acute infectious component has to be cleared prior to any consideration of tissue flap
procedure.
Original Note:
Consultation
-
Date/Time Consultation Requested: 12/12/242036
Date/Time Consultation Performed: 12/13/24 09
Medical History
-
Chief Complaint: Wound
History of Present Illness:
Ms Patterson is an 84 yo female with a h/o RA, CAD, Pulmonary HTN and known stage 4 pressure ulcer to the sacrum who lives at an [facility] with her and recently fell nearly one month ago at which point, a sacral decubitus ulcer was noted at that
time. Up until that point, she was unaware she had a wound. She has been following at the wound care center since then and notes that her has been doing her dressing changes for her at home. She notes burning discomfort to the wound but
denies fevers or chills. She reports there has been less drainage than previous but it was recommended that she present through the ED for evaluation by her care team to have the wound evaluated. She is stiff with movement and notes she is mostly
bed to WC bound.
Past Medical History
Past Medical History: CAD, GERD, HTN, Psychiatric (depression) and Other (RA, mild dementia, pulmonary HTN)
Past Surgical History: Orthopedic (BL TKR, L TSA)
Social History
Tobacco: Non-Smoker
Alcohol: Occasional
Living: Assisted Living ([facility])
Family History
Family History: Reviewed & Not Pertinent
Allergies / Home Medications
Allergy/AdvReac Type Severity Reaction Status Date / Time
No Known Allergies Allergy Unverified 10/09/23 20:43
�Medication �Instructions �Recorded �Confirmed �Type
acetaminophen 325 mg tablet 650 mg PO Q8H@,, Pain 10/09/23 01/18/24 History
(Tylenol)
camphor 3.1 %-methyl salicylate 10 1 patch topical DAILY@0900 apply 10/09/23 01/18/24 History
%-menthol 6 % topical patch to painful area
(Salonpas)
docusate sodium 100 mg capsule 100 mg PO Q48H@0800 Constipation 10/09/23 01/18/24 History
esdztgnqyah-hppygzoaw-gjf C-Mn 500 1 cap PO TID@06,14,22 Supplement 10/09/23 01/18/24 History
mg-400 mg capsule (Glucosamine
Chondroitin Maximum Strength)
pantoprazole 40 mg tablet,delayed 40 mg PO DAILY Gastrointestinal 10/09/23 12/12/24 History
release Issue
polyethylene glycol 3350 17 gram 17 g PO DAILYPRN PRN constipation 10/09/23 01/18/24 History
oral powder packet
rosuvastatin 10 mg tablet 10 mg PO DAILY@0900 High 10/09/23 12/12/24 History
Cholesterol
sertraline 25 mg tablet 25 mg PO HS Mental Health/Anxiety 10/09/23 01/18/24 History
aspirin 81 mg chewable tablet 81 mg PO DAILY #30 tabs 10/12/23 12/12/24 Rx
(Children's Aspirin)
lisinopril 10 mg tablet 10 mg PO BID #60 tabs 10/12/23 12/12/24 Rx
metoprolol succinate 25 mg 25 mg PO HS #30 tabs 10/12/23 12/12/24 Rx
tablet,extended release 24 hr
bismuth subsalicylate 262 mg 2 tab PO QIDPRN PRN upset stomach 01/18/24 01/18/24 History
chewable tablet (Pepto-Bismol)
mirtazapine 7.5 mg tablet 7.5 mg PO HS Mental Health/Anxiety 01/18/24 01/18/24 History
ondansetron 4 mg disintegrating 4 mg translingual DAILY NAUSEA 01/18/24 01/18/24 History
tablet
lidocaine 4 % topical patch 1 patch topical DAILY left 01/19/24 01/19/24 History
shoulder pain
oxycodone 10 mg tablet 10 mg PO Q6H@00,,, Pain #3 01/22/24 Rx
tabs
cefdinir 300 mg capsule 300 mg PO BID Infection 12/13/24 History
Review of Systems
-
History Source: Patient
All other systems: Negative unless noted
A 10 point review of systems was completed, and was negative except as per HPI.
Physical Exam
Vital Signs
Temp Pulse Resp BP Pulse Ox
98.8 F 104 16 107/57 98
12/13/24 07:20 12/13/24 07:20 12/13/24 07:20 12/13/24 07:20 12/13/24 07:20
12/12/24 12/13/24 12/14/24
06:59 06:59 06:59
Actual Weight 44.197 kg
Body Mass Index (BMI) 16.7
Lab Results
12/13/24 07:38
12/13/24 07:38
WBC 7.2 10^3/uL (4.8-10.8) 12/13/24 07:38
Hgb 8.0 g/dL (12.0-16.0) L 12/13/24 07:38
Hct 25.1 % (37.0-47.0) L 12/13/24 07:38
Plt Count 339 10^3/uL (130-400) 12/13/24 07:38
Abs Immat Gran (auto) 0.0 10^3/uL (0-0.05) 12/12/24 16:27
Neutrophils % 74.7 % (42.2-75.2) 12/12/24 16:27
Physical Exam
General: Well Developed
HEENT: Moist Mucous Membranes
Respiratory: Non Labored Respirations
GI: Soft and Non Tender
Skin: Warm and Other (stage 4 sacral wound with some pink, healthy tissue to base. some purulent/fibrinous discharge to base of wound with slough present. no eschar tissue.)
Neuro: Awake, Alert and AO x 3
Data Reviewed
-
Radiology: Image Personally Visualized and interpreted, Discussed with Physician and Discussed with Patient
Labs: Labs Reviewed by me, Discussed with Physician and Discussed with Patient
Old Records: Reviewed
Assessment / Plan
-
84 yo female with h/o RA presenting for evaluation of stage 4 sacral wound with some purulent drainage from base of wound noted one exam. Slough present in wound bed but no eschar tissue noted. No leukocytosis or fevers, mild tachycardia this am but
has been off home dosage of metoprolol. Immobility contributing as is poor nutrition (BMI 16.7). Has been following at the wound center as an outpatient.
--Send wound cultures
--Daily wound care with Dakin's soaked kerlix packing to wound bed
--Wound care and shelter supervisor consulted to evaluate
--PT/OT consult placed, CM following
[2024-12-13] MEDS: DAKIN'S SOLUTION 0.125% 1/4 STRENGTH 1 ML TOPICAL (09:45)
[2024-12-13] MEDS: ROXICODONE 5 MG PO ×3 (09:45→22:24)
[2024-12-13] MEDS: PROTONIX 40 MG PO (09:45)
[2024-12-13] MEDS: CRESTOR 10 MG PO (09:45)
[2024-12-13] MEDS: LOW STRENGTH ASPIRIN 81 MG PO (09:46)
--- NOTE | 2024-12-13 09:57 | PN.CDI ---
CDI
- -
CDI:
Physician Documentation Request
Admit Date: 12/12/24 18:12
Dear Doctor Em,
Patient admitted for sacral wound.
ER Physician Documentation: '
H&P: 'Home Medications: oxycodone 10 mg tablet 10 mg PO Q6H@00,06,12,18 Pain #3 tabs 01/22/24'
If possible, please provide further specificity as outlined below:
Opioid dependence
Opioid use
Other
Use of terms such as suspected, likely, concern for, or probable (associated with a specific diagnosis that is being evaluated, monitored, or treated as if it exists) are acceptable and can be coded in the inpatient setting, when documented at the
time of discharge.
Thank you,
Laly Hendricks RN, BSN
CDI Specialist
Available via [place] text
Please use your independent medical judgment in providing your response.
--- NOTE | 2024-12-13 10:12 | PN.CDI ---
CDI
- -
CDI:
Physician Documentation Request
Admit Date: 12/12/24 18:12
Dear Doctor Em,
Patient admitted for sacral ulcer.
Please review the following and provide your response in the progress notes.
Clinical Indicators:
Height: 5' 4'
Weight: 97 lbs
BMI: 16.7
ER Physician Documentation: 'Weak and frail'
If possible, please provide an associated diagnosis related to the abnormal BMI, such as:
Cachectic
Underweight
BMI is not significant
Other
BMI < or = to 19.9
Underweight
Weight Loss
Cachectic
Anorexia
Use of terms such as suspected, likely, concern for, or probable (associated with a specific diagnosis that is being evaluated, monitored, or treated as if it exists) are acceptable and can be coded in the inpatient setting, when documented at the
time of discharge.
Thank you,
Laly Hendricks RN, BSN
CDI Specialist
Available via [place] text
Please use your independent medical judgment in providing your response.
[2024-12-13 10:42] VITALS: BMI 17.2
--- NOTE | 2024-12-13 11:27 | WOUNDNOTE ---
SAC
SACRAL WOUND
--- NOTE | 2024-12-13 11:29 | WOUNDNOTE ---
[facility] RN note: Patient admitted with sacral ulcer
See H&P for complete history.
PMH: HTN, arthritis, low BMI.
Wound Location and type/assessment: Patient admitted with stage 4 sacral ulcer. See worklist and pictures for details and measurements. Periwound with mild erythema and drainage appears to be moderate without odor. Patient was medicated for pain by
RNAmy prior to assessment. Patient has been following at [facility] and Dr. Linn suggested patient go to ER. Patient has arthritis and is very stiff and demonstrates poor mobility. She resides in [place] facility with who was present during
wound care. Heels are intact.
Appetite: Poor. Dietary consult has been ordered. BMI 16.7
Pressure redistribution devices in place: Static Air overlay, heels off-loaded with pillows under calves.
Plan: Discussed with ALEJA Mccallum. Awaiting assessment by Dr. Landis for possible debridement of sloughy tissue inside the wound. Wound care completed as ordered and adhesive foam applied to heels. Will continue to follow as needed.
Note to case management of equipment requested for discharge: Air mattress
Recommend follow up at wound care center upon discharge.
[2024-12-13 15:11] VITALS: BP 126/73
[2024-12-13 16:08] VITALS: BP 106/61; PULSE 107; O2SAT 100
[2024-12-13 16:13] VITALS: BP 106/61; PULSE 107
--- NOTE | 2024-12-13 16:25 | PTCARENOTE ---
Multiple phone calls made throughout day to obtain pt med list. They faxed it here twice but we did not receive it. I also gave fax number for [facility] and still did not receive. I called and got a verbal med list from [facility]. TT sent to
Em to notify I updated list.
[2024-12-13] MEDS: LOVENOX 40 MG SC (18:09)
[2024-12-13] MEDS: LIDOCAINE 4% PATCH 1 PATCH TOPICAL (18:09)
[2024-12-13] MEDS: DILAUDID 0.25 MG IV (18:18)
[2024-12-13 23:07] VITALS: BP 112/72
[2024-12-14] MEDS: DILAUDID 0.25 MG IV ×2 (03:46→19:51)
[2024-12-14 06:00] VITALS: BMI 16.4
[2024-12-14 06:10] LABS: Hematocrit 25.3 % (37.0-47.0); Hemoglobin 8.3 g/dL (12.0-16.0); Mean Corp Hgb Conc. 32.8 g/dL (33.0-37.0); Mean Corpuscular Volume 85.5 fL (81.0-99.0); Mean Platelet Volume 8.7 fL (7.4-10.4); Platelet Count 337 10^3/uL (130-400); Red Blood Cell Count 2.96 10^6/uL (4.20-5.40); Red Cell Dist. Width 14.1 % (11.5-14.5); White Blood Cell Count 7.8 10^3/uL (4.8-10.8)
[2024-12-14 06:31] LABS: Blood Urea Nitrogen 13 mg/dl (7-17); Calcium 9.9 mg/dl (8.4-10.2); Carbon Dioxide 29 mmol/L (22-30); Chloride 101 mmol/L (98-107); Estimated Creatinine Clearance 49 ml/min; Glucose 91 mg/dl (70-99); Potassium 4.5 mmol/L (3.5-5.1); Sodium 136 mmol/L (135-145); eGFR > 60.00
[2024-12-14 07:30] VITALS: BP 111/71
[2024-12-14] MEDS: PROTONIX 40 MG PO (07:42)
[2024-12-14] MEDS: LIDOCAINE 4% PATCH 1 PATCH TOPICAL (07:42)
[2024-12-14] MEDS: LOW STRENGTH ASPIRIN 81 MG PO (07:42)
[2024-12-14] MEDS: DAKIN'S SOLUTION 0.125% 1/4 STRENGTH 473 ML TOPICAL ×2 (07:54→19:46)
--- NOTE | 2024-12-14 09:10 | W.PN.HOSP.TC ---
Addendum entered and electronically signed by Sheeba Strickland MD 12/14/24 12:08:
left VM for son
Original Note:
Today's Communication/Plan
-
displ planning for SNF
Assessment / Plan
Assessment / Plan
Ms. Angelia Patterson is a 84 yo woman with hx dementia, [place] resident, rheumatoid arthritis, moderate , HTN, GERD sent to the ER from wound clinic for progression of sacral wound.
Stage IV Sacral Ulcer
-appreciate General surgery - topical care recommended, no need for surgical debridement at this time.
-patient will need SNF for PT and proper wound care - discussed with patient this morning
-post acute infectious component treatment, will need to follow up for plastic surgery evaluation
RA
chronic pain, opiate dependence
-patient is on standing 15mg oxycodone at home
-I have made oxycodone PRN 5/10mg here and she seems to be tolerating
Moderate
Essential HTN
-BP low/normal here, hold SUPERVISOR RESEARCH SHOP Metoprolol, Lisinopril
GERD - SUPERVISOR RESEARCH SHOP Protonix
DVT PPx Lovenox subQ
FULL CODE
Anticipated Discharge: 24 - 48 hours
Subjective/Interval History
-
Date of Service: December 14, 2024
denies pain
Objective Data
-
Labs:
Laboratory Results
12/14/24
05:41
WBC 7.8
Hgb 8.3 L
Hct 25.3 L
Plt Count 337
Sodium 136
Potassium 4.5
Chloride 101
Carbon Dioxide 29
BUN 13
Creatinine 0.5 L
Glucose 91
Calcium 9.9
Vital Signs:
Vital Signs
Temp Pulse Resp BP Pulse Ox
98.1 F 93 16 112/72 98
12/13/24 23:07 12/13/24 23:07 12/13/24 23:07 12/13/24 23:07 12/13/24 23:07
I&O
12/13/24 12/14/24 12/15/24
06:59 06:59 06:59
Intake Total 480 / 480 200 / 200
Balance 480 / 480 200 / 200
Review of Systems
-
History Source: Patient
All other systems: Reviewed and negative
Physical Exam
-
General: Other (frail appearing)
HEENT: PERRLA
Respiratory: Clear to Auscultation; Negative Wheezes
Cardiac: Regular Rhythm and S1/S2
GI: Soft and Nontender
Musculoskeletal: No Edema
Skin: Other (stage IV sacral wound without drainage)
Neuro: Awake and Alert
Psych: Calm
Data Reviewed
-
Diagnostic Radiology: Report Reviewed by me
Labs: Labs Reviewed by me
[2024-12-14] MEDS: CRESTOR 10 MG PO (10:05)
[2024-12-14] MEDS: ROXICODONE 5 MG PO ×2 (10:10→17:38)
[2024-12-14] MEDS: WELLBUTRIN REGULAR RELEASE 100 MG PO (10:53)
[2024-12-14 15:30] VITALS: BP 108/66
[2024-12-14] MEDS: LOVENOX 40 MG SC (17:33)
[2024-12-14] MEDS: CELEBREX 200 MG PO (19:46)
[2024-12-14 23:07] VITALS: BP 96/47
[2024-12-15] MEDS: DILAUDID 0.25 MG IV (04:03)
[2024-12-15 06:05] LABS: Hemoglobin 8.1 g/dL (12.0-16.0); Mean Corp Hgb Conc. 33.8 g/dL (33.0-37.0); Mean Corpuscular Hgb 28.3 pg (27.0-31.0); Mean Corpuscular Volume 83.9 fL (81.0-99.0); Mean Platelet Volume 9.6 fL (7.4-10.4); Platelet Count 309 10^3/uL (130-400); Red Blood Cell Count 2.86 10^6/uL (4.20-5.40)
[2024-12-15 06:47] LABS: Blood Urea Nitrogen 16 mg/dl (7-17); Calcium 9.7 mg/dl (8.4-10.2); Carbon Dioxide 25 mmol/L (22-30); Chloride 100 mmol/L (98-107); Estimated Creatinine Clearance 49 ml/min; Glucose 90 mg/dl (70-99); Potassium 4.5 mmol/L (3.5-5.1); Sodium 133 mmol/L (135-145); eGFR > 60.00
--- NOTE | 2024-12-15 07:01 | W.PN.HOSP.TC ---
Today's Communication/Plan
-
dispo planning for SNF
appreciate GS and Wound Care
Assessment / Plan
Assessment / Plan
Ms. Angelia Patterson is a 84 yo woman with hx dementia, [place] resident, rheumatoid arthritis, moderate , HTN, GERD sent to the ER from wound clinic for progression of sacral wound.
Stage IV Sacral Ulcer
-appreciate General surgery - topical care recommended, no need for surgical debridement at this time.
-patient will need SNF for PT and proper wound care - discussed with patient and CM this morning
-post acute infectious component treatment, will need to follow up with Dr. Linn and possibly with plastic surgery evaluation
RA
chronic pain, opiate dependence
-patient is on standing 15mg oxycodone at home
-I have made oxycodone PRN 5/10mg here and she seems to be tolerating
Moderate
Essential HTN
-BP low/normal here, hold SHOPPING INSPECTOR Metoprolol, Lisinopril
GERD - SHOPPING INSPECTOR Protonix
Underweight
-appreciate dietary
DVT PPx Lovenox subQ
FULL CODE
Anticipated Discharge: 24 - 48 hours
Subjective/Interval History
-
Date of Service: December 15, 2024
feeling better today
no active complaints
Objective Data
-
Labs:
Laboratory Results
12/15/24
04:09
WBC 7.0
Hgb 8.1 L
Hct 24.0 L
Plt Count 309
Sodium 133 L
Potassium 4.5
Chloride 100
Carbon Dioxide 25
BUN 16
Creatinine 0.5 L
Glucose 90
Calcium 9.7
Vital Signs:
Vital Signs
Temp Pulse Resp BP Pulse Ox
98.3 F 96 16 96/47 98
12/14/24 23:07 12/14/24 23:07 12/14/24 23:07 12/14/24 23:07 12/14/24 23:07
I&O
12/14/24 12/15/24 12/16/24
06:59 06:59 06:59
Intake Total 200 / 200 240 / 240
Balance 200 / 200 240 / 240
Review of Systems
-
History Source: Patient
All other systems: Reviewed and negative
Physical Exam
-
General: Other (frail appearing)
HEENT: PERRLA
Respiratory: Clear to Auscultation; Negative Wheezes
Cardiac: Regular Rhythm and S1/S2
GI: Soft and Nontender
Musculoskeletal: No Edema
Skin: Other (stage IV sacral wound without drainage)
Neuro: Awake and Alert
Psych: Calm
Data Reviewed
-
Diagnostic Radiology: Report Reviewed by me
Labs: Labs Reviewed by me
[2024-12-15 07:15] VITALS: BP 117/71
[2024-12-15] MEDS: ROXICODONE 10 MG PO ×3 (08:13→20:26)
[2024-12-15] MEDS: PROTONIX 40 MG PO (08:13)
[2024-12-15] MEDS: LOW STRENGTH ASPIRIN 81 MG PO (08:13)
[2024-12-15] MEDS: CELEBREX 200 MG PO ×2 (08:13→20:22)
[2024-12-15] MEDS: WELLBUTRIN REGULAR RELEASE 100 MG PO (08:13)
[2024-12-15] MEDS: CRESTOR 10 MG PO (08:13)
[2024-12-15] MEDS: LIDOCAINE 4% PATCH 1 PATCH TOPICAL (08:14)
[2024-12-15] MEDS: DAKIN'S SOLUTION 0.125% 1/4 STRENGTH 473 ML TOPICAL (08:15)
[2024-12-15] MEDS: TYLENOL 650 MG PO (10:55)
[2024-12-15 15:10] VITALS: BP 116/65
--- NOTE | 2024-12-15 15:36 | CM ---
CM following re: discharge planning.
Reviewed pt's chart, met with pt, discussed with MD and RN.
PT and OT evaluations noted - SNF level of care recommended. pt is aware, expressed her agreement and pt requested [facility] SNF.
A referral to [facility] made. Awaiting for determination.
D/C plan: [facility]
CM will follow with discharge plan updates as hospitalization progresses
[2024-12-15] MEDS: LOVENOX 40 MG SC (17:22)
[2024-12-15] MEDS: DAKIN'S SOLUTION 0.125% 1/4 STRENGTH 1 ML TOPICAL (20:22)
[2024-12-15 23:00] VITALS: BP 121/65
[2024-12-16] VITALS (8 sets, daily range): BP systolic 101–127; BP diastolic 33–77; PULSE 123; O2SAT 98
[2024-12-16] MEDS: ROXICODONE 5 MG PO ×2 (05:42→13:31)
[2024-12-16] MEDS: CELEBREX 200 MG PO ×2 (07:43→21:13)
[2024-12-16] MEDS: LOW STRENGTH ASPIRIN 81 MG PO (07:43)
[2024-12-16] MEDS: LIDOCAINE 4% PATCH 1 PATCH TOPICAL (07:43)
[2024-12-16] MEDS: PROTONIX 40 MG PO (07:43)
[2024-12-16] MEDS: WELLBUTRIN REGULAR RELEASE 100 MG PO (07:43)
[2024-12-16] MEDS: DAKIN'S SOLUTION 0.125% 1/4 STRENGTH 1 ML TOPICAL (07:44)
[2024-12-16] MEDS: CRESTOR 10 MG PO (07:45)
[2024-12-16] MEDS: DILAUDID 0.25 MG IV ×2 (08:05→21:18)
[2024-12-16] MEDS: ROXICODONE 10 MG PO ×2 (10:07→18:17)
--- NOTE | 2024-12-16 11:06 | W.PN.HOSP.TC ---
Today's Communication/Plan
-
pre-casas wound culture noted-contact precaution
ID input
eventual SNF
Assessment / Plan
Assessment / Plan
Ms. Angelia Patterson is a 84 yo woman with hx dementia, [place] resident, rheumatoid arthritis, moderate , HTN, GERD sent to the ER from wound clinic for progression of sacral wound.
Stage IV Sacral Ulcer
-appreciate General surgery - topical care recommended, no need for surgical debridement at this time.
-patient will need SNF for PT and proper wound care - discussed with patient and CM this morning
-post acute infectious component treatment, will need to follow up with Dr. Linn and possibly with plastic surgery evaluation
-wound culture taken on 12/13 with ESBL. WBC normal. unclear if colonization. Will ask ID for input as no plan for surgery noted. Unclear if requires suppressive antibiotics or not. Culture with severe resistance to antibiotics noted.
RA
chronic pain, opiate dependence
-patient is on standing 15mg oxycodone at home
- oxycodone PRN 5/10mg here and she seems to be tolerating
Moderate
Essential HTN
-BP low/normal here, hold BINDING PRINTER Metoprolol, Lisinopril
GERD - BINDING PRINTER Protonix
Underweight
-appreciate dietary
DVT PPx Lovenox subQ
FULL CODE
PTOT-SNF. CM aware.
Anticipated Discharge: 24 - 48 hours
Subjective/Interval History
-
Date of Service: December 16, 2024
states of back pain/sacral pain after ambulating earlier today
Objective Data
-
Vital Signs:
Vital Signs
Temp Pulse Resp BP Pulse Ox
97.7 F 117 16 101/60 97
12/16/24 10:41 12/16/24 10:41 12/16/24 10:41 12/16/24 10:41 12/16/24 10:41
I&O
06/12/16/24 12/17/24
06:59 06:59 06:59
Intake Total 240 / 240 60 60
Output Total
Balance 240 / 240
Physical Exam
-
General: Other (frail appearing)
HEENT: Normocephalic, Atraumatic and Moist Mucous Membranes
Respiratory: Clear to Auscultation; Negative Wheezes
Cardiac: Regular Rhythm and S1/S2
GI: Soft and Nontender
Musculoskeletal: No Edema
Skin: Other (stage IV sacral wound without drainage)
Neuro: Awake and Alert
Psych: Calm
Data Reviewed
-
Total Time Spent with Patient (in minutes): 55
--- NOTE | 2024-12-16 11:30 | W.PN.GS2 ---
Today's Communication / Plan
-
Continue wound care: Daktigist's wet-to-dry, offload as able
Assessment / Plan
-
This is an 84-year-old female with a stage IV sacral wound. Stable
Follow-up wound cultures, can narrow antibiotics as able.
Continue wound care Trenain's wet-to-dry, Offload as able
Wound care.
High-protein diet.
Patient to follow-up with Dr. Landis.
Surgery will sign off for now, please call with any questions or concerns.
Time Spent
Total Time Spent with Patient (in minutes): 35
Subjective Data
-
Date of Service: December 16, 2024
Interval Events:
No acute events overnight. Slept well. Pain Controlled. Denies Nausea/Vomiting. Tolerating diet.
Objective Data
-
Intake and Output
12/15/24 12/16/24 12/17/24
06:59 06:59 06:59
Intake Total 240 / 240 60 / 60
Output Total 1 /
Balance 240 / 240 59 / 59
Intake:
Oral fluids 240 / 240 60 / 60
Output:
Urine, Gonzalez 1 /
Other:
Number of approximated SMALL 2
amounts of urine
Number of approximated MODERATE 1 1
amounts of urine
How many times incontinent 1
SMALL amount urine
Vital Signs
Temp Pulse Resp BP Pulse Ox
97.7 F 117 16 101/60 97
12/16/24 10:41 12/16/24 10:41 12/16/24 10:41 12/16/24 10:41 12/16/24 10:41
Lab Results
12/15/24 04:09
12/15/24 04:09
Calcium 9.7 mg/dl (8.4-10.2) 12/15/24 04:09
Total Bilirubin 0.4 mg/dl (0.2-1.3) 12/12/24 16:27
AST 21 U/L (14-36) 12/12/24 16:27
ALT < 10 U/L (0-35) 12/12/24 16:27
Alkaline Phosphatase 31 U/L (38-126) L 12/12/24 16:27
Total Protein 6.7 g/dl (6.3-8.2) 12/12/24 16:27
Albumin 3.6 g/dl (3.5-5.0) 12/12/24 16:27
Physical Exam
-
Buttock: She has a stage IV circular sacral wound that measures roughly 5 cm in diameter with some undermining and slough noted. No active disease over undrained collection. Packing removed and replaced.
Patient has a gonzalez catheter: No
Patient has a central line: No
[2024-12-16] MEDS: MERREM 500 MG IV ×2 (13:32→21:13)
[2024-12-16] MEDS: STERILE WATER FOR INJECTION 10 ML IV ×2 (13:32→21:15)
--- NOTE | 2024-12-16 13:57 | CM ---
CM reviewed pt with Dr Perez
Pt with positive cultures and awaiting outcome of ID consult
[facility] SNF clinically accepted over weekend- will need to send updated clinicals once appropriate
Pt WOC notes, will need air mattress
Discharge Disposition- SNF with air mattress, watch for abx needs
--- NOTE | 2024-12-16 15:38 | CON.ID ---
Consultation
-
Date/Time Consultation Requested: 12/16/2024 1110
Date/Time Consultation Performed: 12/16/2024 1530
Requesting Provider: Dr. Perez
Performing Provider: Dr. Faria
Reason for Consultation: Sacral decubiti
Chief Complaint / Past History
History of Present Illness
Angelia Patterson is an 84-year-old female being evaluated at the request of Dr. Perez regarding a sacral decubiti. History is obtained from chart review alone as the patient has a history of dementia. The patient presents to the emergency room at
[facility] on 12/12 for further evaluation of a sacral wound that had been present 'for a couple of weeks'. According to ER notes she was sent by her relocation specialist for further evaluation and management.
In the ER, the patient initially received antibiotics, but antibiotics were then held pending further evaluation by Surgery. On initial presentation there was no leukocytosis, and since admission she has remained afebrile. Superficial wound
cultures were obtained on 12/13, and now reveal polymicrobial growth, including ESBL E. coli, Enterococcus and diphtheroids. Infectious Diseases is asked to comment upon further antimicrobial therapy.
Patient reports no prior fevers or chills. She notes the area does cause her discomfort. She denies chest pain or shortness of breath. Denies abdominal pain, nausea or vomiting.
Past History
Additional Past Medical History:
Arrhythmia
CAD
HTN
Dementia
RA
Anemia
Pulmonary hypertension
Additional Past Surgical History:
Bilateral knee replacement
Left shoulder surgery
Allergy History:
No Known Allergies Allergy (Unverified 10/09/23 20:43)
Medications Reviewed: Yes
Current Antibiotics:
Meropenem 500 mg IV every 8 hours
Social History
Tobacco: Non-Smoker
Alcohol: None
Drug: None
Personal:
Living: Assisted Living (with )
Employment: Retired
Family History
Family History: Not Pertinent
Review of Systems
Vital Signs
Temp Pulse Resp BP Pulse Ox
98.5 F 99 17 110/64 98
12/16/24 14:50 12/16/24 15:35 12/16/24 14:50 12/16/24 15:35 12/16/24 14:50
Physical Exam
Physical Exam
Constitutional: Comfortable, Chronically Ill, Non-toxic and Cachetic (mild)
Eyes: No Conjunctival Hemorrhage and Sclera Anicteric
Cardiovascular: S1/S2; Negative S3/S4
Pulmonary: Non Labored
Gastrointestinal: Soft, Non Tender and Non Distended
Genito-Urinary: Negative Hawley
Extremities: Negative Edema, Cyanosis or Erythema
Wound: Other (Stage 4 sacral wound. Packing in place (Dakins). Little/no surrounding erythema)
Neurological: Awake and Alert
Psychological: Calm
Lab / Diagnostic Study Results
12/15/24 04:09
12/15/24 04:09
Abs Immat Gran (auto) 0.0 10^3/uL (0-0.05) 12/12/24 16:27
Absolute Neuts (auto) 6.2 10^3/uL (1.4-6.5) 12/12/24 16:27
Absolute Lymphs (auto) 1.1 10^3/uL (1.2-3.4) L 12/12/24 16:27
Absolute Monos (auto) 0.8 10^3/uL (0.1-0.6) H 12/12/24 16:27
Absolute Basos (auto) 0.1 10^3/uL (0-0.2) 12/12/24 16:27
Immature Gran % 0.2 % (0-0.5) 12/12/24 16:27
Neutrophils % 74.7 % (42.2-75.2) 12/12/24 16:27
Lymphocytes % 13.2 % (20.5-51.1) L 12/12/24 16:27
Monocytes % 9.4 % (1.7-9.3) H 12/12/24 16:27
Eosinophils % 1.9 % (0-6) 12/12/24 16:27
Basophils % 0.6 % (0-2) 12/12/24 16:27
Microbiology Results
Micro:
12/13/24 10:58 Wound Culture - Preliminary
Sacral Escherichia coli - ESBL
Enterococcus species
Gram Stain - Preliminary
12/13/24 06:37 MRSA Screen - Final
Nose No Methicillin Resistant Staphylococcus aureus isolated.
Imaging:
11/18/2024 Plain film sacrum/coccyx: No radiographic evidence for osseous destruction or abnormal periosteal reaction to suggest acute osteomyelitis. Bones appear diffusely demineralized. Small bilateral sacroiliac joint osteophytes noted. Severe
multilevel lower lumbar discogenic degenerative disc disease noted. Please see full dictation for additional detail.
Assessment / Plan
Sacral decubiti (stage IV)
Arrhythmia
CAD
HTN
Dementia
RA
Anemia
Pulmonary hypertension
CAD
Recommendations:
Continue with local care to the wound area, including the use of Dakin's solution
At present, not clear if systemic antibiotic therapy is warranted. Wound culture was superficial, and likely reflects colonization rather than true infection.
Patient is without systemic symptomatology (no fevers, no leukocytosis or left shift).
Will continue with meropenem for now, at least to decrease overall wound bioburden. Would not anticipate antibiotics longer than 3 to 5 days.
Monitor white count and temperature curve.
Given wound size and undermining, healing will be difficult. Continue to offload. Maximize nutritional status. May benefit from OP Plastic eval
[2024-12-16] MEDS: NSS 1000 IV (16:09)
[2024-12-16] MEDS: LOVENOX 40 MG SC (18:02)
[2024-12-16] MEDS: DAKIN'S SOLUTION 0.125% 1/4 STRENGTH 473 ML TOPICAL (21:15)
[2024-12-17] MEDS: LOPRESSOR 2.5 MG IV (00:56)
--- NOTE | 2024-12-17 01:02 | W.PN.UPDATE ---
Update Note
Progress Note Update
RN reported patient HR 100's- 140's, highest 157, EKG noted. 98.5, 110/60 98% 18, Patient seen and evaluated, on phone with family, HR tachycardiac, + Murmur, lungs clear, denies feeling shortness of breath, chest pain or palpitations, sacral wound
dressing changed by the RN with no bleeding. will draw labs, Metoprolol 2.5mg IVx1.
HR 94-120's. lab results noted. continue IV fluids.
[2024-12-17 01:06] LABS: Hematocrit 26.4 % (37.0-47.0); Hemoglobin 8.7 g/dL (12.0-16.0); Mean Corpuscular Volume 84.9 fL (81.0-99.0); Mean Platelet Volume 8.6 fL (7.4-10.4); Platelet Count 319 10^3/uL (130-400); Red Blood Cell Count 3.11 10^6/uL (4.20-5.40); Red Cell Dist. Width 14.3 % (11.5-14.5); White Blood Cell Count 9.4 10^3/uL (4.8-10.8)
[2024-12-17 01:24] LABS: Blood Urea Nitrogen 22 mg/dl (7-17); Calcium 9.7 mg/dl (8.4-10.2); Carbon Dioxide 23 mmol/L (22-30); Chloride 102 mmol/L (98-107); Estimated Creatinine Clearance 49 ml/min; Glucose 105 mg/dl (70-99); Potassium 4.6 mmol/L (3.5-5.1); Sodium 133 mmol/L (135-145); eGFR > 60.00
[2024-12-17] MEDS: DILAUDID 0.25 MG IV (03:40)
[2024-12-17 03:41] VITALS: BP 91/57
[2024-12-17] MEDS: MERREM 500 MG IV ×3 (06:39→22:14)
[2024-12-17] MEDS: STERILE WATER FOR INJECTION 10 ML IV ×3 (06:40→22:15)
[2024-12-17 07:05] VITALS: BP 120/98
[2024-12-17 07:52] LABS: Blood Urea Nitrogen 19 mg/dl (7-17); Calcium 9.5 mg/dl (8.4-10.2); Carbon Dioxide 27 mmol/L (22-30); Chloride 101 mmol/L (98-107); Estimated Creatinine Clearance 49 ml/min; Glucose 86 mg/dl (70-99); Potassium 4.6 mmol/L (3.5-5.1); Sodium 133 mmol/L (135-145); eGFR > 60.00
[2024-12-17] MEDS: TOPROL XL 25 MG PO (08:50)
[2024-12-17] MEDS: CELEBREX 200 MG PO (08:51)
[2024-12-17] MEDS: WELLBUTRIN REGULAR RELEASE 100 MG PO (08:51)
[2024-12-17] MEDS: LIDOCAINE 4% PATCH 1 PATCH TOPICAL (08:51)
[2024-12-17] MEDS: PROTONIX 40 MG PO (08:51)
[2024-12-17] MEDS: CRESTOR 10 MG PO (08:51)
[2024-12-17] MEDS: LOW STRENGTH ASPIRIN 81 MG PO (08:51)
[2024-12-17] MEDS: DAKIN'S SOLUTION 0.125% 1/4 STRENGTH 1 ML TOPICAL (08:51)
[2024-12-17] MEDS: ROXICODONE 10 MG PO (08:53)
--- NOTE | 2024-12-17 08:58 | PTCARENOTE ---
Pt with HR back up into 150s asymptomatic this AM, made aware, toprol ordered and administered. Pt with c/o 9/10 spinal pain as well, sohan 10mg administered. Pt assisted back to bed with this RN, no new orders at this time.
[2024-12-17 11:05] VITALS: BP 112/74
--- NOTE | 2024-12-17 11:39 | W.PN.HOSP.TC ---
Today's Communication/Plan
-
adjust pain medication regimen
Brief course of antibiotic
Restart beta-blockers
Monitor blood pressure
Start disposition
Assessment / Plan
Assessment / Plan
General: Other (frail appearing)
HEENT: Normocephalic, Atraumatic and Moist Mucous Membranes
Respiratory: Clear to Auscultation; Negative Wheezes
Cardiac: Regular Rhythm and S1/S2, tachycardoa
GI: Soft and Nontender
Musculoskeletal: No Edema
Skin: Other (stage IV sacral wound without drainage)
Neuro: Awake and Alert
Psych: Calm
Ms. Angelia Patterson is a 84 yo woman with hx dementia, [place] resident, rheumatoid arthritis, moderate , HTN, GERD sent to the ER from wound clinic for progression of sacral wound.
Stage IV Sacral Ulcer
-appreciate General surgery - topical care recommended, no need for surgical debridement at this time.
-patient will need SNF for PT and proper wound care - discussed with patient and CM this morning
-post acute infectious component treatment, will need to follow up with Dr. Linn and possibly with plastic surgery evaluation
-wound culture taken on 12/13 with ESBL. WBC normal. unclear if colonization. Will ask ID for input as no plan for surgery noted. Unclear if requires suppressive antibiotics or not. Culture with severe resistance to antibiotics noted.
-ID correspondence noted and plan for brief antibiotic course.
RA
chronic pain, opiate dependence
-patient is on standing 15mg oxycodone at home q6h
-Checking PDMP status patient has been on chronic opioid pain medication regimen.
-Restart patient on oxycodone 15 mg twice daily and additional twice daily as needed to max her home regimen.
Moderate
Essential HTN with tachycardia
-restart toprol. prn lopressor added too
-?tachycardia pain driven vs. mild withdrawal as pain meds were adjusted on admit.
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
Underweight
-appreciate dietary
DVT PPx Lovenox subQ
FULL CODE
PTOT-SNF. CM aware.
Anticipated Discharge: 24 - 48 hours
Subjective/Interval History
-
Date of Service: December 17, 2024
remains with sacral pain
Objective Data
-
Labs:
Laboratory Results
12/17/24 12/17/24
00:53 05:49
WBC 9.4
Hgb 8.7 L
Hct 26.4 L
Plt Count 319
Sodium 133 L 133 L
Potassium 4.6 4.6
Chloride 102 101
Carbon Dioxide 23 27
BUN 22 H 19 H
Creatinine 0.5 L 0.5 L
Glucose 105 H 86
Calcium 9.7 9.5
Vital Signs:
Vital Signs
Temp Pulse Resp BP Pulse Ox
98.1 F 168 20 120/90 99
12/17/24 07:05 12/17/24 08:59 12/17/24 07:05 12/17/24 08:50 12/17/24 11:28
I&O
12/16/24 12/17/24 12/18/24
06:59 06:59 06:59
Intake Total 60 / 60
Output Total
Balance 59 / 59
Data Reviewed
-
Total Time Spent with Patient (in minutes): 55
--- NOTE | 2024-12-17 12:07 | PTCARENOTE ---
Pt with HR still consistently in 130s, made aware, PRN IV lopressor added to MAR and administered. PRN sohan increased and scheduled dose added, scheduled dose administered.
[2024-12-17] MEDS: ROXICODONE 15 MG PO ×2 (12:18→23:52)
[2024-12-17] MEDS: LOPRESSOR 5 MG IV (12:19)
--- NOTE | 2024-12-17 12:46 | W.PN.ID1 ---
Date of Service
Date of Service: December 17, 2024
Today's Communication
Continue antibiotics.
Assessment / Plan
Sacral decubiti (stage IV)
Arrhythmia
CAD
HTN
Dementia
RA
Anemia
Pulmonary hypertension
CAD
Recommendations:
Continue with local care to the wound area, including the use of Dakin's solution
Wound culture was superficial, and likely reflects colonization rather than true infection.
Patient is without systemic symptomatology (no fevers, no leukocytosis or left shift).
Will continue with meropenem (d#2) for now, at least to decrease overall wound bioburden. Would not anticipate antibiotics longer than 3 to 5 days.
Monitor white count and temperature curve.
Given wound size and undermining, healing will be difficult.
Continue to offload. Maximize nutritional status.
May benefit from OP Plastic eval
����������������������������������������������������������
Chief Complaint
-: Other (Sacral wound.)
Subjective / Review of Systems
Patient seen and examined. Notes ongoing sacral discomfort. Nursing attempting to offload area. Currently using air waffle
Review of Systems: No Fever and No Chills
Vital Signs / Physical Exam
Vital Signs
Vital Signs
Temp Pulse Resp BP Pulse Ox
97.5 F 135 18 112/74 99
12/17/24 11:05 12/17/24 12:19 12/17/24 11:05 12/17/24 11:05 12/17/24 11:28
Physical Exam
Constitutional: No Acute Distress, Comfortable, Chronically Ill and Non-toxic
Cardiovascular: S1/S2; Negative S3/S4
Pulmonary: Non Labored
Gastrointestinal: Soft and Non Distended
Wound: Other (Sacral wound dressed.)
Neurological: Awake and Alert
Psychological: Calm
Objective Data
Lab Data
Lab Results
12/17/24 00:53
12/17/24 05:49
Estimated Creat Clear 49 ml/min 12/17/24 05:49
Total Bilirubin 0.4 mg/dl (0.2-1.3) 12/12/24 16:27
AST 21 U/L (14-36) 12/12/24 16:27
ALT < 10 U/L (0-35) 12/12/24 16:27
Alkaline Phosphatase 31 U/L (38-126) L 12/12/24 16:27
Most recent labs reviewed.
Micro Results:
12/13/24 10:58 Wound Culture - Final
Sacral Escherichia coli - ESBL
Enterococcus faecalis
Gram Stain - Final
12/13/24 06:37 MRSA Screen - Final
Nose No Methicillin Resistant Staphylococcus aureus isolated.
Imaging:
11/18/2024 Plain film sacrum/coccyx: No radiographic evidence for osseous destruction or abnormal periosteal reaction to suggest acute osteomyelitis. Bones appear diffusely demineralized. Small bilateral sacroiliac joint osteophytes noted. Severe
multilevel lower lumbar discogenic degenerative disc disease noted. Please see full dictation for additional detail.
Care Review
Plan reviewed with: Nurse
--- NOTE | 2024-12-17 14:03 | CM ---
Reviewed the chart notes and spoke with the patient and her [id number] at the bedside. Updated patient that CM spoke with Gabrielle with [facility]. Per Gabrielle, no anticipated discharges from facility this week. Permission received to send
additional referrals. Additional referrals sent via [facility]. CM continues to be available to patient/family and is monitoring medical plan for needs at discharge.
Plan: Discharge to SNF when medically stable and bed secured. No precert required.
[2024-12-17 15:05] VITALS: BP 92/55
[2024-12-17] MEDS: LOVENOX 40 MG SC (17:05)
[2024-12-17 19:20] VITALS: BP 105/57
[2024-12-17] MEDS: ROXICODONE PO ×2 (20:56→22:40)
[2024-12-17] MEDS: CELEBREX PO ×2 (20:56→22:40)
[2024-12-17] MEDS: DAKIN'S SOLUTION 0.125% 1/4 STRENGTH 473 ML TOPICAL (20:57)
[2024-12-17 23:02] VITALS: BP 103/57
[2024-12-18] VITALS (8 sets, daily range): BP systolic 96–104; BP diastolic 57–66; PULSE 94
[2024-12-18] MEDS: STERILE WATER FOR INJECTION 10 ML IV ×2 (05:26→13:01)
[2024-12-18] MEDS: MERREM 500 MG IV ×2 (05:26→13:01)
[2024-12-18] MEDS: PROTONIX 40 MG PO (07:36)
[2024-12-18] MEDS: TOPROL XL 25 MG PO (07:36)
[2024-12-18] MEDS: CELEBREX 200 MG PO ×2 (07:36→20:21)
[2024-12-18] MEDS: WELLBUTRIN REGULAR RELEASE 100 MG PO (07:38)
[2024-12-18] MEDS: DAKIN'S SOLUTION 0.125% 1/4 STRENGTH 1 ML TOPICAL (07:39)
[2024-12-18] MEDS: ROXICODONE 15 MG PO ×3 (07:39→20:21)
[2024-12-18] MEDS: LIDOCAINE 4% PATCH 1 PATCH TOPICAL (07:39)
[2024-12-18] MEDS: LOW STRENGTH ASPIRIN 81 MG PO (07:39)
[2024-12-18] MEDS: CRESTOR 10 MG PO (08:39)
--- NOTE | 2024-12-18 08:41 | PTCARENOTE ---
BP this AM is , made aware, no new orders at this time.
--- NOTE | 2024-12-18 10:36 | PN.CDI ---
CDI
- -
CDI:
Physician Documentation Request
Admit Date: 12/12/24 18:12
Dear Doctor Chris,
Patient admitted for sacral ulcer.
Laboratory Tests
12/15/24 12/17/24 12/17/24
04:09 00:53 05:49
Sodium 133 L 133 L 133 L
Based on the above, could you clarify in the progress notes, the appropriate diagnosis, if significant, that supports the above abnormalities and additional evaluation, monitoring and/or treatment rendered:
Hyponatremia
Abnormal lab value insignificant
Other
Use of terms such as suspected, likely, concern for, or probable (associated with a specific diagnosis that is being evaluated, monitored, or treated as if it exists) are acceptable and can be coded in the inpatient setting, when documented at the
time of discharge.
Thank you,
Laly Hendricks RN, BSN
CDI Specialist
Available via [facility] text
Please use your independent medical judgment in providing your response.
--- NOTE | 2024-12-18 10:51 | W.PN.HOSP.TC ---
Addendum entered and electronically signed by Alejandro Perez MD 12/18/24 13:19:
Discussed with patient's son over the phone in details. Explained to the son the patient currently receiving antibiotics and then patient should follow-up with Dr. Linn for wound care upon discharge to see how the wound is healing. Also
recommended outpatient plastic surgery evaluation however unclear if patient is even a candidate with significantly poor nutritional status and if patient was going to be able to tolerate offloading for her wound. Son understands that. Currently
he would like patient to be returned to assisted living facility and he will work with case management to see if visiting nurses can able to change the dressing twice a day until patient can be followed up with the wound care center. Eventually son
understand that if patient is not a surgical candidate then might have to consider palliative care route for pain control. All question answered to patient's son satisfaction and he was appreciative of update.
Original Note:
Today's Communication/Plan
-
short course of IV abx
pain control
ongoing dispo-complex discharge-CM aware
Assessment / Plan
Assessment / Plan
General: Other (frail appearing)
HEENT: Normocephalic, Atraumatic and Moist Mucous Membranes
Respiratory: Clear to Auscultation; Negative Wheezes
Cardiac: Regular Rhythm and S1/S2, tachycardia improved on tele
GI: Soft and Nontender
Musculoskeletal: No Edema
Skin: Other (stage IV sacral wound without drainage)
Neuro: Awake and Alert
Psych: Calm
Ms. Angelia Patterson is a 84 yo woman with hx dementia, [place] resident, rheumatoid arthritis, moderate , HTN, GERD sent to the ER from wound clinic for progression of sacral wound.
Stage IV Sacral Ulcer
-appreciate General surgery - topical care recommended, no need for surgical debridement at this time.
-patient will need SNF for PT and proper wound care - discussed with patient and CM this morning
-post acute infectious component treatment, will need to follow up with Dr. Linn and possibly with plastic surgery evaluation
-wound culture taken on 12/13 with ESBL. WBC normal. unclear if colonization. Will ask ID for input as no plan for surgery noted. Culture with severe resistance to antibiotics noted.
-ID correspondence noted and plan for brief antibiotic course with meropenem.
RA
chronic pain, opiate dependence
-patient is on standing 15mg oxycodone at home q6h
-Checking PDMP status patient has been on chronic opioid pain medication regimen.
-Restart patient on oxycodone 15 mg twice daily and additional twice daily as needed to max her home regimen.
Moderate
Essential HTN with tachycardia
-restart toprol. prn lopressor added too. HR improved. BP noted
-?tachycardia pain driven vs. mild withdrawal as pain meds were adjusted on admit.
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
Underweight
-appreciate dietary
Mild hyponatremia
-monitor
DVT PPx Lovenox subQ
FULL CODE
PTOT-SNF. CM aware.
Anticipated Discharge: 24 - 48 hours
Subjective/Interval History
-
Date of Service: December 18, 2024
in better spirit today
states pain has improved
Objective Data
-
Vital Signs:
Vital Signs
Temp Pulse Resp BP Pulse Ox
98.5 F 99 16 98/64 97
12/18/24 07:30 12/18/24 07:30 12/18/24 07:30 12/18/24 07:30 12/18/24 08:31
I&O
12/17/24 12/18/24 12/19/24
06:59 06:59 06:59
Intake Total 340 / 340
Balance 340 / 340
--- NOTE | 2024-12-18 12:27 | CM ---
Addendum entered by Tonia Morales RN 12/18/24 13:41:
[phone] Per Goldie, their nurse will need to re-assess the patient prior to accepting back to facility. Nurse is out today, but plan is evaluation either or Monday.
Addendum entered by Tonia Morales RN 12/18/24 12:50:
CM spoke with the patient's son via telephone. Patient's son was under impression patient was sent to hospital for plastic surgery evaluation. Reviewed general surgery note with son. Patient's son would like patient to return to home at discharge
with resumption of [facility]. Per son, [facility] was seeing patient daily for wound care. Explained that patient is receiving wound care BID. Son says he will arrange for twice daily wound care with [facility] at discharge. Message left for
nurse at [facility] to discuss discharge plan.
Original Note:
Reviewed the chart notes and left a message on patient's son's phone regarding [facility] offering a bed when discharged. CM continues to be available to patient/family and is monitoring medical plan for needs at discharge.
Plan: Discharge to [facility] when medically stable. No prior auth required.
--- NOTE | 2024-12-18 13:11 | W.PN.ID1 ---
Date of Service
Date of Service: December 18, 2024
Today's Communication
Continue antibiotics. See below�
Assessment / Plan
Sacral decubiti (stage IV)
- no osteo on imaging
Arrhythmia
CAD
HTN
Dementia
RA
Anemia
Pulmonary hypertension
CAD
Recommendations:
Continue with local care to the wound area, including the use of Dakin's solution.
Wound culture was superficial, and reflects colonization rather than true infection given no systemic symptomatology (no fevers, no leukocytosis or left shift).
Will continue with meropenem (d#3 of 5) for now, at least to decrease overall wound bioburden. No need to continue antibiotics past 5 days.
Monitor white count and temperature curve.
Given wound size and undermining, healing will be difficult.
Continue to offload. Maximize nutritional status.
May benefit from outpatient plastic eval, but expect offloading will be the greatest barrier to ultimate healing.
Little more to offer from a Infectious Disease standpoint.
Will see again at your request. Please call with any questions.
����������������������������������������������������������
Chief Complaint
-: Other (Sacral wound.)
Subjective / Review of Systems
Review of Systems: No Fever and No Chills
Vital Signs / Physical Exam
Vital Signs
Vital Signs
Temp Pulse Resp BP Pulse Ox
98.3 F 96 16 104/59 97
12/18/24 11:10 12/18/24 11:10 12/18/24 11:10 12/18/24 11:10 12/18/24 11:10
Physical Exam
Constitutional: No Acute Distress, Comfortable, Chronically Ill and Non-toxic
Cardiovascular: S1/S2; Negative S3/S4
Pulmonary: Non Labored
Gastrointestinal: Soft and Non Distended
Wound: Other (Sacral wound dressed.)
Neurological: Awake and Alert
Psychological: Calm
Objective Data
Lab Data
Lab Results
12/17/24 00:53
12/17/24 05:49
Estimated Creat Clear 49 ml/min 12/17/24 05:49
Total Bilirubin 0.4 mg/dl (0.2-1.3) 12/12/24 16:27
AST 21 U/L (14-36) 12/12/24 16:27
ALT < 10 U/L (0-35) 12/12/24 16:27
Alkaline Phosphatase 31 U/L (38-126) L 12/12/24 16:27
Most recent labs reviewed.
Micro Results:
12/13/24 10:58 Wound Culture - Final
Sacral Escherichia coli - ESBL
Enterococcus faecalis
Gram Stain - Final
12/13/24 06:37 MRSA Screen - Final
Nose No Methicillin Resistant Staphylococcus aureus isolated.
Imaging:
11/18/2024 Plain film sacrum/coccyx: No radiographic evidence for osseous destruction or abnormal periosteal reaction to suggest acute osteomyelitis. Bones appear diffusely demineralized. Small bilateral sacroiliac joint osteophytes noted. Severe
multilevel lower lumbar discogenic degenerative disc disease noted. Please see full dictation for additional detail.
--- NOTE | 2024-12-18 14:39 | WOUNDNOTE ---
RIGHT LATERAL FOOT
--- NOTE | 2024-12-18 15:10 | WOUNDNOTE ---
[facility] RN NOTE: Patient visited to follow up on sacral wound. Patient medicated for pain prior to assessment and wound care. Wound continues with moderate to heavy drainage and BID wound care continues to be appropriate at the time. Wound edges
slightly macerated due to drainage. Edges appear to be filling in from 7 oclock to 12 oclock. No odor note and small amount of yellow slough noted at base of wound. Per surgery, no plan for debridement at this time. Patient was turned on a right
semi-side lying position to off-load sacrum. Heels intact and off-loaded with pillows under calves. Patient continues on turning schedule and per chart review has a fair appetite. Static air overlay properly inflated. Patient has had a dietary
consult and receives Ensure with meals TID. Spoke to RN Mags and recommended staff loosely pack wound with Dakins moistened gauze and do not over stuff wound. Will continue to follow during in-patient stay.
--- NOTE | 2024-12-18 16:11 | PTCARENOTE ---
BP this afternoon was 99/59, made aware, no new orders at this time.
[2024-12-18] MEDS: LOVENOX 40 MG SC (18:10)
[2024-12-18] MEDS: DAKIN'S SOLUTION 0.125% 1/4 STRENGTH 473 ML TOPICAL (20:22)
[2024-12-18] MEDS: MERREM IV (22:37)
[2024-12-18] MEDS: STERILE WATER FOR INJECTION IV (22:38)
[2024-12-19] VITALS (8 sets, daily range): BP systolic 92–125; BP diastolic 51–73; PULSE 89
[2024-12-19] MEDS: STERILE WATER FOR INJECTION 10 ML IV ×4 (00:05→22:18)
[2024-12-19] MEDS: MERREM 500 MG IV ×4 (00:05→22:18)
[2024-12-19] MEDS: TYLENOL 650 MG PO ×3 (02:43→18:48)
[2024-12-19 07:48] LABS: % Basophils 0.7 % (0-2); % Eosinophils 5.5 % (0-6); % Immature Granulocytes 0.4 % (0-0.5); % Lymphocytes 13.1 % (20.5-51.1); % Monocytes 9.9 % (1.7-9.3); % Neutrophils 70.4 % (42.2-75.2); Absolute Eosinophils 0.3 10^3/uL (0-0.7); Absolute Lymphocytes 0.7 10^3/uL (1.2-3.4); Absolute Monocytes 0.6 10^3/uL (0.1-0.6); Blood Urea Nitrogen 22 mg/dl (7-17); Calcium 9.6 mg/dl (8.4-10.2); Carbon Dioxide 27 mmol/L (22-30); Chloride 100 mmol/L (98-107); Estimated Creatinine Clearance 49 ml/min; Glucose 86 mg/dl (70-99); Hemoglobin 8.1 g/dL (12.0-16.0); Mean Corp Hgb Conc. 32.4 g/dL (33.0-37.0); Mean Corpuscular Hgb 27.7 pg (27.0-31.0); Mean Corpuscular Volume 85.6 fL (81.0-99.0); Mean Platelet Volume 9.1 fL (7.4-10.4); Nucleated Red Blood Cells % 0 %; Platelet Count 311 10^3/uL (130-400); Potassium 4.5 mmol/L (3.5-5.1); Red Blood Cell Count 2.92 10^6/uL (4.20-5.40); Red Cell Dist. Width 14.4 % (11.5-14.5); Sodium 133 mmol/L (135-145); White Blood Cell Count 5.7 10^3/uL (4.8-10.8); eGFR > 60.00
[2024-12-19] MEDS: CRESTOR 10 MG PO (08:22)
[2024-12-19] MEDS: LIDOCAINE 4% PATCH 1 PATCH TOPICAL (08:22)
[2024-12-19] MEDS: WELLBUTRIN REGULAR RELEASE 100 MG PO (08:22)
[2024-12-19] MEDS: TOPROL XL 25 MG PO (08:22)
[2024-12-19] MEDS: PROTONIX 40 MG PO (08:22)
[2024-12-19] MEDS: LOW STRENGTH ASPIRIN 81 MG PO (08:23)
[2024-12-19] MEDS: ROXICODONE 15 MG PO ×2 (08:24→20:54)
[2024-12-19] MEDS: CELEBREX 200 MG PO ×2 (08:26→20:54)
[2024-12-19] MEDS: DAKIN'S SOLUTION 0.125% 1/4 STRENGTH 30 ML TOPICAL (08:26)
--- NOTE | 2024-12-19 11:05 | CM ---
Addendum entered by Tonia Morales RN 12/19/24 16:23:
IMM reviewed.
Original Note:
Reviewed the chart notes and spoke with the patient's son via telephone and Jennifer nurse at [facility] by phone. Per Jennifer, they are unable to accept the patient due to wound care staging and dressing change times per day. Patient's son understands
that the next step is SNF/rehab prior to being able to return to [facility]. Discussed with the son area SNFs. Referrals updated and sent via [facility]. CM continues to be available to patient/family and is monitoring medical plan for needs at discharge.
Plan: Discharge to SNF/rehab once bed secured and patient medically stable.
--- NOTE | 2024-12-19 11:52 | W.PN.HOSP.TC ---
Today's Communication/Plan
-
await placement
IV abx while for additional 24h
monitor HR/BP
Assessment / Plan
Assessment / Plan
General: Other (frail appearing)
HEENT: Normocephalic, Atraumatic and Moist Mucous Membranes
Respiratory: Clear to Auscultation; Negative Wheezes
Cardiac: Regular Rhythm and S1/S2,
GI: Soft and Nontender
Musculoskeletal: No Edema
Skin: Other (stage IV sacral wound without drainage)
Neuro: Awake and Alert
Psych: Calm
Ms. Angelia Patterson is a 84 yo woman with hx dementia, [place] resident, rheumatoid arthritis, moderate , HTN, GERD sent to the ER from wound clinic for progression of sacral wound.
Stage IV Sacral Ulcer
-appreciate General surgery - topical care recommended, no need for surgical debridement at this time.
-patient will need SNF for PT and proper wound care - discussed with patient and CM this morning
-post acute infectious component treatment, will need to follow up with Dr. Linn and possibly with plastic surgery evaluation
-wound culture taken on 12/13 with ESBL. WBC normal. unclear if colonization. Will ask ID for input as no plan for surgery noted. Culture with severe resistance to antibiotics noted.
-ID correspondence noted and plan for brief antibiotic course with meropenem. can stop tomm.
RA
chronic pain, opiate dependence
-patient is on standing 15mg oxycodone at home q6h
-Checking PDMP status patient has been on chronic opioid pain medication regimen.
-Restart patient on oxycodone 15 mg twice daily and additional twice daily as needed to max her home regimen.
Moderate
Essential HTN with tachycardia
-restart toprol. prn lopressor added too. HR improved. BP noted
-?tachycardia pain driven vs. mild withdrawal as pain meds were adjusted on admit.
GERD - RESISTANCE WELDER Protonix
Underweight
-appreciate dietary
Mild hyponatremia
-monitor
DVT PPx Lovenox subQ
FULL CODE
PTOT-SNF. CM aware.
Anticipated Discharge: Within 24 hours
Subjective/Interval History
-
Date of Service: December 19, 2024
sitting in chair
states pain is controlled
Objective Data
-
Labs:
Laboratory Results
12/19/24
06:48
WBC 5.7
Hgb 8.1 L
Hct 25.0 L
Plt Count 311
Sodium 133 L
Potassium 4.5
Chloride 100
Carbon Dioxide 27
BUN 22 H
Creatinine 0.6
Glucose 86
Calcium 9.6
Vital Signs:
Vital Signs
Temp Pulse Resp BP Pulse Ox
98 F 87 18 106/66 97
12/19/24 11:00 12/19/24 11:00 12/19/24 11:00 12/19/24 11:00 12/19/24 11:00
I&O
12/18/24 12/19/24 12/20/24
06:59 06:59 06:59
Intake Total 340 / 340 650 / 650
Balance 340 / 340 650 / 650
--- NOTE | 2024-12-19 12:06 | PN.CDI ---
CDI
- -
CDI:
Physician Documentation Request
Admit Date: 12/12/24 18:12
Dear Doctor Chris,
Patient admitted for pressure ulcer.
12/18 Cerner Analyst Assessment:RD able to observe appearance of multiple site fat/muscle loss including severe orbital/hollow, deltoids, clavicle, triceps, calf and moderate rib cage. Due to NFPE (nutrition focused physical exam), pt meeting
criteria for severe protein/calorie malnutrition (ASPEN/AND guidelines, chronic illness)
Based on the above information and your assessment, which of the following most accurately represents the patient's nutritional status?
Severe protein calorie malnutrition
Other
Austin Criteria ([facility] Hospitalist 2017)
2 or more criteria must be present for either
non severe or severe malnutrition
Note that the criteria differs related to the
presence of an acute or chronic illness
Acute Illness Chronic Illness
Energy Intake Non Severe: <75% for >7 days Non Severe: <75% for >1 month
Severe: <50% for >5 days Severe: <75% for >1 month
Weight Loss Non Severe: 1-2% over 1 week Non Severe: 5% over 1 month
5% over 1 month 7.5% over 3 months
7.5% over 3 months 10% over 6 months
1 year N/A 20% over 1 year
Severe: >2% over 1 week Severe: >5% over 1 month
>5% over 1 month >7.5% over 3 months
>7.5% over 3 months >10% over 6 months
1 year N/A >20% over 1 year
Body Fat Non Severe: Mild Decrease Non Severe: Mild Loss
Severe: Moderate Decrease Severe: Severe Loss
Muscle Mass Non Severe: Mild Decrease Non Severe: Mild Loss
Severe: Moderate Decrease Severe: Severe Loss
Fluid Accumulation Non Severe: Mild Accumulation Non Severe: Mild Accumulation
Severe: Moderate to severe Severe: Moderate to severe
accumulation accumulation
Reduced Field Application Engineer Strength Non Severe: N/A Non Severe: N/A
Severe: Measurably reduced Severe: Measurably reduced
Additional criteria that can be used to Determine if Mild or Moderate Malnutrition (Merck Manual 2018)
Mild Moderate Severe
Albumin gm/dl <3.0 gm/dl <2.5 gm/dl <2.0 gm/dl
Pre Albumin mg/dl <15 gm/dl <10 mg/dl <5.0 mg/dl
BMI <18.5 <17 <16
Use of terms such as suspected, likely, concern for, or probable (associated with a specific diagnosis that is being evaluated, monitored, or treated as if it exists) are acceptable and can be coded in the inpatient setting, when documented at the
time of discharge.
Thank you,
Laly Hendricks RN, BSN
CDI Specialist
Available via [facility] text
Please use your independent medical judgment in providing your response.
--- NOTE | 2024-12-19 16:33 | PTCARENOTE ---
Patient OOB with assist x1 and walker. Patient has slow, steady, shuffling gait. Patient tolerated 100% of breakfast, but refused lunch. Patient c/o buttocks and sacrum burning when in bed. Patient repositioned to the side and had some relief.
Patient is more comfortable sitting in chair. Tylenol given with good relief.
[2024-12-19] MEDS: LOVENOX 40 MG SC (17:44)
[2024-12-19] MEDS: DAKIN'S SOLUTION 0.125% 1/4 STRENGTH 473 ML TOPICAL (20:54)
[2024-12-19] MEDS: DESYREL 12.5 MG PO (22:18)
--- NOTE | 2024-12-19 23:08 | PTCARENOTE ---
At approximately 2130, patient notified RN that her heart was racing and that she was having trouble catching her breath. Patient stated she was feeling anxious and missing her family. Emotional support provided to patient. Temp 97.9, HR 94, BP
125/65, RR 22 and POX 99% on room air. ECG obtained. CLERICAL INVESTIGATOR notified and forwarded ECG. One time dose of Desyrel ordered and administered - see AUG.
[2024-12-20 03:34] VITALS: BP 105/64
[2024-12-20] MEDS: TYLENOL 650 MG PO ×2 (03:35→15:00)
[2024-12-20] MEDS: STERILE WATER FOR INJECTION 10 ML IV ×2 (06:09→14:43)
[2024-12-20] MEDS: MERREM 500 MG IV ×2 (06:09→14:43)
[2024-12-20 07:35] VITALS: BP 100/62
[2024-12-20] MEDS: WELLBUTRIN REGULAR RELEASE 100 MG PO (07:52)
[2024-12-20] MEDS: PROTONIX 40 MG PO (07:52)
[2024-12-20] MEDS: TOPROL XL 25 MG PO (07:52)
[2024-12-20] MEDS: ROXICODONE 15 MG PO ×2 (07:52→19:14)
[2024-12-20] MEDS: CRESTOR 10 MG PO (07:53)
[2024-12-20] MEDS: LIDOCAINE 4% PATCH 1 PATCH TOPICAL (07:53)
[2024-12-20] MEDS: CELEBREX 200 MG PO (07:53)
[2024-12-20] MEDS: LOW STRENGTH ASPIRIN 81 MG PO (07:54)
[2024-12-20] MEDS: DAKIN'S SOLUTION 0.125% 1/4 STRENGTH 30 ML TOPICAL (07:54)
--- NOTE | 2024-12-20 09:10 | CM ---
Reviewed the chart notes. CM left message for patient's son Sha regarding potential discharge today and that [facility] has a bed to offer the patient today. [facility] had offered a bed as well, but had to revoke due to one of their community
members needing the bed. Awaiting call back from patient's son. CM continues to be available to patient/family and is monitoring medical plan for needs at discharge.
Plan: Discharge to [facility] once patient's son returns CM calls to confirm discharge with him.
[2024-12-20 10:20] VITALS: BP 107/64; PULSE 90
[2024-12-20 11:00] VITALS: BP 103/65
--- NOTE | 2024-12-20 11:27 | W.PN.HOSP.TC ---
Today's Communication/Plan
-
await placement
Assessment / Plan
Assessment / Plan
General: Other (frail appearing)
HEENT: Normocephalic, Atraumatic and Moist Mucous Membranes
Respiratory: Clear to Auscultation; Negative Wheezes
Cardiac: Regular Rhythm and S1/S2,
GI: Soft and Nontender
Musculoskeletal: No Edema
Skin: Other (stage IV sacral wound without drainage)
Neuro: Awake and Alert
Psych: Calm
Ms. Angelia Patterson is a 84 yo woman with hx dementia, [place] resident, rheumatoid arthritis, moderate , HTN, GERD sent to the ER from wound clinic for progression of sacral wound.
Stage IV Sacral Ulcer
-appreciate General surgery - topical care recommended, no need for surgical debridement at this time.
-patient will need SNF for PT and proper wound care - discussed with patient and CM this morning
-post acute infectious component treatment, will need to follow up with Dr. Linn and possibly with plastic surgery evaluation. However unclear if patient is can be able to tolerate surgery and offloading. And also question if patient is
surgical candidate for severely poor nutrition status. This was all discussed with patient's son.
-wound culture taken on 12/13 with ESBL. WBC normal. unclear if colonization. Will ask ID for input as no plan for surgery noted. Culture with severe resistance to antibiotics noted.
-ID correspondence noted and plan for brief antibiotic course with meropenem. can stop later today.
RA
chronic pain, opiate dependence
-patient is on standing 15mg oxycodone at home q6h
-Checking PDMP status patient has been on chronic opioid pain medication regimen.
-Restart patient on oxycodone 15 mg twice daily and additional twice daily as needed to max her home regimen.
Moderate
Essential HTN with tachycardia
-restart toprol. prn lopressor added too. HR improved. BP noted
-?tachycardia pain driven vs. mild withdrawal as pain meds were adjusted on admit. HR improved
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
Underweight
-appreciate dietary
Mild hyponatremia
-monitor
Severe protein caloric malnutrition of chronic illness
Liberalize diet
Dietary following
DVT PPx Lovenox subQ
FULL CODE
PTOT-SNF. CM aware. medically stable for dc. Has bed at SNF. Awaiting family response. d/w wtih Cm
More than 30 minutes spent in discharge including
Final examination of the patient
Summarizing hospital stay
Instructions for continuing care to all relevant caregivers
Preparation of discharge records, prescriptions, and referral forms
Total time spent (in minutes): 52
Anticipated Discharge: Today
Subjective/Interval History
-
Date of Service: December 20, 2024
sitting in chair -states pain is controlled
Objective Data
-
Vital Signs:
Vital Signs
Temp Pulse Resp BP Pulse Ox
98.0 F 87 16 100/62 100
12/20/24 07:35 12/20/24 07:35 12/20/24 07:35 12/20/24 07:35 12/20/24 07:35
I&O
12/19/24 12/20/24 12/21/24
06:59 06:59 06:59
Intake Total 650 / 650 660 / 660
Balance 650 / 650 660 / 660
--- NOTE | 2024-12-20 14:38 | W.DCSUMMARY ---
Discharge Summary
Discharge Data
Date of Admission: 12/12/24
Date of Discharge: 12/20/24
-
Pending Results: No
Hospital Course
84 yo woman with hx dementia, [place] resident, rheumatoid arthritis, moderate , HTN, GERD sent to the ER from wound clinic for progression of sacral wound. Patient was eval by general surgery. Wound was swabbed and sent for culture which showed
ESBL. Patient was on IV meropenem. Per surgery patient was started on wound care dressing changes twice daily. General surgery recommended against any debridement. Outpatient patient can follow-up with Dr. Linn at the wound care center and
can also obtain a secondary opinion if patient and family desires for skin flap. However unclear if patient is a candidate with poor nutrition status. Patient pain was controlled. Oxycodone medication was adjusted with 15 mg standing and will
twice daily as needed instead of 15 mg 4 times daily which patient was taking at home home. Wound care was continued throughout hospitalization. Patient was eval by physical and Occupational Therapy. Patient with discharge to half-way
facility.
Discharge Plan
-
Patient Disposition: Shelter/SNF
Discharge Diagnosis/Procedures: Stage IV Sacral Wound
Sinus tachycardia
Condition: Fair
Diet: As tolerated and Regular
Activity: With assistance
Driving Restrictions: No driving
Bathing Restrictions: OK to Shower
Other Services: PT and OT
Wound Care: Carefully cleanse region with Dakin's and take care to ensure that all undermining areas are being packed with Dakin's moistened Kerlix/gauze. Likely after 5 to 7 days of Dakin's packings any residual sloughing may be treated with
Santyl.
Continue with additional typical sacral decubitus precautions such as offloading, mobilize as able and ensuring adequate nutritional intake.
Referrals:
Jamil Alejo, [Family Provider, Family Practice] - in less than 1 week
Pj Linn MD [Active, Plastic Surgery] - in less than 1 week
[facility] [[facility]]
Additional Discharge Medication Instructions: Lisinopril was discontinued
Oxycodone regimen was switched to twice daily standing and additional twice daily as needed
Prescriptions:
New
Dakin's Solution 0.125 % Solution
1 applic topical BID Qty: 473 0RF
oxycodone 15 mg tablet
15 mg PO BID PRN (Reason: severe pain) Qty: 6 0RF
Continued
acetaminophen [Tylenol] 325 mg Tablet
650 mg PO Q6 PRN (Reason: Pain)
polyethylene glycol 3350 17 gram Powder In Packet
17 g PO DAILYPRN PRN (Reason: constipation)
pantoprazole 40 mg Tablet,Delayed Release (Dr/Ec)
40 mg PO DAILY
docusate sodium 100 mg Capsule
100 mg PO DAILY
sertraline 25 mg Tablet
25 mg PO HS
rosuvastatin 10 mg Tablet
10 mg PO DAILY@0900
aspirin [Children's Aspirin] 81 mg Tablet,Chewable
81 mg PO DAILY Qty: 30 0RF
lidocaine 4 % Adhesive Patch,Medicated
1 patch TOPICAL DAILY
celecoxib [Celebrex] 200 mg Capsule
200 mg PO BID
bupropion HCl 100 mg Tablet
100 mg PO DAILY
Changed
metoprolol succinate 25 mg tablet extended release 24 hr
25 mg PO DAILY Qty: 30 0RF
oxycodone 10 mg tablet
15 mg PO BID 3 Days Qty: 9 0RF
Discontinued
lisinopril 10 mg Tablet
10 mg PO BID Qty: 60 0RF
ondansetron 4 mg tablet,disintegrating
4 mg translingual DAILY
Discharge Orders:
Discharge Patient (As Directed); Ordered 12/20/24
Ordered By: Alejandro Perez
Discharge Date and Time
Print Language: LITHUANIAN
[2024-12-20 15:35] VITALS: BP 103/65
[2024-12-20] MEDS: LOVENOX SC (17:59)
[2024-12-20 19:08] VITALS: BP 118/77
== END 2024-12-20 19:43 | DRG 592 ==
LOC: 2 NORTH 18:12
PROVIDERS: Nurse Practitioner Gerontology; Registered Nurse; ADMITTING PHYSICIAN Student in an Organized Health Care Education/Training Program; ATTENDING PHYSICIAN Hospitalist; CONSULT PHYSICIAN Internal Medicine Infectious Disease; EMERGENCY PHYSICIAN Student in an Organized Health Care Education/Training Program; FAMILY PHYSICIAN Family Medicine; OTHER PHYSICIAN Surgery
DX: L89.154 Pressure ulcer of sacral region, stage 4 (principal); E43 Unspecified severe protein-calorie malnutrition; E87.1 Hypo-osmolality and hyponatremia; F03.A18 Unspecified dementia, mild, with other behavioral disturbance; G45.9 Transient cerebral ischemic attack, unspecified; F03.A4 Unspecified dementia, mild, with anxiety; F11.20 Opioid dependence, uncomplicated; D63.8 Anemia in other chronic diseases classified elsewhere; G89.29 Other chronic pain; M25.511 Pain in right shoulder; M06.9 Rheumatoid arthritis, unspecified; I45.10 Unspecified right bundle-branch block; I35.0 Nonrheumatic aortic (valve) stenosis; I10 Essential (primary) hypertension; K21.9 Gastro-esophageal reflux disease without esophagitis; G47.00 Insomnia, unspecified; Z68.1 Body mass index [BMI] 19.9 or less, adult; Z79.899 Other long term (current) drug therapy
CPT/HCPCS: 80048; 80053; 83735; 85025; 85027; 87070; 87077; 87186; 87205; 93005; 96374; 97116; 97163; 97167; 97530; 97535; 99215; 99285

== ENCOUNTER → 2024-12-23 09:09 | Outpatient (REF) | payer OTHER, MEDICARE, SELFPAY ==
[2024-12-23 10:29] LABS: % Eosinophils 3.4 % (0-6); % Immature Granulocytes 0.3 % (0-0.5); % Lymphocytes 16.6 % (20.5-51.1); % Monocytes 9.3 % (1.7-9.3); % Neutrophils 69.4 % (42.2-75.2); Absolute Basophils 0.1 10^3/uL (0-0.2); Absolute Eosinophils 0.3 10^3/uL (0-0.7); Absolute Lymphocytes 1.2 10^3/uL (1.2-3.4); Absolute Monocytes 0.7 10^3/uL (0.1-0.6); Absolute Neutrophils 5.1 10^3/uL (1.4-6.5); Hematocrit 25.8 % (37.0-47.0); Hemoglobin 8.5 g/dL (12.0-16.0); Mean Corp Hgb Conc. 32.9 g/dL (33.0-37.0); Mean Corpuscular Hgb 27.4 pg (27.0-31.0); Mean Corpuscular Volume 83.2 fL (81.0-99.0); Mean Platelet Volume 9.1 fL (7.4-10.4); Nucleated Red Blood Cells % 0 %; Platelet Count 379 10^3/uL (130-400); Red Cell Dist. Width 14.2 % (11.5-14.5); White Blood Cell Count 7.3 10^3/uL (4.8-10.8)
[2024-12-23 13:49] LABS: Blood Urea Nitrogen 19 mg/dl (7-17); Calcium 9.7 mg/dl (8.4-10.2); Carbon Dioxide 24 mmol/L (22-30); Chloride 99 mmol/L (98-107); Glucose 82 mg/dl (70-99); Potassium 4.7 mmol/L (3.5-5.1); Sodium 131 mmol/L (135-145); eGFR > 60.00
== END ==
LOC: OLABP 09:09
PROVIDERS: ATTENDING PHYSICIAN Family Medicine
DX: I10 Essential (primary) hypertension (principal); L89.154 Pressure ulcer of sacral region, stage 4; K21.9 Gastro-esophageal reflux disease without esophagitis
CPT/HCPCS: 36415; 80048; 85025

== ENCOUNTER → 2024-12-26 10:11 | Outpatient (REF) | payer OTHER, MEDICARE, SELFPAY ==
[2024-12-26 11:11] LABS: Blood Urea Nitrogen 18 mg/dl (7-17); Calcium 9.5 mg/dl (8.4-10.2); Carbon Dioxide 25 mmol/L (22-30); Chloride 99 mmol/L (98-107); Glucose 84 mg/dl (70-99); Potassium 4.6 mmol/L (3.5-5.1); Sodium 130 mmol/L (135-145); eGFR > 60.00
== END ==
LOC: OLABP 10:11
PROVIDERS: ATTENDING PHYSICIAN Family Medicine
DX: K21.9 Gastro-esophageal reflux disease without esophagitis (principal); I10 Essential (primary) hypertension; F02.811 Dementia in other diseases classified elsewhere, unspecified severity, with agitation; L89.154 Pressure ulcer of sacral region, stage 4
CPT/HCPCS: 36415; 80048

== ENCOUNTER → 2024-12-31 11:33 | Outpatient (REF) | payer OTHER, MEDICARE, SELFPAY ==
[2024-12-31 12:42] LABS: Blood Urea Nitrogen 18 mg/dl (7-17); Calcium 9.7 mg/dl (8.4-10.2); Carbon Dioxide 26 mmol/L (22-30); Chloride 102 mmol/L (98-107); Glucose 90 mg/dl (70-99); Potassium 4.5 mmol/L (3.5-5.1); Sodium 131 mmol/L (135-145); eGFR > 60.00
== END ==
LOC: OLABP 11:33
PROVIDERS: ATTENDING PHYSICIAN Family Medicine
DX: L89.154 Pressure ulcer of sacral region, stage 4 (principal); F02.811 Dementia in other diseases classified elsewhere, unspecified severity, with agitation; I10 Essential (primary) hypertension; K21.9 Gastro-esophageal reflux disease without esophagitis
CPT/HCPCS: 36415; 80048

== ENCOUNTER → 2025-01-06 11:11 | Outpatient (REF) | payer OTHER, MEDICARE, SELFPAY ==
[2025-01-06 11:54] LABS: Blood Urea Nitrogen 12 mg/dl (7-17); Calcium 9.4 mg/dl (8.4-10.2); Carbon Dioxide 25 mmol/L (22-30); Chloride 99 mmol/L (98-107); Glucose 90 mg/dl (70-99); Potassium 3.7 mmol/L (3.5-5.1); Sodium 130 mmol/L (135-145); eGFR > 60.00
== END ==
LOC: OLABP 11:11
PROVIDERS: ATTENDING PHYSICIAN Family Medicine
DX: L89.154 Pressure ulcer of sacral region, stage 4 (principal); F02.811 Dementia in other diseases classified elsewhere, unspecified severity, with agitation; K21.9 Gastro-esophageal reflux disease without esophagitis
CPT/HCPCS: 36415; 80048

== ENCOUNTER → 2025-01-08 11:31 | Outpatient (REF) | payer OTHER, MEDICARE, SELFPAY ==
[2025-01-08 12:57] LABS: Blood Urea Nitrogen 15 mg/dl (7-17); Calcium 9.4 mg/dl (8.4-10.2); Carbon Dioxide 26 mmol/L (22-30); Chloride 103 mmol/L (98-107); Glucose 86 mg/dl (70-99); Potassium 4.0 mmol/L (3.5-5.1); Sodium 132 mmol/L (135-145); eGFR > 60.00
== END ==
LOC: OLABP 11:31
PROVIDERS: ATTENDING PHYSICIAN Family Medicine
DX: L89.154 Pressure ulcer of sacral region, stage 4 (principal); K21.9 Gastro-esophageal reflux disease without esophagitis; I10 Essential (primary) hypertension; F02.818 Dementia in other diseases classified elsewhere, unspecified severity, with other behavioral disturbance
CPT/HCPCS: 36415; 80048

== ENCOUNTER → 2025-01-10 10:19 | Outpatient (REF) | payer OTHER, MEDICARE, SELFPAY ==
[2025-01-10 11:39] LABS: Blood Urea Nitrogen 14 mg/dl (7-17); Calcium 9.1 mg/dl (8.4-10.2); Carbon Dioxide 26 mmol/L (22-30); Chloride 100 mmol/L (98-107); Glucose 89 mg/dl (70-99); Potassium 4.3 mmol/L (3.5-5.1); Sodium 130 mmol/L (135-145); eGFR > 60.00
== END ==
LOC: OLABP 10:19
PROVIDERS: ATTENDING PHYSICIAN Family Medicine
DX: K21.9 Gastro-esophageal reflux disease without esophagitis (principal); I10 Essential (primary) hypertension; L89.154 Pressure ulcer of sacral region, stage 4; F02.818 Dementia in other diseases classified elsewhere, unspecified severity, with other behavioral disturbance
CPT/HCPCS: 36415; 80048

== ENCOUNTER → 2025-01-14 11:48 | Outpatient (REF) | payer OTHER, MEDICARE, SELFPAY ==
[2025-01-14 14:05] LABS: Blood Urea Nitrogen 18 mg/dl (7-17); Calcium 9.5 mg/dl (8.4-10.2); Carbon Dioxide 25 mmol/L (22-30); Chloride 100 mmol/L (98-107); Glucose 86 mg/dl (70-99); Potassium 4.4 mmol/L (3.5-5.1); Sodium 129 mmol/L (135-145); eGFR > 60.00
== END ==
LOC: OLABP 11:48
PROVIDERS: ATTENDING PHYSICIAN Family Medicine
DX: L89.154 Pressure ulcer of sacral region, stage 4 (principal); I10 Essential (primary) hypertension; K21.9 Gastro-esophageal reflux disease without esophagitis
CPT/HCPCS: 36415; 80048

== ENCOUNTER 2025-01-17 14:55 | Emergency (ER) | payer MEDICARE, SELFPAY ==
[2025-01-17 15:05] VITALS: BP 134/79
[2025-01-17 15:36] LABS: Hematocrit 28.2 % (37.0-47.0); Hemoglobin 9.5 g/dL (12.0-16.0); Mean Corp Hgb Conc. 33.7 g/dL (33.0-37.0); Mean Corpuscular Volume 84.2 fL (81.0-99.0); Nucleated Red Blood Cells % 0 %; Platelet Count 336 10^3/uL (130-400); Red Cell Dist. Width 14.4 % (11.5-14.5)
[2025-01-17 15:45] LABS: ALT (SGPT) 19 U/L (0-35); AST (SGOT) 26 U/L (14-36); Albumin 3.8 g/dl (3.5-5.0); Alkaline Phosphatase 43 U/L (38-126); Blood Urea Nitrogen 25 mg/dl (7-17); Calcium 9.3 mg/dl (8.4-10.2); Carbon Dioxide 25 mmol/L (22-30); Chloride 98 mmol/L (98-107); Glucose 98 mg/dl (70-99); Potassium 4.3 mmol/L (3.5-5.1); Sodium 127 mmol/L (135-145); Total Protein 6.6 g/dl (6.3-8.2); eGFR > 60.00
--- NOTE | 2025-01-17 17:25 | ED.GENMED ---
History of Present Illness
General
Chief Complaint: Abnormal Lab Value
Time Seen by Provider: 01/17/25 17:23
History of Present Illness
History of Present Illness:
TIME OF INITIAL EVALUATION
- 5:30 PM
REVIEW OF OLD RECORDS
- I reviewed records, in December of this year, the patient sodium has been in the 133 range and since that time has been slowly dropping to as low as 127 today. The patient was admitted with a sacral decubitus ulcer last December.
Note:
CHIEF COMPLAINT(S)
Low sodium levels
HISTORY OF PRESENT ILLNESS
The patient is an 84-year-old female who presented to the emergency department with a history of low sodium levels. She reports that she was recently given Lasix (furosemide) for the first time last night to induce diuresis, although she is not
experiencing any difficulty with urination. The patient is currently in rehabilitation at [facility] due to a sacral wound, which is healing very slowly. Sodium chloride tablets have been administered since January 10 to manage her low sodium levels.
She denies experiencing confusion or any other associated symptoms related to her sodium imbalance. The patients cardiac examination revealed a loud murmur, which she acknowledges having in the past.
ADDITIONAL HISTORY OBTAINED FROM SOURCES OTHER THAN THE PATIENT
Information regarding the administration of sodium chloride tablets and Lasix was confirmed from the current medication records.
EXTERNAL RECORDS REVIEWED
The patients medication history was reviewed, noting the initiation of sodium chloride tablets and the one-time administration of Lasix, 40 milligrams, given yesterday.
SOCIAL HISTORY
The patient is receiving rehabilitation care at [facility] due to a sacral wound.
MEDICATIONS
- Sodium chloride tablets, 1 gram daily
- Lasix (furosemide), 40 milligrams, one-time dose given yesterday
PHYSICAL EXAM
-General: Appears in no distress
-HEENT: Moist oral mucosa
-Cardiovascular: Regular rate and rhythm, loud systolic murmur heard in the upper sternal borders
-Pulmonary: No respiratory distress, breathing is nonlabored, equal and clear breath sounds
-Abdomen: Soft and nontender with no peritoneal signs
-Neurologic: The patient has evidence of some mild dementia, moving all extremities equally
-Extremities: Moves all extremities equally, no tenderness, no edema
-Psychiatric: The patient is pleasant but seems to be somewhat of an unreliable historian, she does not know the month
-Back: Sacral wound VAC noted
PLAN
A urine sample will be obtained to assess sodium levels and osmolarity to guide further management of the patients sodium imbalance. Evaluation of the sacral wound status might be considered to assess progress.
DIFFERENTIAL DIAGNOSIS
The Differential Diagnosis includes, in no particular order and is not limited to:
1. Hyponatremia secondary to medication effect
2. Dehydration
3. Cardiac failure
4. Renal impairment
5. Syndrome of inappropriate antidiuretic hormone secretion (SIADH)
6. Liver disease
7. Hypothyroidism
8. Adrenal insufficiency
9. Gastrointestinal losses
10. Medication side effects
HUMAN RESOURCES BENEFITS SPECIALIST
I discussed case with Dr. Rosa who recommends that the patient's stop the Zoloft (will have the patient wean off), fluid restrict to 50 ounces per day, and check BMP in 1 week.
LABS
- Sodium 127, urine sodium and urine awesome reviewed
UPDATE
-SUMMARY OF ENCOUNTER
The patient, an 84-year-old female, was evaluated in the emergency department for low sodium levels. A recent administration of furosemide was identified as a potential contributing factor, coupled with sertraline, which the patient confirmed she is
currently taking. The assistant professor nurse education was consulted, and recommendations to manage sodium levels were provided. The patient is not experiencing confusion, and her condition does not necessitate hospital admission.
PLAN
1. Implement fluid intake restriction.
2. Review the current dosage of sertraline and consider a possible adjustment due to its potential impact on sodium levels.
3. Follow the nephrologists recommendations as outlined for managing low sodium levels.
MANAGEMENT OF THE PATIENTS CARE WAS DISCUSSED WITH
[employer] Operator, regarding sodium management.
MEDICAL DECISION MAKING
- Number and Complexity of Problems Addressed: Chronic conditions affecting care include hyponatremia. Differential Diagnosis includes: Hyponatremia secondary to medication effect, Dehydration, Cardiac failure, Renal impairment, Syndrome of
inappropriate antidiuretic hormone secretion (SIADH), Liver disease, Hypothyroidism, Adrenal insufficiency, Gastrointestinal losses, Medication side effects.
- Data:
Category 2:
- Clinical information was obtained from an independent historian with assistant professor nurse education consultation for sodium management.
- Risk:
- Prescription drug management involved considering adjustments to sertraline.
DIAGNOSIS
1. Hyponatremia, unspecified (ICD-10: E87.1)
Past History
Past History
ED Past Medical History: Arrthythmia, CAD, HTN, Other (Dementia) and Other (Rheumatoid arthritis, anemia, dementia, pulmonary hypertension)
Social History
Tobacco: Non-smoker
Alcohol: None
Drug: None
Living: intermediate
Phy Exam
Physical Exam
Physical Exam:
See HPI
Course
Orders/Labs/Results
Orders:
Orders
01/17/25 15:16
Complete Blood Count/With Diff Urgent
Comprehensive Metabolic Panel Urgent
Serum Osmolality Urgent
Comment: ADDON
01/17/25 17:24
Add On- LAB Urgent
Tests Added?: osm
01/17/25 17:38
Osmolality, Random Urine Urgent
Date Specimen was Collected: 01/17/25
Time Specimen was Collected: 17:36
Urine Sodium Urgent
Date Specimen was Collected: 01/17/25
Time Specimen was Collected: 17:36
Abnormal Lab Results
01/17/25
15:16
RBC 3.35 L 10^6/uL
(4.20-5.40)
Hgb 9.5 L g/dL
(12.0-16.0)
Hct 28.2 L %
(37.0-47.0)
Absolute Neuts (auto) 6.8 H 10^3/uL
(1.4-6.5)
Absolute Lymphs (auto) 1.0 L 10^3/uL
(1.2-3.4)
Absolute Monos (auto) 0.9 H 10^3/uL
(0.1-0.6)
Neutrophils % 76.9 H %
(42.2-75.2)
Lymphocytes % 11.1 L %
(20.5-51.1)
Monocytes % 9.8 H %
(1.7-9.3)
Sodium 127 L mmol/L
(135-145)
BUN 25 H mg/dl
(7-17)
01/17/25 15:16
01/17/25 15:16
Vital Signs
Initial and Last Documented VS:
Initial Vital Signs
Temp Pulse Resp BP Pulse Ox
36.8 C 105 16 134/79 95
01/17/25 15:05 01/17/25 15:05 01/17/25 15:05 01/17/25 15:05 01/17/25 15:05
Last Documented Vital Signs
Temp Pulse Resp BP Pulse Ox
36.8 C 92 16 153/76 97
01/17/25 15:05 01/17/25 18:00 01/17/25 18:03 01/17/25 18:00 01/17/25 18:00
*Pulse Oximetry
SaO2: 95
Oxygen Mode of Delivery: Room air
Patient hypoxic: no
*Critical Care Note
Total Time (30-74mins, 75-104mins- exclusive of procedures): Not Applicable
ED Attending Note
-
Portions of this chart may have been created with voice recognition software.� Occasional wrong word or��sound alike� substitutions may have occurred due to the inherent limitations of voice recognition software.
Discharge Plan
Departure
Instructions: Hyponatremia
Prescriptions:
No Action
acetaminophen [Tylenol] 325 mg Tablet
650 mg PO Q6 PRN (Reason: Pain)
polyethylene glycol 3350 17 gram Powder In Packet
17 g PO DAILYPRN PRN (Reason: constipation)
pantoprazole 40 mg Tablet,Delayed Release (Dr/Ec)
40 mg PO DAILY
docusate sodium 100 mg Capsule
100 mg PO DAILY
sertraline 25 mg Tablet
25 mg PO HS
rosuvastatin 10 mg Tablet
10 mg PO DAILY@0900
aspirin [Children's Aspirin] 81 mg Tablet,Chewable
81 mg PO DAILY Qty: 30 0RF
lidocaine 4 % Adhesive Patch,Medicated
1 patch TOPICAL DAILY
celecoxib [Celebrex] 200 mg Capsule
200 mg PO BID
bupropion HCl 100 mg Tablet
100 mg PO DAILY
Dakin's Solution 0.125 % Solution
1 applic topical BID Qty: 473 0RF
metoprolol succinate 25 mg tablet extended release 24 hr
25 mg PO DAILY Qty: 30 0RF
oxycodone 15 mg tablet
15 mg PO BID PRN (Reason: severe pain) Qty: 6 0RF
oxycodone 10 mg tablet
15 mg PO BID 3 Days Qty: 9 0RF
Activity Restrictions/Additional Instructions:
I spoke to the assistant professor nurse education on-call, Dr. Rosa. He recommends that you stop the Zoloft (since the left cannot be abruptly stopped, I recommend that the Zoloft be weaned off). He also recommends a fluid restriction to 50 ounces per day. He also
recommends a repeat BMP in 1 week.
Interventions
Interventions:
*Risk Screen - Suicide Last Done: 01/17/25 15:01
*General Assessment Last Done: 01/17/25 17:40
*Neglect/Abuse Screening Last Done: 01/17/25 15:01
*ED- Fall Risk Assessment Last Done: 01/17/25 17:40
*ED COVID-19 Vaccine History Last Done: 01/17/25 17:40
Discharge Date and Time
Print Language: SYRIAC
[2025-01-17 17:40] VITALS: BP 153/77
[2025-01-17 18:00] VITALS: BP 153/76
[2025-01-17 19:18] VITALS: BP 135/64
== END 2025-01-17 20:39 | disposition home or self-care (01) ==
LOC: EMR 14:55
PROVIDERS: EMERGENCY PHYSICIAN Emergency Medicine; FAMILY PHYSICIAN Family Medicine
DX: E87.1 Hypo-osmolality and hyponatremia (principal); R01.1 Cardiac murmur, unspecified
CPT/HCPCS: 99283; 36415; 80048; 80053; 83930; 83935; 84300; 85025

== ENCOUNTER → 2025-01-20 09:39 | Outpatient (REF) | payer MEDICARE, SELFPAY ==
[2025-01-20 10:43] LABS: Blood Urea Nitrogen 22 mg/dl (7-17); Calcium 9.5 mg/dl (8.4-10.2); Carbon Dioxide 29 mmol/L (22-30); Chloride 105 mmol/L (98-107); Glucose 87 mg/dl (70-99); Potassium 4.2 mmol/L (3.5-5.1); Sodium 135 mmol/L (135-145); eGFR > 60.00
== END ==
LOC: OLABP 09:39
PROVIDERS: ATTENDING PHYSICIAN Family Medicine
DX: L89.154 Pressure ulcer of sacral region, stage 4 (principal); F02.811 Dementia in other diseases classified elsewhere, unspecified severity, with agitation; I10 Essential (primary) hypertension; K21.9 Gastro-esophageal reflux disease without esophagitis
CPT/HCPCS: 36415; 80048

== ENCOUNTER → 2025-01-23 09:17 | Outpatient (REF) | payer OTHER, MEDICARE, SELFPAY ==
[2025-01-23 12:41] LABS: Blood Urea Nitrogen 16 mg/dl (7-17); Calcium 9.7 mg/dl (8.4-10.2); Carbon Dioxide 27 mmol/L (22-30); Chloride 102 mmol/L (98-107); Glucose 90 mg/dl (70-99); Potassium 4.0 mmol/L (3.5-5.1); Sodium 134 mmol/L (135-145); eGFR > 60.00
== END ==
LOC: OLABP 09:17
PROVIDERS: ATTENDING PHYSICIAN Family Medicine
DX: L89.154 Pressure ulcer of sacral region, stage 4 (principal); F02.811 Dementia in other diseases classified elsewhere, unspecified severity, with agitation; K21.9 Gastro-esophageal reflux disease without esophagitis
CPT/HCPCS: 36415; 80048

== ENCOUNTER → 2025-01-29 10:21 | Outpatient (REF) | payer OTHER, MEDICARE, SELFPAY ==
[2025-01-29 11:23] LABS: Blood Urea Nitrogen 25 mg/dl (7-17); Calcium 9.5 mg/dl (8.4-10.2); Carbon Dioxide 28 mmol/L (22-30); Chloride 104 mmol/L (98-107); Glucose 85 mg/dl (70-99); Potassium 4.6 mmol/L (3.5-5.1); Sodium 136 mmol/L (135-145); eGFR > 60.00
== END ==
LOC: OLABP 10:21
PROVIDERS: ATTENDING PHYSICIAN Family Medicine
DX: L89.154 Pressure ulcer of sacral region, stage 4 (principal); F02.811 Dementia in other diseases classified elsewhere, unspecified severity, with agitation; I10 Essential (primary) hypertension; K21.9 Gastro-esophageal reflux disease without esophagitis
CPT/HCPCS: 36415; 80048

== ENCOUNTER → 2025-02-05 10:38 | Outpatient (REF) | payer OTHER, MEDICARE, SELFPAY ==
[2025-02-05 12:58] LABS: Blood Urea Nitrogen 20 mg/dl (7-17); Calcium 9.5 mg/dl (8.4-10.2); Carbon Dioxide 25 mmol/L (22-30); Chloride 101 mmol/L (98-107); Glucose 92 mg/dl (70-99); Potassium 4.6 mmol/L (3.5-5.1); eGFR > 60.00
[2025-02-05 13:11] LABS: Sodium 132 mmol/L (135-145)
== END ==
LOC: OLABP 10:38
PROVIDERS: ATTENDING PHYSICIAN Family Medicine
DX: L89.154 Pressure ulcer of sacral region, stage 4 (principal); F02.811 Dementia in other diseases classified elsewhere, unspecified severity, with agitation; I10 Essential (primary) hypertension; K21.9 Gastro-esophageal reflux disease without esophagitis
CPT/HCPCS: 36415; 80048

== ENCOUNTER → 2025-03-13 10:05 | Outpatient (REF) | payer OTHER, MEDICARE, SELFPAY ==
[2025-03-13 11:10] LABS: Hematocrit 28.4 % (37.0-47.0); Hemoglobin 9.1 g/dL (12.0-16.0); Mean Corp Hgb Conc. 32.0 g/dL (33.0-37.0); Mean Corpuscular Volume 87.7 fL (81.0-99.0); Nucleated Red Blood Cells % 0 %; Platelet Count 274 10^3/uL (130-400); Red Cell Dist. Width 15.8 % (11.5-14.5)
[2025-03-13 11:52] LABS: Blood Urea Nitrogen 30 mg/dl (7-17); Calcium 9.5 mg/dl (8.4-10.2); Carbon Dioxide 26 mmol/L (22-30); Chloride 105 mmol/L (98-107); Glucose 86 mg/dl (70-99); Potassium 4.1 mmol/L (3.5-5.1); Sodium 137 mmol/L (135-145); eGFR > 60.00
== END ==
LOC: OLABP 10:05
PROVIDERS: ATTENDING PHYSICIAN Family Medicine
DX: I10 Essential (primary) hypertension (principal); L89.154 Pressure ulcer of sacral region, stage 4; K21.9 Gastro-esophageal reflux disease without esophagitis; G45.9 Transient cerebral ischemic attack, unspecified; B96.20 Unspecified Escherichia coli [E. coli] as the cause of diseases classified elsewhere; F41.9 Anxiety disorder, unspecified; F03.90 Unspecified dementia, unspecified severity, without behavioral disturbance, psychotic disturbance, mood disturbance, and anxiety; D64.9 Anemia, unspecified; F11.20 Opioid dependence, uncomplicated; I27.20 Pulmonary hypertension, unspecified
CPT/HCPCS: 36415; 80048; 85025

== ENCOUNTER → 2025-03-26 16:10 | Outpatient (REF) | payer MEDICARE, SELFPAY ==
[2025-03-26 17:29] LABS: Hematocrit 32.1 % (37.0-47.0); Hemoglobin 10.3 g/dL (12.0-16.0); Mean Corp Hgb Conc. 32.1 g/dL (33.0-37.0); Mean Corpuscular Volume 89.7 fL (81.0-99.0); Nucleated Red Blood Cells % 0 %; Platelet Count 332 10^3/uL (130-400); Red Cell Dist. Width 15.7 % (11.5-14.5)
[2025-03-26 17:35] LABS: Blood Urea Nitrogen 27 mg/dl (7-17); Calcium 9.6 mg/dl (8.4-10.2); Carbon Dioxide 25 mmol/L (22-30); Chloride 106 mmol/L (98-107); Glucose 113 mg/dl (70-99); Potassium 4.4 mmol/L (3.5-5.1); Sodium 138 mmol/L (135-145); eGFR > 60.00
[2025-03-26 18:53] LABS: Urine Character Clear (Clear)
[2025-03-26 19:03] LABS: Urine White Cell 0-2 /HPF (0-5)
== END ==
LOC: OLABP 16:10
PROVIDERS: ATTENDING PHYSICIAN Family Medicine
DX: R41.82 Altered mental status, unspecified (principal); B96.20 Unspecified Escherichia coli [E. coli] as the cause of diseases classified elsewhere; N39.0 Urinary tract infection, site not specified
CPT/HCPCS: 36415; 80048; 81003; 81015; 85025; 87086

== ENCOUNTER → 2025-03-28 15:01 | Outpatient (REF) | payer MEDICARE, SELFPAY ==
[2025-03-28 16:54] LABS: Urine Character Clear (Clear)
[2025-03-28 17:13] LABS: Urine Squamous Cell 0-2 /LPF (Few)
[2025-03-28 17:15] LABS: Urine Red Blood Cell 16-20 /HPF (0-2); Urine White Cell 0-2 /HPF (0-5)
== END ==
LOC: OLABP 15:01
PROVIDERS: ATTENDING PHYSICIAN Family Medicine
DX: N39.0 Urinary tract infection, site not specified (principal)
CPT/HCPCS: 81003; 81015; 87086

== ENCOUNTER → 2025-04-16 11:19 | Outpatient (REF) | payer MEDICARE, SELFPAY ==
[2025-04-16 13:11] LABS: Hematocrit 26.3 % (37.0-47.0); Hemoglobin 8.2 g/dL (12.0-16.0); Mean Corp Hgb Conc. 31.2 g/dL (33.0-37.0); Mean Corpuscular Volume 90.1 fL (81.0-99.0); Nucleated Red Blood Cells % 0 %; Platelet Count 373 10^3/uL (130-400); Red Cell Dist. Width 15.4 % (11.5-14.5)
[2025-04-16 13:41] LABS: Blood Urea Nitrogen 23 mg/dl (7-17); Calcium 9.0 mg/dl (8.4-10.2); Carbon Dioxide 26 mmol/L (22-30); Chloride 110 mmol/L (98-107); Glucose 87 mg/dl (70-99); Potassium 3.9 mmol/L (3.5-5.1); Sodium 141 mmol/L (135-145); eGFR > 60.00
== END ==
LOC: OLABP 11:19
PROVIDERS: ATTENDING PHYSICIAN Family Medicine
DX: G45.9 Transient cerebral ischemic attack, unspecified (principal); K21.9 Gastro-esophageal reflux disease without esophagitis; D64.9 Anemia, unspecified; I10 Essential (primary) hypertension; R26.2 Difficulty in walking, not elsewhere classified; F41.9 Anxiety disorder, unspecified
CPT/HCPCS: 36415; 80048; 85025